=== PATIENT | male | born 1955 | race Caucasian/White ===

== ENCOUNTER → 2017-07-03 | Outpatient (CLI) | payer OTHER ==
[~2017-07-03] MED LIST: DRV100 PO
[2017-07-03 12:40] LABS: BASO % 0.8 %; BASO ABS # 0.06 K/uL (0-0.2); COMPLETE YES; HEMATOCRIT 44.6 % (42-52); IG% 0.4 %; LYMPH % 27.2 %; LYMPH ABS # 2.12 K/uL (1.2-3.4); MEAN CORPUSCULAR HEMOGLOBIN 30.7 pg (25-34); MEAN CORPUSCULAR HGB CONC 33.4 g/dl (32-36); MEAN PLATELET VOLUME 9.6 fL (7.4-10.4); MONO % 9.3 %; NEUT % 58.3 %; PLATELET COUNT 337 K/uL (130-400); RED BLOOD COUNT 4.85 M/uL (4.7-6.1); WHITE BLOOD COUNT 7.78 K/uL (4.8-10.8)
[2017-07-03 12:52] LABS: CHOLESTEROL/HDL RATIO 8.1
== END | disposition home or self-care (01) ==
LOC: C.LABBFT 07:57
PROVIDERS: ATTEND Physician Assistant Medical
DX: E78.5 Hyperlipidemia, unspecified (principal); D72.829 Elevated white blood cell count, unspecified

== ENCOUNTER → 2017-07-17 | Outpatient (CLI) | payer OTHER ==
[2017-07-17 17:22] LABS: BLOOD UREA NITROGEN 19 mg/dl (7-18); CALCIUM 9.2 mg/dl (8.5-10.1); CARBON DIOXIDE 30 mmol/L (21-32); GLUCOSE 87 mg/dl (70-99); POTASSIUM 4.4 mmol/L (3.5-5.1); SODIUM 140 mmol/L (136-145)
== END | disposition home or self-care (01) ==
LOC: C.LABBFT 14:08
PROVIDERS: ATTEND Physician Assistant Medical
DX: I10 Essential (primary) hypertension (principal)

== ENCOUNTER → 2017-09-01 | Outpatient (CLI) | payer OTHER | END | disposition home or self-care (01) | LOC: C.LAB1850 17:04 | PROVIDERS: ATTEND Physician Assistant Medical | DX: E55.9 Vitamin D deficiency, unspecified (principal) ==

== ENCOUNTER → 2017-09-18 | Outpatient (CLI) | payer OTHER ==
--- NOTE | 2017-09-18 08:38 | DIAGNOSTIC IMAGING REPORT ---
ULTRASOUND OF THE ABDOMINAL AORTA CLINICAL HISTORY: Aneurysm screening. Family history of aortic aneurysm. COMPARISON STUDY: No priors. TECHNIQUE: Multiple arreaga scale, color Doppler, and spectral Doppler sonograms of the abdominal aorta and iliac arteries are performed. Images are reviewed in the transverse and longitudinal planes. FINDINGS: There is minimal atherosclerotic calcification and irregularity noted throughout the abdominal aorta. The proximal abdominal aorta measures 2.4 cm in AP diameter, the mid abdominal aorta measures 2.1 x 1.5 cm, and the distal abdominal aorta measures 1.8 x 1.9 cm. The right common iliac artery measures up to 1.2 cm and the left common iliac artery measures up to 1.2 cm. Normal flow and spectral Doppler waveforms are seen within the aorta, with velocities measuring up to 104 cm/s. IMPRESSION: There is no sonographic evidence of abdominal aortic aneurysm. Electronically signed by: Cedrick Triplett M.D. 09/18/2017 8:37 AM Dictated Date/Time: 09/18/2017 8:30 AM
== END | disposition home or self-care (01) ==
LOC: C.ULTR 08:03
PROVIDERS: ATTEND Physician Assistant Medical
DX: Z82.49 Family history of ischemic heart disease and other diseases of the circulatory system (principal); I10 Essential (primary) hypertension; E78.5 Hyperlipidemia, unspecified

== ENCOUNTER → 2018-03-17 | Outpatient (CLI) | payer OTHER ==
[2018-03-17 12:37] LABS: BASO % 0.8 %; BASO ABS # 0.06 K/uL (0-0.2); EOS % 3.6 %; EOS ABS # 0.28 K/uL (0-0.5); HEMOGLOBIN 14.5 g/dL (14.0-18.0); IG# 0.02 K/uL (0.00-0.02); LYMPH % 28.6 %; LYMPH ABS # 2.25 K/uL (1.2-3.4); MEAN CELL VOLUME 91.5 fL (80-100); MEAN CORPUSCULAR HEMOGLOBIN 30.1 pg (25-34); MEAN PLATELET VOLUME 9.8 fL (7.4-10.4); MONO % 8.1 %; MONO ABS # 0.64 K/uL (0.11-0.59); NEUT % 58.6 %; NEUT ABS # 4.63 K/uL (1.4-6.5); PLATELET COUNT 303 K/uL (130-400); RED CELL DISTRIBUTION WIDTH SD 46.1 fL (36.4-46.3); WHITE BLOOD COUNT 7.88 K/uL (4.8-10.8)
[2018-03-17 13:08] LABS: ALBUMIN 3.5 gm/dl (3.4-5.0); ALKALINE PHOSPHATASE 81 U/L (45-117); ALT/SGPT 27 U/L (12-78); AST/SGOT 17 U/L (15-37); BLOOD UREA NITROGEN 17 mg/dl (7-18); CALCIUM 8.8 mg/dl (8.5-10.1); CARBON DIOXIDE 25 mmol/L (21-32); CHOLESTEROL 167 mg/dl (0-200); CREATININE 1.16 mg/dl (0.60-1.40); GLUCOSE 96 mg/dl (70-99); LDL CHOLESTEROL (DIRECT) 89 mg/dl; POTASSIUM 3.8 mmol/L (3.5-5.1); SODIUM 141 mmol/L (136-145); TOTAL PROTEIN 7.5 gm/dl (6.4-8.2)
== END | disposition home or self-care (01) ==
LOC: C.LABBFT 08:11
PROVIDERS: ATTEND Internal Medicine
DX: E78.5 Hyperlipidemia, unspecified (principal); E55.9 Vitamin D deficiency, unspecified; I10 Essential (primary) hypertension

== ENCOUNTER 2021-03-21 06:49 | Observation (INO) ==
--- NOTE | 2021-02-27 12:46 | PAT Medication Instructions ---
Medication Instructions Date of Service February 27, 2021 Home Medications Medication Instructions Recorded rosuvastatin 5 mg tablet 5 mg PO HS #30 tab 05/25/20 sildenafil (pulm.hypertension) 20 60 mg PO .COMPLEX PRN #32 tab 09/13/20 mg tablet cholecalciferol (vitamin D3) 25 mcg (1,000 unit) capsule 2,000 unit PO QAM coQ10 (ubiquinol) 100 mg capsule 100 mg PO QAM omega-3 fatty acids 1,000 mg capsule 1,000 mg PO QAM rosuvastatin 5 mg tablet 5 mg PO HS levothyroxine 75 mcg tablet 75 mcg PO QAM naproxen sodium 220 mg tablet (Aleve) 220 mg PO Q8H PRN sildenafil 60 mg PO DIRECTED PRN telmisartan 20 mg tablet 20 mg PO QAM ASK your surgeon for instructions naproxen sodium 220 mg tablet (Aleve) 220 mg PO Q8H PRN STOP taking 2 weeks before surgery (or as soon as possible if surgery is within 2 weeks) coQ10 (ubiquinol) 100 mg capsule 100 mg PO QAM omega-3 fatty acids 1,000 mg capsule 1,000 mg PO QAM DO NOT take the morning of surgery cholecalciferol (vitamin D3) 25 mcg (1,000 unit) capsule 2,000 unit PO QAM sildenafil 60 mg PO DIRECTED PRN telmisartan 20 mg tablet 20 mg PO QAM Take morning of surgery With a small sip of water, OTHERWISE NOTHING TO EAT OR DRINK AFTER MIDNIGHT: levothyroxine 75 mcg tablet 75 mcg PO QAM Take evening before surgery rosuvastatin 5 mg tablet 5 mg PO HS sildenafil 60 mg PO DIRECTED PRN (if needed) Other Notes If you have any questions please call us at [phone] or [phone] or [phone] or [phone]
--- NOTE | 2021-03-04 09:32 | Anesthesiology Consultation ---
Date of Service March 04, 2021 Assessment & Plan (1) Encounter for pre-operative examination: COVID screening: Per assessment on 03/04: Travel screen negative, no known COVID- 19 positive contacts or current COVID-19 related symptoms. Patient vaccinated. Surgeon arranging preop COVID testing. Awaiting results. Chart Review Chart Review: Acceptable Risk for Surgery and Patient seen in Pre Admission Testing Teaching & Discussion Pre-Anesthesia Teaching/Discussion Notes: Instructed NPO after midnight before surgery,except medications with 15 cc of water. Medication instructions provided according to the PAT guidelines. History Surgery Operation Date: 03/21/21 07:30 Proposed Procedures p Robotic Laparoscopic Radical Retropubic Prostatectomy, Possible Open, Possible Pelvic Lymph Node Disection Possible Suprapubic Tube Placement - Hever Alston, Height/Weight Height: 5 ft 10 in Weight: 97.9 kg Allergies Allergy/AdvReac Type Severity Reaction Status Date / Time atorvastatin AdvReac muscle Verified 02/27/21 10:53 weakness Medications Home Medications Medication Instructions Recorded Confirmed Last Taken cholecalciferol (vitamin D3) 25 2,000 unit PO QAM 01/17/20 02/27/21 Unknown mcg (1,000 unit) capsule coQ10 (ubiquinol) 100 mg capsule 100 mg PO QAM 01/17/20 02/27/21 Unknown omega-3 fatty acids 1,000 mg 1,000 mg PO QAM 01/17/20 02/27/21 Unknown capsule rosuvastatin 5 mg tablet 5 mg PO HS #30 tab 05/25/20 02/27/21 Unknown levothyroxine 75 mcg tablet 75 mcg PO QAM 02/27/21 02/27/21 Unknown naproxen sodium 220 mg tablet 220 mg PO Q8H PRN 02/27/21 02/27/21 Unknown (Aleve) sildenafil 60 mg PO DIRECTED PRN 02/27/21 02/27/21 Unknown telmisartan 20 mg tablet 20 mg PO QAM 02/27/21 02/27/21 Unknown Past Medical History Medical History Acid reflux Diet controlled Diverticular disease History of duodenal ulcer Remote hx in early HLD (hyperlipidemia) HTN (hypertension) Hypothyroidism Osteoarthritis Prostate cancer Dx 10/2020 Tinnitus Exercise / Class Metabolic Activity II 4-5 Yardwork/Stairs/Walk up hill Past Family History Family History Brother Hypercholesterolemia Other No family history of adverse response to anesthesia Past Surgical History Surgical History History of prostate biopsy History of wisdom tooth extraction Past Anesthesia History No Hx of Anesthesia Complications and No Family Hx of Anesthesia Complications History of PONV No Hx of PONV and No Hx of Motion Sickness Social History Smoking Status: Never smoker Do You Dip or Chew Tobacco: No Hx Alcohol Use: Yes alcohol intake frequency: holidays/special occasions only Hx Substance Use: No substance use type: does not use Review of Systems Patient denies chest pain, shortness of breath, dyspnea on exertion, fever, chills, cough, wheezing, palpitations. Physical Exam Vital Signs VITALS BP 121/83 P 85 TEMP WNL SP02 96%RA RESP 18 PHYSICAL Full cervical extension range of motion. Full TMJ range of motion. TMD 3 finger breaths Mallampati Score 1 Dentition: missing molars/sides, + crown (side) Lungs: clear throughout to auscultation Cardiac: regular rate and rhythm, no murmurs noted Spine: normal Carotid arteries: negative bruit Extremities: no edema Lab Results Anesthesia Preop Results Results Anesthesia Widget: WBC 9.90 K/uL (4.8-10.8) 03/04/21 Hgb 15.9 g/dL (14.0-18.0) 03/04/21 Hct 46.8 % (42-52) 03/04/21 Plt 509 K/uL (130-400) H 03/04/21 Na 139 mmol/L (136-145) 03/04/21 K 4.5 mmol/L (3.5-5.1) 03/04/21 Cl 106 mmol/L (98-107) 03/04/21 CO2 27 mmol/L (21-32) 03/04/21 BUN 19 mg/dl (7-18) H 03/04/21 Creat 1.06 mg/dl (0.6-1.4) 03/04/21 Glucose Level 102 mg/dl (70-99) H 03/04/21 TSH 1.790 uIu/ml (0.300-4.500) 03/04/21 HA1c 5.7 % (4.5-5.6) H 03/04/21 Urine Color Dark Yellow 03/04/21 Urine Appearance Turbid (Clear) A 03/04/21 Urine pH 5.0 (4.5-7.5) 03/04/21 Urine Specific [place] 1.025 (1.000-1.030) 03/04/21 Urine Protein Negative (Negative) 03/04/21 Urine Glucose (UA) Negative (Negative) 03/04/21 Urine Ketones Negative (Negative) 03/04/21 Urine Blood Negative (Negative) 03/04/21 Urine Nitrite Negative (Negative) 03/04/21 Urine Bilirubin Negative (Negative) 03/04/21 Urine Urobilinogen Negative (Negative) 03/04/21 Urine Leukocyte Esterase Negative (Negative) 03/04/21 Urine WBC (Auto) 1-5 /hpf (0-5) 03/04/21 Urine RBC (Auto) 0-4 /hpf (0-4) 03/04/21 Urine Hyaline Casts (Auto) 1-5 /lpf (0-5) 03/04/21 Urine Epithelial Cells (Auto) 0-5 /lpf (0-5) 03/04/21 Urine Bacteria (Auto) Negative (Negative) 03/04/21 Blood Type O Positive 03/04/21 Antibody Screen NEGATIVE 03/04/21 Testing Electrocardiogram Date: 03/04/21 NSR at 82bpm. Inferior infarct. NS TWA. Inferior infarct cited on 06/25/17 [facility] EKG (scanned into [employer]). Unremarkable stress echo done 07/2017. Chest X-Ray Date: 03/04/21 Findings: + NAD Stress Test Date: 07/28/17 Type: exercise Negative exercise stress echo/ECG for ischemia 99% MPHR. No exercise-induced chest pain. 10.1 METS. Rest EF 55 to 60%. Mild concentric LVH. No si gnificant valvular disease.
[~2021-03-21 06:49] MED LIST changes: -DRV100 PO; +HEPARIN SOD 5,000 UNIT/0.5 ML VIAL SQ SCH; +LACTATED RINGER'S 1,000 ML IV SCH; +LR 15ML/HR IV SCH; +ceFAZolin 2000MG 2,000 MG/15 ML SYR IV SCH
[2021-03-21] MEDS ORDERED: PROMETHAZINE HCL 12.5 MG in SODIUM CHLORIDE 0.9% 50 ML IV PRN (07:10)
[2021-03-21] MEDS ORDERED: HYDROmorphone INJ 1 MG/ML SYRINGE IV PRN (07:10)
[2021-03-21] MEDS ORDERED: ePHEDrine sulfate 50 MG/ML AMP IV PRN (07:10)
[2021-03-21] MEDS ORDERED: ONDANSETRON INJ 2 MG/ML 2 ML VIAL IV PRN ×2 (07:10→13:50)
[2021-03-21] MEDS ORDERED: ATROPINE SULFATE 0.1 MG/ML 10ML SYR IV PRN (07:10)
--- NOTE | 2021-03-21 07:23 | History & Physical Report ---
Date of Service March 21, 2021 Assessment & Plan (1) Prostate cancer: Plan: Risks and benefits discussed at length for procedure. These include bleeding, infection, injury to surrounding tissues or organs, and risks associated with anesthesia. Patient states understanding and agrees to proceed. Will sign consent and proceed. Plan for Robot Assisted Prostatectomy with possible pelvic lymph node dissection bilateral. History of Present Illness Primary Care Provider: Cornell Malhotra MD Patient here for procedure. No changes in medical issues. No major changes in urinary issues. Continued issues and concerns. No change in pain or discomfort. No severe fevers or chills. No chest pain or shortness of breath. Risks and benefits discussed at length for procedure. These include bleeding, infection, injury to surrounding tissues or organs, and risks associated with anesthesia. Patient and/or family states understanding and agrees to proceed. Consent and supporting information completed. Allergies Allergy/AdvReac Type Severity Reaction Status Date / Time atorvastatin AdvReac muscle Verified 02/27/21 10:53 weakness Home Medications Medication Instructions Recorded Confirmed Type cholecalciferol (vitamin D3) 25 2,000 unit PO QAM 01/17/20 02/27/21 History mcg (1,000 unit) capsule coQ10 (ubiquinol) 100 mg capsule 100 mg PO QAM 01/17/20 02/27/21 History omega-3 fatty acids 1,000 mg 1,000 mg PO QAM 01/17/20 02/27/21 History capsule rosuvastatin 5 mg tablet 5 mg PO HS #30 tab 05/25/20 02/27/21 Rx levothyroxine 75 mcg tablet 75 mcg PO QAM 02/27/21 02/27/21 History naproxen sodium 220 mg tablet 220 mg PO Q8H PRN 02/27/21 02/27/21 History (Aleve) sildenafil 60 mg PO DIRECTED PRN 02/27/21 02/27/21 History telmisartan 20 mg tablet 20 mg PO QAM 02/27/21 02/27/21 History Past Med/Surg History Medical History Acid reflux Diet controlled Diverticular disease History of duodenal ulcer Remote hx in early HLD (hyperlipidemia) HTN (hypertension) Hypothyroidism Osteoarthritis Prostate cancer Dx 10/2020 Tinnitus Surgical History History of prostate biopsy History of wisdom tooth extraction Family History Brother Hypercholesterolemia Other No family history of adverse response to anesthesia Social History Smoking Status: Never smoker Second Hand Exposure: Yes (hx); Do You Dip or Chew Tobacco: No; Hx Alcohol Use: Yes Hx Substance Use: No Preferred Language: [place] Communication Ability: Effective Mechanical Service Specialist Required: No Beliefs That Will Affect Care: None marital status: Current Living Situation: Spouse current occupational status: employed Feels Safe at Home: Yes Safety Concerns: Feels Safe At This Time Assistive Devices: Glasses Review of Systems All systems reviewed & are unremarkable except as noted in HPI & below Physical Exam Physical Exam: General: Alert/Arousable. No Acute illness. . HEENT: Inspection normal. Normal inspection of face. Normal inspection of neck. Psychologic: Normal affect/No change in mentation. Respiratory: No use of accessory muscles. No respiratory changes or exacerbation or changes with tachypnea or dyspnea. Cardiovascular: No tachycardia Skin: [place] and Dry. No new rashes or visible lesions. Abdomen: Normal inspection. No guarding. Results & Data ([facility]) Vital Signs (Past 12 Hours) Vital Signs Temp Pulse Resp BP Pulse Ox 03/21/21 07:12 37.1 C 85 20 122/81 94 PG Care Time/CCT Total # of Minutes Spent Total Time Spent with Patient: Total time spent is greater than 50% in coordination of care (as documented) at patient's floor/unit and/or counseling patient: Coding Level of Care Code None Diagnoses Prostate cancer C61
[2021-03-21] MEDS ORDERED: BUPIVACAINE 0.5 % 5 MG/1 ML MPF 30ML VIAL ONE (07:53)
[2021-03-21] MEDS ORDERED: fentaNYL citrate 100 MCG/2 ML VIAL ONE (08:01)
[2021-03-21] MEDS ORDERED: MIDAZOLAM HCL 1 MG/ML 2ML VIAL ONE (08:01)
[2021-03-21] MEDS ORDERED: ROCURONIUM BROMIDE 10 MG/ML 5 ML VIAL IV ONE ×3 (09:21→11:22)
[2021-03-21] MEDS ORDERED: LIDOCAINE 2% 2 ML VIAL/AMP(20MG/ML) INFIL ONE (09:21)
[2021-03-21] MEDS ORDERED: PROPOFOL IV EMULSION 10 MG/ML 20 ML VIAL IV ONE (09:21)
[2021-03-21] MEDS ORDERED: ONDANSETRON INJ 2 MG/ML 2 ML VIAL ONE (09:21)
[2021-03-21] MEDS ORDERED: LARYING-O-JET KIT (LTA) ONE (09:21)
[2021-03-21] MEDS ORDERED: DEXAMETHASONE SOD INJ 4 MG/ML VIAL ONE (09:21)
[2021-03-21] MEDS ORDERED: HYDROmorphone INJ 2 MG/ML SYR/VIAL ONE (09:39)
[2021-03-21] MEDS ORDERED: ePHEDrine sulfate 50 MG/ML SYR ONE (09:53)
[2021-03-21] MEDS ORDERED: GLYCOPYRROLATE 0.2 MG/ML VIAL ONE (09:53)
[2021-03-21] MEDS ORDERED: NEOSTIGMINE METHYLSULFATE 1 MG/ML 10ML VIAL ONE (09:53)
[2021-03-21] MEDS ORDERED: PHENYLEPHRINE 100MCG/ML 5ML SYR ONE ×2 (09:53→10:39)
[2021-03-21] MEDS ORDERED: FLOSEAL HEMOSTATIC MATRIX 10ML TOP ONE (11:11)
--- NOTE | 2021-03-21 12:14 | Operative Report ---
PG Post Operative Report Pre & Post Diagnosis Operation Date: 03/21/21 08:30 Pre-Op Diagnosis: Prostate Cancer Post-Op Diagnosis: Prostate Cancer I identified the patient and participated in the time-out.: Yes Procedure Operation Date: 03/21/21 08:30 Actual Procedures p Robotic Laparoscopic Radical Retropubic Prostatectomy and bilateral pelvic lymph node dissection (Not Applicable) - Hever Alston DO Surgeon Hever Alston, II, DO Administrative Services Specialist KIARA Casper Estimated Blood Loss 50 Findings Consistent with Post-Op Diagnosis Significant adhesion posterior prostate Specimens Prostate Left Nodes Right Nodes Drains 18 Fr Silicon Catheter 10 Fr Flat drain Anesthesia Type General Complications none Disposition Disposition: Recovery Room Indications Patient with Prostate Cancer. Risk and benefits were discussed at length. Patient elected to undergo robotic assisted laparoscopic Radical Prostatectomy. Description of Procedure The patient was brought to the operative suite and placed under general endotracheal intubation anesthesia in the supine position. The patient was transferred to the dorsal lithotomy position. At this point, the patient prepped and draped in the usual sterile fashion and a timeout was completed. Preoperative antibiotics of Ancef 2 grams had been given. SANG's and SCD's were placed on the patient's lower extremities. A catheter was placed using sterile technique. With the time out completed the patient was placed into Trendelenburg and the skin at the umbilicus was anesthetized. A small incision was made superior to the umbilicus. A Varess Needle was placed and confirmed to be in the abdominal cavity. Water drop test passed. The Abdominal cavity was insufflated to 15 mmHG. The camera port was then placed. A laparoscopic camera was placed into the port and the abdominal cavity inspected. No concerning features were noted. At this point, the skin was marked for port placement and 8mm working ports were placed. The skin was anesthetized down to fascia and an approx 1cm incision was made to place the 3 x 8mm ports. A 12 mm and 5 mm human resources assistant ports were also placed in similar fashion under direct visualization. The patient was transferred into steep Trendelenburg position and the legs lowered. The robot was positioned and docked. The camera was placed and all trocars were positioned under direct visualization. Pennie CRAIG was integral in port placement, camera utilization, and docking procedure. She remained in sterile attire and then proceeded to assist the remainder of the case. At this point, I transitioned to the robotic console. At this point, the sigmoid colon was mobilized superiorly and the pelvis assessed. Adhesions were freed to allow mobilization. The peritoneum in the midline was opened between rectum and bladder and the vas deferens and seminal vesicles exposed. These were dissected with blunt technique. The vas was clipped and cut and mobilized. Cautery was used to assist dissection avoiding the tissue posteriorly near the rectum. The tissues lateral to the seminal vesicles were clipped with a hemolock and all bleeding controlled. This was taken as inferior as possible from this position. The medial umbilical ligaments were then identified and the peritoneum directly lateral on the right followed by the left was opened. The tissues were bluntly dissected to free the bladder's lateral attachments. This was taken down to the pubic bone and exposed the endopelvic fascia bilaterally. The medial ligaments were cut and the bladder dropped. The tissues was dissected anterior to the prostate. The endopelvic fascia on each side was then opened and the lateral edges of the prostate dissected. The Dorsal venous complex of the prostate was dissected and assessed. A 2-0 suture was used to ligate the vessels. A suspension stitch was used and clipped. Electrocautery was used to cut the anterior attachments, the puboprostatic ligaments, and venous tissues. The alves was manipulated to better visual the bladder neck and dissection was taken using electrocautery. The bladder neck was opened and dissected from the prostate. The UO were identified and dissection taken in a direction to avoid each side. The vas stump and seminal vesicles were exposed and used to assist in traction to dissect. The prostatic pedicles were better exposed. The posterior prostate was dissected. An attempt was made to limit cautery and utilize cold dissection of the lateral posterior prostate to attempt preservation of the neurovascular bundle bilaterally. Hemolock clips were utilized to clip the prostatic pedicle bilaterally. The dissection was taken to the apex of the prostate. The anterior prostate was released and the urethra exposed. Both sides posteriorly were fairly adhered to the surrounding tissues. Cold cutting was used to open the anterior portion and expose the catheter. This was removed and the urethra incised. The prostate was further freed and grasped and removed from the field. The entire dissection bed was inspected. Hemostatic agent was placed in the region. No areas of injury or bleeding was noted. Care was taken to examine the perirectal tissues. A probe was placed and no injuries or other issues were observed. The bladder neck and urethra were then approximated with a running barbed suture starting at the 5 o'clock position and moving to the 12 o'clock on each side. A small area at the anterior bladder was closed with a 2-0 Vicryl suture in two layers. This was tied at the anterior portion. A leak test was completed without any evidence of issues. The right and left pelvic lymph tissue was identified in relation to the iliac vessels. Distal dissection was taken to the Node of [place]. Inferiorly the obtorator vessels and nerve were identified. Lymphatic tissue within the surround fat tissue was dissected. This packet of tissues were sent for pathologic analysis and lymph node assessment. This was done for each separate side. Hemostatic agent was placed on the exposed vessels. The entire dissection space was inspected one final time. No bleeding or injuries or areas of concern were noted. No tumor or other concerning features were noted. At this point, the robot was undocked and moved away from the patient. The patient was taken out of Trendelenberg. The port sites were all assessed laparoscopically. The endoscopic bag was moved into the midline port. The 12 mm port site was used to place a 10 Fr Flat drain. This was secured with a nylon suture. The other ports were assessed and no issues observed. The umbilical incision was opened further exposing fascia which was then opened in order to removed the prostate in the bag. The prostate was removed. A running PDS suture was used to close fascia. The skin at each site was closed with [place]. The area was cleaned and glue placed on each incision. The patient was cleaned and bandaged, aroused from anesthesia, and transferred to the pacu in stable condition having tolerated the procedure well with no complications. I was present and participated in all aspects of the procedure. Pennie CRAIG was critical in the portions as mentioned above. Will plan to observe postoperatively and monitor. Alves to be remain in place until followup. I attest to the content of the Intraoperative Record and any orders documented therein. Any exceptions are noted below.
[2021-03-21] MEDS: fentaNYL citrate 100 MCG/2 ML VIAL IV PRN ×2 (12:58→13:04)
[2021-03-21 13:08] LABS: Basophils # (auto) 0.03 K/uL (0-0.2); Basophils % (auto) 0.2 %; Eosinophils # (auto) 0.02 K/uL (0-0.5); Eosinophils % (auto) 0.1 %; Hemoglobin 14.7 g/dL (14.0-18.0); Immature Granulocytes # (auto) 0.19 K/uL (0.00-0.02); Lymphocytes # (auto) 0.95 K/uL (1.2-3.4); Mean Corpuscular Hemoglobin 31.8 pg (25-34); Mean Corpuscular Volume 95.2 fL (80-100); Monocytes # (auto) 0.14 K/uL (0.11-0.59); Monocytes % (auto) 0.7 %; Neutrophils # (auto) 17.61 K/uL (1.4-6.5); Platelet Count 434 K/uL (130-400); RDW Coefficient of Variation 15.8 % (11.5-14.5); RDW Standard Deviation 54.6 fL (36.4-46.3); Red Blood Count 4.62 M/uL (4.7-6.1); White Blood Count 18.94 K/uL (4.8-10.8)
[2021-03-21 13:19] LABS: Mean Corpuscular Hgb Conc 33.4 g/dL (32-36)
--- NOTE | 2021-03-21 13:24 | Anesthesiology Progress Note ---
Date of Service March 21, 2021 Anesthesia Post Procedure Vital Signs Vital Signs: Temp Pulse Pulse Resp BP Pulse Ox 03/21/21 13:20 36.2 C L 70 14 111/68 98 03/21/21 13:10 89 14 109/78 93 03/21/21 13:00 66 14 106/79 99 03/21/21 12:50 70 16 108/77 100 03/21/21 12:40 67 14 117/78 100 03/21/21 12:30 74 16 118/83 100 03/21/21 12:20 36.0 C L 88 15 118/89 97 03/21/21 07:12 37.1 C 85 20 122/81 94 Pain Intensity Abdomen: Pain Intensity: 3 Transfer of Care Handoff Completed per policy Notes Mental Status: alert / awake / arousable and participated in evaluation Patient Amnestic to Procedure: Yes Nausea / Vomiting: adequately controlled Pain: adequately controlled Airway Patency, RR, SpO2: stable & adequate BP & HR: stable & adequate Hydration State: stable & adequate Anesthetic Complications: no major complications apparent and Pt Satisfied with anesthetic care
[2021-03-21 13:27] LABS: BUN Creatinine Ratio 14.8 (10-20); Calcium 8.5 mg/dl (8.5-10.1); Creatinine Clr Calc Pharmacy 68.3 ml/min; Est GFR (African American) 67.3 ml/min; Est GFR (Non-African American) 58.1 ml/min; Potassium 4.2 mmol/L (3.5-5.1)
[2021-03-21] MEDS ORDERED: oxyCODONE HCL IR 5 MG TAB (IMMEDIATE RELEASE) PO PRN (13:50)
[2021-03-21] MEDS ORDERED: MoRPHine SULFATE 4 MG/ML 1 ML CARP\\VIAL IV PRN (13:50)
[2021-03-21] MEDS ORDERED: MoRPHine SULFATE 2 MG/ML CARP IV PRN (13:50)
[2021-03-21] MEDS: LACTATED RINGER'S 1,000 ML IV SCH (14:25)
[2021-03-21] MEDS: ACETAMINOPHEN 325 MG TAB PO PRN ×2 (14:27→20:22)
[2021-03-21] MEDS: ceFAZolin 2000MG 2,000 MG/15 ML SYR IV SCH (16:45)
[2021-03-21] MEDS: HEPARIN SOD 5,000 UNIT/0.5 ML VIAL SQ SCH (20:23)
[2021-03-21] MEDS ORDERED: ROSUVASTATIN CALCIUM 5 MG TAB PO SCH (21:00)
[2021-03-21] MEDS ORDERED: COUGH DROP (SUGAR FREE) LOZ 24 LOZ/1 BOX BUCCAL ONE (23:58)
[2021-03-22] MEDS: LACTATED RINGER'S 1,000 ML IV SCH ×2 (00:01→10:51)
[2021-03-22] MEDS: ceFAZolin 2000MG 2,000 MG/15 ML SYR IV SCH (00:01)
[2021-03-22] MEDS: oxyCODONE HCL IR 5 MG TAB (IMMEDIATE RELEASE) PO PRN ×3 (00:02→16:17)
[2021-03-22] MEDS ORDERED: LEVOTHYROXINE SODIUM 75 MCG TABLET PO SCH (06:30)
[2021-03-22 06:31] LABS: Basophils # (auto) 0.02 K/uL (0-0.2); Basophils % (auto) 0.1 %; Hematocrit (blood only) 40.7 % (42-52); Hemoglobin 13.5 g/dL (14.0-18.0); Immature Granulocytes # (auto) 0.19 K/uL (0.00-0.02); Immature Granulocytes % (auto) 1.2 %; Lymphocytes # (auto) 1.64 K/uL (1.2-3.4); Lymphocytes % (auto) 10.4 %; Mean Corpuscular Hemoglobin 31.3 pg (25-34); Mean Corpuscular Hgb Conc 33.2 g/dL (32-36); Mean Corpuscular Volume 94.2 fL (80-100); Mean Platelet Volume 8.9 fL (7.4-10.4); Monocytes # (auto) 1.35 K/uL (0.11-0.59); Monocytes % (auto) 8.6 %; Neutrophils # (auto) 12.56 K/uL (1.4-6.5); Neutrophils % (auto) 79.7 %; Platelet Count 451 K/uL (130-400); RDW Coefficient of Variation 15.7 % (11.5-14.5); RDW Standard Deviation 53.7 fL (36.4-46.3); Red Blood Count 4.32 M/uL (4.7-6.1); White Blood Count 15.76 K/uL (4.8-10.8)
[2021-03-22 07:00] LABS: BUN Creatinine Ratio 12.9 (10-20); Calcium 8.5 mg/dl (8.5-10.1); Est GFR (African American) 81.5 ml/min; Est GFR (Non-African American) 70.3 ml/min; Potassium 4.1 mmol/L (3.5-5.1)
[2021-03-22] MEDS ORDERED: TELMISARTAN 20 MG TAB PO SCH (09:00)
[2021-03-22] MEDS: HEPARIN SOD 5,000 UNIT/0.5 ML VIAL SQ SCH (09:44)
--- NOTE | 2021-03-22 10:10 | Urology Progress Note ---
Date of Service March 22, 2021 Assessment & Plan (1) Prostate cancer: Plan: 65 yo M POD #1 s/p Robotic Laparoscopic-Assisted Radical Retropubic Prostatectomy with Dr. Alston. - Doing well, progressing as expected - Afebrile, post op lab work reviewed and as expected - Minimal pain, managing well with PO medication - Tolerating clear liquid diet - advance to full liquids, d/c IV fluids - Encouraged OOB ambulation - Incisions appropriate - Rasmussen catheter intact, patent and draining clear yellow with minimal pink tinge - Maintain Rasmussen catheter upon discharge - D/c JUS drain prior to discharge - Expected clinical course reviewed, all questions answered - Anticipate discharge to home later today if he continues to progress as expected - Will arrange appropriate outpatient follow-ups Admission and Anticipated Discharge Date Admission Date: March 21, 2021 Subjective 65 yo M POD #1 s/p Robotic Laparoscopic Radical Retropubic Prostatectomy and bilateral pelvic lymph node dissection. Patient seen and examined at bedside this AM. No acute issues overnight, though notes that he did not sleep well. Reports some incisional pain, well managed with PO oxycodone medication. Rasmussen catheter intact, patent and draining clear yellow urine with minimal pink. Tolerating clear liquid diet. No nausea or vomiting. He has been out of bed to the chair. No fever or chills. JUS drain with 25 mL output overnight. Review of Systems Constitutional: as per Subjective / HPI Gastrointestinal: as per Subjective / HPI Genitourinary: + as per Subjective / HPI Physical Exam Constitutional: well developed and well nourished; no acute distress and not ill appearing Respiratory: normal respiratory effort and able to speak in complete sentences; no respiratory distress and no labored breathing Cardiovascular: Extremities: no pedal edema Gastrointestinal (Abdomen): Inspection/Auscultation: abdomen normal to inspection; abdomen not distended Percussion/Palpation: abdomen soft; abdomen nontender and no guarding Skin: Surgical incisions appear healthy and well approximated with atul intact, no erythema. JUS right abdomen with scant sanguinous output, dressing with moderate sanguinous drainage. Neurologic: moves all extremities and awake Psychiatric: Orientation: alert, oriented x 3 and cooperative Results & Data ([facility]) Vital Signs (Past 12 Hours) Vital Signs Temp Pulse Resp BP Pulse Ox 03/22/21 07:11 36.7 C 70 18 161/91 H 97 03/22/21 03:23 36.7 C 88 16 137/84 94 03/22/21 00:17 36.6 C 103 H 20 147/97 H 97 PG Care Time/CCT Total # of Minutes Spent Total Time Spent with Patient: Total time spent is greater than 50% in coordination of care (as documented) at patient's floor/unit and/or counseling patient: Coding Level of Care Code 01530 Subseq Hosp Care Lvl 2 Diagnoses Prostate cancer C61
[2021-03-22] MEDS: ACETAMINOPHEN 325 MG TAB PO PRN (16:17)
== END 2021-03-22 16:56 | disposition home or self-care (01) ==
LOC: ASU 06:49 → INTOOBSV 12:24 → 3E 12:24
DX: E78.5 Hyperlipidemia, unspecified; Z79.899 Other long term (current) drug therapy; I10 Essential (primary) hypertension; K21.9 Gastro-esophageal reflux disease without esophagitis; C61 Malignant neoplasm of prostate

== ENCOUNTER 2024-05-12 05:39 | Inpatient (IN) ==
--- NOTE | 2024-05-02 11:32 | Anesthesiology Consultation ---
Date of Service May 02, 2024 Assessment & Plan (1) Encounter for pre-operative examination: Infectious disease screening: Per assessment on 05/02/24: No known recent infectious disease contacts. Patient had onset of URI symptoms 2+ weeks ago- symptoms resolved except residual cough (improving). Multiple Covid home tests negative. DOS not until 05/12/24. Patient advised to contact surgeon/PAT if symptoms not resolved/at baseline prior to surgery. Chart Review Chart Review: Acceptable Risk for Surgery and Patient NOT seen in Pre Admission Testing History Surgery Operation Date: 05/12/24 07:15 Proposed Procedures p Laparoscopic Right Hemicolectomy - Camden Durbin, DO Height/Weight Height: 5 ft 10 in Weight: 97.522 kg Allergies Allergy/AdvReac Type Severity Reaction Status Date / Time atorvastatin AdvReac Unknown muscle Verified 05/02/24 10:24 weakness Medications Home Medications Medication Instructions Recorded Confirmed Last Taken cholecalciferol (vitamin D3) 125 125 mcg PO QAM 03/26/21 05/02/24 03/10/24 07:00 mcg (5,000 unit) tablet (Vitamin D3) melatonin 5 mg chewable tablet 5 mg PO HS PRN Sleep 03/26/21 05/02/24 7 Months Ago ~06/14/22 coQ10 (ubiquinol) 100 mg capsule 100 mg PO QAM 09/04/21 05/02/24 03/10/24 07:00 krill 350 mg-omega-3 90 mg-dha 24 1 cap PO QAM 09/04/21 05/02/24 03/10/24 07:00 mg-epa 50 hc-kozrdgw-azjul capsule (MegaRed [place]-3 Krill Oil) famotidine 20 mg tablet 20 mg PO UD PRN Acid Reflux 09/04/22 05/02/24 2 Months Ago ~11/12/22 ondansetron 4 mg disintegrating 4 mg PO Q6H PRN nausea and 01/12/23 05/02/24 Unknown tablet vomiting #20 tabs telmisartan 20 mg tablet 20 mg PO QAM 90 days #90 tabs 06/09/23 05/02/24 03/11/24 07:00 sildenafil (pulm.hypertension) 20 20 mg PO ONCE PRN sexual activity 08/18/23 05/02/24 03/11/24 03:15 mg tablet #30 tabs levothyroxine 75 mcg tablet 75 mcg PO QAM #90 tabs 09/04/23 05/02/24 03/11/24 07:00 aspirin 81 mg capsule 81 mg PO QAM 03/02/24 05/02/24 03/10/24 07:00 hydroxyurea 500 mg capsule 500 - 1,000 mg PO UD 03/02/24 05/02/24 03/10/24 07:00 meclizine 12.5 mg tablet 12.5 - 25 mg PO TID PRN dizziness 03/02/24 05/02/24 Unknown omeprazole 20 mg capsule,delayed 40 mg PO DAILY PRN gerd 03/02/24 05/02/24 Unknown release polyethylene glycol 3350 17 17 g PO DAILY PRN Constipation 03/02/24 05/02/24 Unknown gram/dose oral powder (Miralax) rosuvastatin 5 mg tablet 5 mg PO HS 03/02/24 05/02/24 03/10/24 22:30 Past Medical History Medical History Acid reflux Allergic rhinitis Anxiety Arthritis Back problem Chronic anemia Colon cancer (03/2024) Constipation Diverticular disease Erectile dysfunction History of duodenal ulcer Remote hx in early History of prostate cancer Dx 2020, s/p prostatectomy History of prostate cancer (2020) Hypercholesteremia Hypercholesteremia Hypertension Hypothyroidism Male stress incontinence Myalgia chronic Myelofibrosis Osteoarthritis Polycythemia vera Dx 06/2023, w/myelofibrosis Follows with Dr. Valera Syncope Remote hx s/p unremarkable holter, no recent issues Tinnitus Past Family History Family History Brother Carotid artery disease Heart disease H/O cardiac surgery Mother Diabetes Stroke Father , 81yo Heart disease Cardiac stent Arthritis Aunt Diabetes Grandfather Heart disease Family/Other Hypertension Other No family history of adverse response to anesthesia Denies family history of Ovarian cancer Prostate cancer Breast cancer Colorectal cancer Past Surgical History Surgical History History of colonoscopy [facility] (02/2024) History of esophagogastroduodenoscopy (EGD) History of prostate biopsy History of robot-assisted laparoscopic radical prostatectomy Robotic laparoscopic radial retropubic prostatectomy, pelvic lymph node dissection (03/21/21): Grade view 2, MAC#3, ETT 7.5 at [facility] History of wisdom tooth extraction Hx laparoscopic cholecystectomy 2022 Social History Smoking Status: Never smoker Do You Dip or Chew Tobacco: No Hx Alcohol Use: No alcohol intake frequency: other Hx Substance Use: No substance use type: does not use Lab Results Anesthesia Preop Results Results Anesthesia Widget: WBC 6.58 K/ul (4.8-10.8) 04/27/24 Hgb 11.9 g/dl (14.0-18.0) L 04/27/24 Hct 35.7 % (42.0-52.0) L 04/27/24 Plt 253 K/uL (130-400) 04/27/24 Na 141 mmol/L (136-145) 04/27/24 K 4.1 mmol/L (3.5-5.1) 04/27/24 Cl 106 mmol/L (98-107) 04/27/24 CO2 28 mmol/L (21-32) 04/27/24 BUN 25 mg/dl (6-23) H 04/27/24 Creat 1.08 mg/dl (0.6-1.4) 04/27/24 Glucose Level 86 mg/dl (70-99(Fasting)) 04/27/24 Testing Electrocardiogram Date: 05/02/24 Findings: + NSR @ (67) Other Testing Abdomen/Pelvis CT Date: 04/08/24 IMPRESSION: No acute intra-abdominal or intrapelvic abnormality. Decreased size of the previously described pathologic mesenteric lymph nodes. No new or progressive lymphadenopathy. Colonic diverticulosis. Cholecystectomy and prostatectomy. Chest CT Date: 04/08/24 IMPRESSION:No evidence of metastatic disease above the diaphragm.
[2024-05-12] MEDS: LR 15ML/HR IV SCH (06:34)
[2024-05-12] MEDS ORDERED: ONDANSETRON INJ 2 MG/ML 2 ML VIAL ONE (06:57)
[2024-05-12] MEDS ORDERED: LIDOCAINE 2% 20 MG/ML 5 ML SYR IV ONE (06:57)
[2024-05-12] MEDS ORDERED: ROCURONIUM BROMIDE 10 MG/ML 5 ML VIAL IV ONE ×2 (06:57→07:45)
[2024-05-12] MEDS ORDERED: PROPOFOL IV EMULSION 10 MG/ML 20 ML VIAL IV ONE (06:57)
[2024-05-12] MEDS ORDERED: DexMEDEtomidine HCL IV 100 MCG/ML VIAL IV ONE (06:58)
[2024-05-12] MEDS ORDERED: SUGAMMADEX SODIUM 200 MG/2 ML VIAL IV ONE ×2 (06:58→10:11)
[2024-05-12] MEDS ORDERED: MIDAZOLAM HCL 1 MG/ML 2ML VIAL ONE (06:58)
[2024-05-12] MEDS ORDERED: fentaNYL citrate PF 100 MCG/2 ML VIAL ONE (06:58)
--- NOTE | 2024-05-12 06:59 | History & Physical Bridge Note ---
Date of Service May 12, 2024 History & Physical Bridge Note I have examined the patient, reviewed the History & Physical and in the interval since the performance of the History & Physical I have noted the following changes of clinical significance: no changes noted
[2024-05-12] MEDS ORDERED: PROMETHAZINE HCL 6.25 MG in SODIUM CHLORIDE 0.9% 50 ML IV PRN (07:10)
[2024-05-12] MEDS ORDERED: FLUMAZENIL 0.1 MG/1 ML 10 ML VIAL IV PRN (07:10)
[2024-05-12] MEDS ORDERED: LABETALOL HCL IV 5 MG/ML 20ML IV PRN (07:10)
[2024-05-12] MEDS ORDERED: NALOXONE HCL 0.4 MG/1 ML VIAL/CARP IV PRN (07:10)
[2024-05-12] MEDS ORDERED: ATROPINE SULFATE 0.1 MG/ML 10ML SYR IV PRN (07:10)
[2024-05-12] MEDS ORDERED: ePHEDrine sulfate 50 MG/ML AMP IV PRN (07:10)
[2024-05-12] MEDS: ceFAZolin 2000MG 2,000 MG/15 ML SYR IV SCH ×2 (07:25→16:18)
[2024-05-12] MEDS ORDERED: HYDROmorphone INJ 2 MG/ML SYR/VIAL ONE (07:45)
[2024-05-12] MEDS: BUPIVACAINE/EPINEPHRINE 0.5% MPF 1:200,000 30 ML VIAL ONE (10:10)
--- NOTE | 2024-05-12 10:37 | Operative Report ---
PG Post Operative Report Pre & Post Diagnosis Operation Date: 05/12/24 07:15 Pre-Op Diagnosis: Primary Adenocarcinoma of Ascending Colon Post-Op Diagnosis: Primary Adenocarcinoma of Ascending Colon I identified the patient and participated in the time-out.: Yes Procedure Operation Date: 05/12/24 07:15 Actual Procedures p Laparoscopic Right Hemicolectomy(Right) - Camden Durbin DO Surgeon Camden Durbin DO Portfolio Architect Mike trotter, rose marie Comer Estimated Blood Loss 20 Findings Consistent with Post-Op Diagnosis Specimens terminal ileum, right colon, portion of transverse colon Description of Procedure After informed consent was obtained the patient was taken to the operating room and placed in supine position. After successful intubation a Rasmussen catheter was placed sterilely. The abdomen was shaved and sterilely prepped and draped in usual fashion. I began by making a supraumbilical incision through his old scar line. This was carried down through the soft tissue using cautery. Anterior fascia was opened using cautery and two #0 Vicryl stay sutures were placed. Peritoneum was elevated with hemostats and incised under direct vision using a Metzenbaum scissor. A finger sweep was performed. A 12 mm Johns trocar was placed and the abdomen was insufflated to 18 mmHg. Laparoscope was inserted and the abdomen examined in 360 degrees. Other than some adhesions in the upper abdomen no other gross abnormalities were identified. A suprapubic 5 mm port a left lower quadrant 12 mm port and eventually an upper midline 5 mm port would all be placed under direct vision. I was able to identify the cecum. We were able to retract the omentum superiorly and locate the tattoo chelo which was right at the hepatic flexure. I began by mobilizing the right colon along the white line of Toldt using blunt dissection as well as small amounts of the harmonic scalpel. We carried this up around the hepatic flexure. Once I had the right colon fully mobilized I then transected the terminal ileum several centimeters proximal to the ileocecal valve using a [employer] linear s tapler. I then identified the mid transverse colon. Next I identified the middle colic vessels and created a small window in the mesentery of the transverse colon just proximal to that. I then used a [employer] cartridge linear stapler to transect the transverse colon. I then began taking down connections which involved the omentum, some adhesions to the right lobe of the liver as well as the mesentery of the right and proximal transverse colon. I did try to stay as low on the mesentery as possible. I continued to work from the mid transverse colon towards the right upper quadrant around the hepatic flexure and towards the terminal ileum. Eventually I had the entire specimen detached. I then grasped the staple line of the small bowel with 1 grasper and the specimen with another grasper. We then extended the upper midline trocar site laterally and medially using cautery. This included the fascia and muscle. I was able to deliver the specimen out of this incision to send to pathology. I was then able to deliver the staple line of the small bowel as well as the staple line of the distal transverse colon out through this opening. We used a [employer] cartridge linear stapler to create a [id number] small bowel to transverse colon anastomosis. The common enterotomy was closed using 3-0 Monocryl in running serosal/mucosal layer followed by 3-0 silk in Lembert fashion for the serosal layer. 3-0 silk was also used to place a crotch stitch. Anastomosis was then placed back into the abdomen. Once we did this we changed our gloves. The fascia was then closed using 0- looped PDS in running fashion. We then re-insufflated the abdomen. I examined the anastomosis. It was patent with no evidence of any ischemia. The bowel was not twisted. There was adequate hemostasis. At this point we removed all the trocars and desufflated the abdomen. The fascia of the camera port was closed using 0 Vicryl in a [id number] fashion. All the wounds were thoroughly irrigated and closed using 4-0 Monocryl. Marcaine with epinephrine was injected around them for postoperative analgesia and skin glue used as a dressing. The patient was waken extubated and transferred recovery in stable condition. My physician assistants were both present for the entire case were instrumental in providing exposure, running the camera, assisting with the anastomosis, wound closure and dressing placement. I attest to the content of the Intraoperative Record and any orders documented therein. Any exceptions are noted below.
[2024-05-12] MEDS: fentaNYL citrate PF 100 MCG/2 ML VIAL IV PRN (10:45)
[2024-05-12] MEDS: ONDANSETRON INJ 2 MG/ML 2 ML VIAL IV PRN (10:55)
[2024-05-12] MEDS: HYDROmorphone INJ 1 MG/ML SYRINGE IV PRN (11:10)
--- NOTE | 2024-05-12 11:36 | Anesthesiology Progress Note ---
Date of Service May 12, 2024 Anesthesia Post Procedure Vital Signs Vital Signs: Temp Pulse Resp BP Pulse Ox O2 Del Method O2 Flow Rate 05/12/24 11:30 67 12 130/86 100 Nasal Cannula 2 05/12/24 11:20 76 14 135/78 99 Nasal Cannula 2 05/12/24 11:10 75 12 133/84 100 Nasal Cannula 2 05/12/24 11:00 72 16 142/86 H 99 Nasal Cannula 4 05/12/24 10:50 72 12 141/88 H 98 Nasal Cannula 4 05/12/24 10:40 78 16 132/85 97 Nasal Cannula 4 05/12/24 10:29 36.4 C L 74 16 126/81 99 Nasal Cannula 4 05/12/24 06:05 36.5 C 93 H 20 110/78 100 Room Air Pain Intensity Abdomen: Pain Intensity: 4 Transfer of Care Handoff Completed per policy Notes Mental Status: alert / awake / arousable Patient Amnestic to Procedure: Yes Nausea / Vomiting: adequately controlled Pain: adequately controlled Airway Patency, RR, SpO2: stable & adequate BP & HR: stable & adequate Hydration State: stable & adequate Anesthetic Complications: no major complications apparent
[2024-05-12] MEDS ORDERED: oxyCODONE HCL IR 5 MG TAB (IMMEDIATE RELEASE) PO PRN (11:59)
[2024-05-12] MEDS ORDERED: FAMOTIDINE 20 MG TAB PO PRN (11:59)
[2024-05-12] MEDS: ACETAMINOPHEN 1,000 MG/100 ML VIAL IV SCH (12:12)
[2024-05-12] MEDS: MoRPHine SULFATE 4 MG/ML 1 ML CARP\\VIAL IV PRN (14:05)
[2024-05-12] MEDS: oxyCODONE HCL IR 5 MG TAB (IMMEDIATE RELEASE) PO PRN (15:15)
[2024-05-12] MEDS: LACTATED RINGER'S 1,000 ML IV SCH (17:02)
[2024-05-12] MEDS: MELATONIN 3 MG TAB PO PRN (21:22)
[2024-05-12] MEDS: MoRPHine SULFATE 2 MG/ML CARP IV PRN (23:21)
[2024-05-13] MEDS: LEVOTHYROXINE SODIUM 75 MCG TABLET PO SCH (05:07)
[2024-05-13 07:44] LABS: Basophils # (auto) 0.02 K/uL (0.00-0.20); Basophils % (auto) 0.2 %; Eosinophils # (auto) 0.01 K/uL (0.00-0.50); Eosinophils % (auto) 0.1 %; Hematocrit (blood only) 31.9 % (42.0-52.0); Hemoglobin 10.8 g/dl (14.0-18.0); Immature Granulocytes # (auto) 0.15 K/uL (0.01-0.20); Immature Granulocytes % (auto) 1.7 %; Lymphocytes # (auto) 1.07 K/uL (1.20-3.40); Mean Corpuscular Hemoglobin 36.6 pg (25.0-34.0); Mean Corpuscular Hgb Conc 33.9 g/dL (32.0-36.0); Mean Corpuscular Volume 108.1 fL (80.0-100.0); Mean Platelet Volume 8.8 fL (9.4-12.4); Monocytes # (auto) 0.71 K/uL (0.11-0.59); Neutrophils # (auto) 6.93 K/uL (1.40-6.50); Platelet Count 180 K/uL (130-400); RDW Coefficient of Variation 13.2 % (11.5-14.5); RDW Standard Deviation 52.3 fL (36.4-46.3); Red Blood Count 2.95 M/uL (4.70-6.10); White Blood Count 8.89 K/ul (4.8-10.8)
[2024-05-13 07:51] LABS: BUN Creatinine Ratio 13.7 (10-20); Calcium 8.7 mg/dl (8.6-10.3); Creatinine Clr Calc Pharmacy 82.5 ml/min; Potassium 3.9 mmol/L (3.5-5.1)
[2024-05-13] MEDS: INFLUENZA VACC TS2024-25(65y+)/PF (IIV3) 0.5mL Syr IM ONE (07:51)
--- NOTE | 2024-05-13 09:25 | Surgery Progress Note ---
Date of Service May 13, 2024 Assessment & Plan (1) H/O right hemicolectomy: Plan: Postoperative day #1. He is doing as expected. He will try and ambulate today. We will allow him to have some clear liquid diet but I cautioned him to go very slowly. Dr. Reed covering for the weekend. Admission and Anticipated Discharge Date Admission Date: May 12, 2024 Subjective Patient seen. He had some considerable discomfort yesterday which of course is expected. It is calm down now and he states he is a 2 out of 10. Mild nausea but that has resolved. Physical Exam Physical Exam: Alert no acute distress Abdomen with expected tenderness. Incisions look good Results & Data Vital Signs (Past 12 Hours) Vital Signs Temp Pulse Pulse Resp BP Pulse Ox O2 Del Method 05/13/24 07:01 36.8 C 89 16 124/78 93 Room Air 05/13/24 03:10 36.8 C 90 16 129/81 93 Room Air 05/12/24 23:49 36.8 C 90 16 142/83 H 93 Room Air PG Care Time/CCT Total # of Minutes Spent Total Time Spent with Patient: Total time spent is greater than 50% in coordination of care (as documented) at patient's floor/unit and/or counseling patient: Coding Level of Care Code 52465 Post Operative Follow-Up Diagnoses H/O right hemicolectomy Z90.49
[2024-05-13] MEDS: COUGH DROP (SUGAR FREE) LOZ 24 LOZ/1 BOX BUCCAL STA (20:17)
[2024-05-13] MEDS: ROSUVASTATIN CALCIUM 5 MG TAB PO SCH (21:04)
--- NOTE | 2024-05-14 07:09 | Surgery Progress Note ---
Date of Service May 14, 2024 Assessment & Plan (1) H/O right hemicolectomy: Plan: Postoperative day #2 s/p laparoscopic right hemicolectomy. Patient doing well, tolerating clears however does admit to intermittent nausea at times. Denies passing gas or BM yet. For now will continue clear liquid diet for today. Discussed ambulation and OOB to the chair during the day Continue pain control. Patient also complaining of worsening pain with coughing, will order an abdominal binder for him to try as well. Admission and Anticipated Discharge Date Admission Date: May 12, 2024 Supervising Physician Co-Signing Physician Notes 68-year-old male postoperative day 2 laparoscopic right hemicolectomy He is tolerating clears but has no return of bowel function yet Can switch to p.o. Tylenol Await more meaningful return of bowel function before advancing diet Lovenox for DVT prophylaxis Encourage ambulation and incentive spirometry Subjective Patient continues to have some post-operative discomfort overnight. States pain is more so when he coughs. Continues with mild nausea on and off throughout the evening, however denies any emesis. Was started on clears yesterday which he has tolerated so far. Denies passing gas or having a BM yet. Denies CP, SOB, or new onset fevers or chills Physical Exam Constitutional: WD/WN, vitals as above Respiratory: normal respiratory effort, lungs clear to auscultation Cardiovascular: RRR, no murmur, no edema Gastrointestinal (Abdomen): Abdomen soft but distended, appropriate tenderness to palpation over surgical sites. Surgical sites are c/d/i and well approximated, no overlying signs of infection. Psychiatric: A+Ox3, euthymic affect Results & Data Vital Signs (Past 12 Hours) Vital Signs Temp Pulse Resp BP Pulse Ox O2 Del Method 05/13/24 20:45 Room Air 05/13/24 20:42 37.0 C 93 H 18 112/70 97 Room Air PG Care Time/CCT Total # of Minutes Spent Total Time Spent with Patient: Total time spent is greater than 50% in coordination of care (as documented) at patient's floor/unit and/or counseling patient: Coding Level of Care Code 06188 Post Operative Follow-Up Diagnoses H/O right hemicolectomy Z90.49
[2024-05-14 07:11] LABS: Basophils # (auto) 0.01 K/uL (0.00-0.20); Basophils % (auto) 0.1 %; Eosinophils # (auto) 0.05 K/uL (0.00-0.50); Eosinophils % (auto) 0.7 %; Hematocrit (blood only) 28.4 % (42.0-52.0); Hemoglobin 9.9 g/dl (14.0-18.0); Immature Granulocytes # (auto) 0.26 K/uL (0.01-0.20); Immature Granulocytes % (auto) 3.4 %; Lymphocytes # (auto) 0.73 K/uL (1.20-3.40); Lymphocytes % (auto) 9.5 %; Mean Corpuscular Hemoglobin 37.8 pg (25.0-34.0); Mean Corpuscular Hgb Conc 34.9 g/dL (32.0-36.0); Mean Corpuscular Volume 108.4 fL (80.0-100.0); Monocytes # (auto) 0.71 K/uL (0.11-0.59); Monocytes % (auto) 9.3 %; Neutrophils # (auto) 5.89 K/uL (1.40-6.50); Platelet Count 174 K/uL (130-400); RDW Coefficient of Variation 13.1 % (11.5-14.5); RDW Standard Deviation 52.2 fL (36.4-46.3); Red Blood Count 2.62 M/uL (4.70-6.10); White Blood Count 7.65 K/ul (4.8-10.8)
[2024-05-14 07:28] LABS: BUN Creatinine Ratio 12.1 (10-20); Calcium 8.4 mg/dl (8.6-10.3); Potassium 3.7 mmol/L (3.5-5.1)
[2024-05-14] MEDS: LOSARTAN POTASSIUM 25 MG TAB PO SCH (07:57)
[2024-05-14] MEDS: ENOXAPARIN INJ 40 MG/0.4 ML SYR SQ SCH (07:58)
[2024-05-14] MEDS ORDERED: Nursing to Pharmacy Communication SCH (09:15)
[2024-05-14] MEDS: ACETAMINOPHEN 500 MG TAB PO SCH (13:50)
[2024-05-15 06:11] LABS: Basophils # (auto) 0.02 K/uL (0.00-0.20); Basophils % (auto) 0.2 %; Eosinophils # (auto) 0.12 K/uL (0.00-0.50); Eosinophils % (auto) 1.4 %; Hematocrit (blood only) 30.7 % (42.0-52.0); Hemoglobin 10.6 g/dl (14.0-18.0); Immature Granulocytes # (auto) 0.26 K/uL (0.01-0.20); Immature Granulocytes % (auto) 2.9 %; Lymphocytes % (auto) 14.7 %; Mean Corpuscular Hemoglobin 37.5 pg (25.0-34.0); Mean Corpuscular Hgb Conc 34.5 g/dL (32.0-36.0); Mean Corpuscular Volume 108.5 fL (80.0-100.0); Mean Platelet Volume 8.8 fL (9.4-12.4); Monocytes # (auto) 0.78 K/uL (0.11-0.59); Monocytes % (auto) 8.8 %; Neutrophils # (auto) 6.37 K/uL (1.40-6.50); Platelet Count 194 K/uL (130-400); RDW Coefficient of Variation 13.1 % (11.5-14.5); RDW Standard Deviation 52.4 fL (36.4-46.3); Red Blood Count 2.83 M/uL (4.70-6.10); White Blood Count 8.85 K/ul (4.8-10.8)
[2024-05-15 06:36] LABS: BUN Creatinine Ratio 11.7 (10-20); Creatinine Clr Calc Pharmacy 89.5 ml/min; Potassium 3.6 mmol/L (3.5-5.1)
--- NOTE | 2024-05-15 06:58 | Surgery Progress Note ---
Date of Service May 15, 2024 Assessment & Plan (1) H/O right hemicolectomy: Plan: Postoperative day #3 s/p laparoscopic right hemicolectomy. -Patient doing well, tolerating clears and has had a BM and passing gas overnight -Will plan to advance to full liquids today -OOB to chair and ambulation -Continue pain control -Lovenox for DVT ppx Admission and Anticipated Discharge Date Admission Date: May 12, 2024 Supervising Physician Co-Signing Physician Notes 68-year-old male postoperative day 3 laparoscopic right hemicolectomy He did have a bowel movement and has been advanced to full liquids which we will keep him on for today Will decrease his IV fluids and I can saline lock them if he is tolerating adequate p.o. Lovenox for DVT prophylaxis Encourage ambulation and incentive spirometry If he continues to have good return of bowel function he can be advanced to a low fiber diet tomorrow Subjective Patient seen and evaluated this morning, he is sitting up in the chair this morning and states he is starting to feel much better Still having some anticipated postop pain however is well controlled Has tolerated clears without issues of N/V. Patient also started passing gas and did have a BM overnight Physical Exam Constitutional: WD/WN, vitals as above Respiratory: normal respiratory effort, lungs clear to auscultation Cardiovascular: RRR, no murmur, no edema Gastrointestinal (Abdomen): Abdomen soft and distended. +Appropriate tenderness to palpation over surgical sites. Surgical sites are c/d/i and well approximated, no overlying signs of infection. Psychiatric: A+Ox3, euthymic affect Results & Data Vital Signs (Past 12 Hours) Vital Signs Temp Pulse Resp BP Pulse Ox O2 Del Method 05/14/24 23:19 Room Air 05/14/24 21:17 37.1 C 97 H 18 126/82 90 Room Air PG Care Time/CCT Total # of Minutes Spent Total Time Spent with Patient: Total time spent is greater than 50% in coordination of care (as documented) at patient's floor/unit and/or counseling patient: Coding Level of Care Code 06775 Post Operative Follow-Up Diagnoses H/O right hemicolectomy Z90.49
[2024-05-16 07:56] LABS: Basophils # (auto) 0.02 K/uL (0.00-0.20); Basophils % (auto) 0.2 %; Eosinophils # (auto) 0.04 K/uL (0.00-0.50); Eosinophils % (auto) 0.4 %; Hematocrit (blood only) 32.6 % (42.0-52.0); Hemoglobin 11.1 g/dl (14.0-18.0); Immature Granulocytes # (auto) 0.16 K/uL (0.01-0.20); Immature Granulocytes % (auto) 1.4 %; Lymphocytes # (auto) 0.78 K/uL (1.20-3.40); Mean Corpuscular Hemoglobin 36.6 pg (25.0-34.0); Mean Corpuscular Volume 107.6 fL (80.0-100.0); Mean Platelet Volume 8.8 fL (9.4-12.4); Monocytes # (auto) 1.09 K/uL (0.11-0.59); Monocytes % (auto) 9.7 %; Neutrophils # (auto) 9.13 K/uL (1.40-6.50); Neutrophils % (auto) 81.3 %; Platelet Count 244 K/uL (130-400); RDW Coefficient of Variation 13.1 % (11.5-14.5); RDW Standard Deviation 51.2 fL (36.4-46.3); Red Blood Count 3.03 M/uL (4.70-6.10); White Blood Count 11.22 K/ul (4.8-10.8)
--- NOTE | 2024-05-16 08:11 | Surgery Progress Note ---
Date of Service May 16, 2024 Assessment & Plan (1) H/O right hemicolectomy: Plan: Postoperative day #4 s/p laparoscopic right hemicolectomy. Bloating and small flatus, last bm 05/14 abd appears distended , instructed to ambulate and take PO liquids slow Will increase IV fluids to 80ml hr , HR last night 112 and low grade temp 100.2/99.1 WBC 11 (8), H/H stable . BMP pending Upper incision with bloody drainage , covered with gauze and tape -Continue pain control / incentive spirometer /ambulate -Lovenox for DVT ppx as above. pt states he is feeling much better than yesterday at this time. dg liquids. no nausea. +distension. wound looks good stay on liquids only. will monitor wbc/temp. hopefully full return of bowel fx soon. Admission and Anticipated Discharge Date Admission Date: May 12, 2024 Subjective Bloating, small amt flatus , last BM 05/14 +abd discomfort Review of Systems Constitutional: no chills Cardiovascular: no chest pain Gastrointestinal: + abdominal pain and + bloating; no naus ea and no vomiting Genitourinary: no dysuria Physical Exam Constitutional: cooperative and comfortable; no acute distress Respiratory: normal respiratory effort and able to speak in complete sentences; no respiratory distress Gastrointestinal (Abdomen): Inspection/Auscultation: + abdomen distended and + abdominal surgical incision (upper with bloody drainage ) Percussion/Palpation: + abdomen tender and + abdomen firm Results & Data Vital Signs (Past 12 Hours) Vital Signs Temp Pulse Pulse Resp BP BP Pulse Ox 05/15/24 22:05 99.1 F 05/15/24 20:34 100.2 F H 112 H 18 127/81 92 05/15/24 20:12 99.1 F 117 H 18 115/77 90 O2 Del Method 05/15/24 22:05 05/15/24 20:34 Room Air 05/15/24 20:12 Room Air Results CBC w Diff Results: RBC 3.03 M/uL (4.70-6.10) L 05/16/24 WBC 11.22 K/ul (4.8-10.8) H 05/16/24 Hgb 11.1 g/dl (14.0-18.0) L 05/16/24 Hct 32.6 % (42.0-52.0) L 05/16/24 MCV 107.6 fL (80.0-100.0) H 05/16/24 MCH 36.6 pg (25.0-34.0) H 05/16/24 MCHC 34.0 g/dL (32.0-36.0) 05/16/24 RDW Standard Deviation 51.2 fL (36.4-46.3) H 05/16/24 RDW Coefficient of Variation 13.1 % (11.5-14.5) 05/16/24 Plt Count 244 K/uL (130-400) 05/16/24 MPV 8.8 fL (9.4-12.4) L 05/16/24 Nucleated Red Blood Cells % (auto) 0.3 % 12/01 Nucleated RBC Absolute Count (auto) 0.02 K/uL (0.00-0.12) 0 12/02/23 Neutrophils (%) (Auto) 81.3 % 05/16/24 Lymphocytes (%) (Auto) 7.0 % 05/16/24 Monocytes # (Auto) 1.09 K/uL (0.11-0.59) H 05/16/24 Eosinophils # (Auto) 0.04 K/uL (0.00-0.50) 05/16/24 Immature Granulocyte % (Auto) 1.4 % 05/16/24 Neutrophils # (Auto) 9.13 K/uL (1.40-6.50) H 05/16/24 Lymphocytes # (Auto) 0.78 K/uL (1.20-3.40) L 05/16/24 Monocytes # (Auto) 1.09 K/uL (0.11-0.59) H 05/16/24 Eosinophils # (Auto) 0.04 K/uL (0.00-0.50) 05/16/24 Basophils # (Auto) 0.02 K/uL (0.00-0.20) 05/16/24 Immature Granulocyte # (Auto) 0.16 K/uL (0.01-0.20) 4 Hypersegmented Neutrophils 1+ 02/15/24 Polychromasia 1+ 03/25/24 Echinocytes 1+ 05/29/22 Anisocytosis Present 02/15/24 Macrocytosis Present 04/27/24 Tear Drop Cells 1+ 04/27/24 Dohle Bodies 1+ 01/12/23 PG Care Time/CCT Total # of Minutes Spent Total Time Spent with Patient: Total time spent is greater than 50% in coordination of care (as documented) at patient's floor/unit and/or counseling patient: Coding Level of Care Code 26059 Post Operative Follow-Up Diagnoses H/O right hemicolectomy Z90.49
[2024-05-16 08:14] LABS: BUN Creatinine Ratio 16.3 (10-20); Calcium 9.1 mg/dl (8.6-10.3); Creatinine Clr Calc Pharmacy 97.9 ml/min; Potassium 3.6 mmol/L (3.5-5.1)
[2024-05-16] MEDS: SODIUM CHLORIDE 0.9% 1,000 ML IV SCH (12:21)
[2024-05-17 08:54] LABS: Basophils # (auto) 0.03 K/uL (0.00-0.20); Basophils % (auto) 0.3 %; Eosinophils # (auto) 0.13 K/uL (0.00-0.50); Eosinophils % (auto) 1.4 %; Hemoglobin 9.9 g/dl (14.0-18.0); Immature Granulocytes % (auto) 1.1 %; Lymphocytes % (auto) 8.9 %; Mean Corpuscular Hemoglobin 36.1 pg (25.0-34.0); Mean Corpuscular Volume 109.5 fL (80.0-100.0); Mean Platelet Volume 8.7 fL (9.4-12.4); Monocytes # (auto) 0.98 K/uL (0.11-0.59); Monocytes % (auto) 10.9 %; Neutrophils # (auto) 6.95 K/uL (1.40-6.50); Neutrophils % (auto) 77.4 %; Platelet Count 248 K/uL (130-400); RDW Coefficient of Variation 13.2 % (11.5-14.5); RDW Standard Deviation 52.3 fL (36.4-46.3); Red Blood Count 2.74 M/uL (4.70-6.10); White Blood Count 8.99 K/ul (4.8-10.8)
[2024-05-17 09:03] LABS: BUN Creatinine Ratio 18.8 (10-20); Calcium 8.4 mg/dl (8.6-10.3); Potassium 3.8 mmol/L (3.5-5.1)
--- NOTE | 2024-05-17 09:06 | Surgery Progress Note ---
Date of Service May 17, 2024 Assessment & Plan (1) H/O right hemicolectomy: Plan: Postoperative day #5 s/p laparoscopic right hemicolectomy. Bloating however passing more flatus this AM , possible liquid stool vs urine early this AM incontinant abd appears distended , instructed to continue to ambulate WBC 8, VSS , afebrile Upper incision with bloody drainage , covered with gauze and tape -Continue pain control / incentive spirometer /ambulate -Lovenox for DVT ppx Will monitor H/H 04.04 as above. multiple loose bm's today wounds look good discussed his path report which was quite favorable still distended. stay on liquids for now Admission and Anticipated Discharge Date Admission Date: May 12, 2024 Subjective more flatus this am , thinks he may have had liquid stool last night vs urine incontinent on blankets +abd discomfort /bloating, mild nausea off and on , no emesis Review of Systems Constitutional: no fever and no chills Respiratory: no dyspnea Cardiovascular: no chest pain Gastrointestinal: + abdominal pain, + bloating and + nause a; no vomiting Genitourinary: no dysuria Integumentary: no rash Psychiatric: no confusion Physical Exam Constitutional: cooperative and comfortable; no acute distress Respiratory: normal respiratory effort and able to speak in complete sentences; no respiratory distress Gastrointestinal (Abdomen): Inspection/Auscultation: + abdomen distended and + abdominal surgical incision (upper with bloody drainage ) Percussion/Palpatio n: + abdomen tender and + abdomen firm Results & Data Vital Signs (Past 12 Hours) Vital Signs Temp Pulse Resp BP Pulse Ox O2 Del Method 05/17/24 07:08 98.1 F 89 16 123/82 94 Room Air Results CBC w Diff Results: RBC 2.74 M/uL (4.70-6.10) L 05/17/24 WBC 8.99 K/ul (4.8-10.8) 05/17/24 Hgb 9.9 g/dl (14.0-18.0) L 05/17/24 Hct 30.0 % (42.0-52.0) L 05/17/24 MCV 109.5 fL (80.0-100.0) H 05/17/24 MCH 36.1 pg (25.0-34.0) H 05/17/24 MCHC 33.0 g/dL (32.0-36.0) 05/17/24 RDW Standard Deviation 52.3 fL (36.4-46.3) H 05/17/24 RDW Coefficient of Variation 13.2 % (11.5-14.5) 05/17/24 Plt Count 248 K/uL (130-400) 05/17/24 MPV 8.7 fL (9.4-12.4) L 05/17/24 Nucleated Red Blood Cells % (auto) 0.3 % 12/01 Nucleated RBC Absolute Count (auto) 0.02 K/uL (0.00-0.12) 0 12/02/23 Neutrophils (%) (Auto) 77.4 % 05/17/24 Lymphocytes (%) (Auto) 8.9 % 05/17/24 Monocytes # (Auto) 0.98 K/uL (0.11-0.59) H 05/17/24 Eosinophils # (Auto) 0.13 K/uL (0.00-0.50) 05/17/24 Immature Granulocyte % (Auto) 1.1 % 05/17/24 Neutrophils # (Auto) 6.95 K/uL (1.40-6.50) H 05/17/24 Lymphocytes # (Auto) 0.80 K/uL (1.20-3.40) L 05/17/24 Monocytes # (Auto) 0.98 K/uL (0.11-0.59) H 05/17/24 Eosinophils # (Auto) 0.13 K/uL (0.00-0.50) 05/17/24 Basophils # (Auto) 0.03 K/uL (0.00-0.20) 05/17/24 Immature Granulocyte # (Auto) 0.10 K/uL (0.01-0.20) 4 Hypersegmented Neutrophils 1+ 02/15/24 Polychromasia 1+ 03/25/24 Echinocytes 1+ 05/29/22 Anisocytosis Present 02/15/24 Macrocytosis Present 04/27/24 Tear Drop Cells 1+ 04/27/24 Dohle Bodies 1+ 01/12/23 PG Care Time/CCT Total # of Minutes Spent Total Time Spent with Patient: Total time spent is greater than 50% in coordination of care (as documented) at patient's floor/unit and/or counseling patient: Coding Level of Care Code 39726 Post Operative Follow-Up Diagnoses H/O right hemicolectomy Z90.49
[2024-05-17] MEDS: ONDANSETRON INJ 2 MG/ML 2 ML VIAL IV PRN (16:34)
[2024-05-18 08:57] LABS: Basophils # (auto) 0.03 K/uL (0.00-0.20); Basophils % (auto) 0.4 %; Eosinophils # (auto) 0.12 K/uL (0.00-0.50); Eosinophils % (auto) 1.7 %; Hematocrit (blood only) 30.1 % (42.0-52.0); Hemoglobin 9.8 g/dl (14.0-18.0); Immature Granulocytes # (auto) 0.12 K/uL (0.01-0.20); Immature Granulocytes % (auto) 1.7 %; Lymphocytes % (auto) 12.7 %; Mean Corpuscular Hemoglobin 35.6 pg (25.0-34.0); Mean Corpuscular Hgb Conc 32.6 g/dL (32.0-36.0); Mean Corpuscular Volume 109.5 fL (80.0-100.0); Mean Platelet Volume 8.7 fL (9.4-12.4); Monocytes # (auto) 0.89 K/uL (0.11-0.59); Monocytes % (auto) 12.6 %; Neutrophils % (auto) 70.9 %; Platelet Count 249 K/uL (130-400); RDW Coefficient of Variation 13.1 % (11.5-14.5); Red Blood Count 2.75 M/uL (4.70-6.10); White Blood Count 7.06 K/ul (4.8-10.8)
--- NOTE | 2024-05-18 09:02 | Surgery Progress Note ---
Date of Service May 18, 2024 Assessment & Plan (1) H/O right hemicolectomy: Plan: Postoperative day #6 s/p laparoscopic right hemicolectomy. multiple BMs and Flatus abd soft , less bloating and distention Advanced diet to low fiber , stop IV fluids WBC 7, VSS , afebrile Upper incision with bloody drainage , covered with gauze and tape, left side incision some induration -Continue pain control / incentive spirometer /ambulate -Lovenox for DVT ppx H/H stable as above. multiple large bm's overnight. dg low fiber diet ok for d/c. instructions given Admission and Anticipated Discharge Date Admission Date: May 12, 2024 Subjective Multiple BMs yesterday this AM less bloating abd cramping/discomfort Review of Systems Constitutional: no fever and no chills Respiratory: no dyspnea Cardiovascular: no chest pain Gastrointestinal: + abdominal pain; no bloating, no nausea and no vomiting Genitourinary: no dysuria Integumentary: no rash Psychiatric: no confusion Physical Exam Constitutional: cooperative and comfortable; no acute distress Respiratory: normal respiratory effort and able to speak in complete sentences; no respiratory distress Gastrointestinal (Abdomen): Inspection/Auscultation: + abdominal surgical incision (upper with bloody drainage ); abdomen not distended Percussion/Palpation: + abdomen tender and abdomen soft; abdomen not firm Results & Data Vital Signs (Past 12 Hours) Vital Signs Temp Pulse Resp BP Pulse Ox O2 Del Method 05/18/24 07:47 98.1 F 84 20 128/63 97 Room Air 05/18/24 05:32 98.2 F 80 16 107/59 L 95 Room Air 05/17/24 21:30 Room Air Results CBC w Diff Results: RBC 2.75 M/uL (4.70-6.10) L 05/18/24 WBC 7.06 K/ul (4.8-10.8) 05/18/24 Hgb 9.8 g/dl (14.0-18.0) L 05/18/24 Hct 30.1 % (42.0-52.0) L 05/18/24 MCV 109.5 fL (80.0-100.0) H 05/18/24 MCH 35.6 pg (25.0-34.0) H 05/18/24 MCHC 32.6 g/dL (32.0-36.0) 05/18/24 RDW Standard Deviation 52.0 fL (36.4-46.3) H 05/18/24 RDW Coefficient of Variation 13.1 % (11.5-14.5) 05/18/24 Plt Count 249 K/uL (130-400) 05/18/24 MPV 8.7 fL (9.4-12.4) L 05/18/24 Nucleated Red Blood Cells % (auto) 0.3 % 12/01 Nucleated RBC Absolute Count (auto) 0.02 K/uL (0.00-0.12) 0 12/02/23 Neutrophils (%) (Auto) 70.9 % 05/18/24 Lymphocytes (%) (Auto) 12.7 % 05/18/24 Monocytes # (Auto) 0.89 K/uL (0.11-0.59) H 05/18/24 Eosinophils # (Auto) 0.12 K/uL (0.00-0.50) 05/18/24 Immature Granulocyte % (Auto) 1.7 % 05/18/24 Neutrophils # (Auto) 5.00 K/uL (1.40-6.50) 05/18/24 Lymphocytes # (Auto) 0.90 K/uL (1.20-3.40) L 05/18/24 Monocytes # (Auto) 0.89 K/uL (0.11-0.59) H 05/18/24 Eosinophils # (Auto) 0.12 K/uL (0.00-0.50) 05/18/24 Basophils # (Auto) 0.03 K/uL (0.00-0.20) 05/18/24 Immature Granulocyte # (Auto) 0.12 K/uL (0.01-0.20) 4 Hypersegmented Neutrophils 1+ 02/15/24 Polychromasia 1+ 03/25/24 Echinocytes 1+ 05/29/22 Anisocytosis Present 02/15/24 Macrocytosis Present 04/27/24 Tear Drop Cells 1+ 04/27/24 Dohle Bodies 1+ 01/12/23 PG Care Time/CCT Total # of Minutes Spent Total Time Spent with Patient: Total time spent is greater than 50% in coordination of care (as documented) at patient's floor/unit and/or counseling patient: Coding Level of Care Code 31691 Post Operative Follow-Up Diagnoses H/O right hemicolectomy Z90.49
[2024-05-18 09:20] LABS: Calcium 8.3 mg/dl (8.6-10.3); Creatinine Clr Calc Pharmacy 94.6 ml/min; Potassium 3.9 mmol/L (3.5-5.1)
[2024-05-18 11:32] VITALS: BP 120/70; PULSE 86; RESP 18; TEMP 99.3; O2SAT 95
== END 2024-05-18 14:41 | disposition home or self-care (01) | DRG 331 ==
LOC: ASU 05:39 → 3W 10:29

== ENCOUNTER 2024-07-08 10:27 | Inpatient (IN) ==
[2024-07-08 11:15] LABS: Hematocrit (blood only) 35.8 % (42.0-52.0); Hemoglobin 11.7 g/dl (14.0-18.0); Mean Corpuscular Hemoglobin 30.4 pg (25.0-34.0); Mean Corpuscular Hgb Conc 32.7 g/dL (32.0-36.0); Mean Platelet Volume 8.7 fL (9.4-12.4); Platelet Count 546 K/uL (130-400); RDW Coefficient of Variation 14.9 % (11.5-14.5); Red Blood Count 3.85 M/uL (4.70-6.10); White Blood Count 10.38 K/ul (4.8-10.8)
--- NOTE | 2024-07-08 11:15 | Emergency Department Note ---
Impression & Plan Abdominal fluid collection ADMIT ED Provider Note HPI: History obtained from patient. The patient is a 68-year-old gentleman who presents the emergency department with chief complaint of right flank pain and right back pain. Patient states that he had a hemicolectomy performed in March and he has had some mild discomfort in the area of his right lower back off to the right side since. Patient states this is in the area of his lower thoracic spine and slightly off to the right in the area of his lower ribs. Patient states he is also had some pain radiating across the right side of his abdomen. Patient states he has had diminished appetite and weight loss during this time, he states he has utilized physical therapy as well as oxycodone and cannot get relief of his right back/flank pain. On arrival here to the ED the patient is hemodynamically stable, he does appear to be in mild distress secondary to pain. ROS: - Per HPI Differential Diagnosis: Pulmonary embolism, rib fracture, pneumothorax, hemothorax, intra-abdominal abscess, intra-abdominal mass, small bowel obstruction, amongst other potential pathologies. *Outpatient medications and allergy history reviewed. 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 Lab work shows no leukocytosis, hemoglobin is stable at 11.7, platelet count is slightly high at 546. CMP does not show any evidence of any critical findings, CT imaging of the chest as well as CT imaging of the abdomen pelvis were obtained, there is no evidence of any pulmonary emboli on CT angiography of the chest, CT imaging of the abdomen pelvis with IV contrast does show evidence of a nonspecific intra-abdominal fluid collection concerning for possible an anastomotic leak from the patient surgery several months ago. This appears to be contained per the interpreting radiologist. Blood cultures were ordered, patient was given a dose of IV Zosyn. I discussed these findings via [place] text with the patient surgeon, Dr. Durbin, and he is in agreement for consultation for admission and definitive care. Patient was in agreement to this plan and the patient was placed for admission in stable condition. Consultants/Discussions held with other healthcare providers: -General Surgery, Dr. Durbin Disposition discussion held by myself with: -Patient and patient's at the bedside Diagnosis: 1. Intra-abdominal fluid collection, postoperative, acute 2. Abdominal pain, acute Disposition: Admission Kyle Pineda DO Emergency Medicine Past Med/Surg History Problem List (Updated 07/08/24 @ 18:56 by Kyle Pineda DO) Abdominal fluid collection (Acute) Back pain Abdominal pain Abdominal fluid collection Allergic rhinitis Hypercholesteremia Encounter for pre-operative examination Right-sided thoracic back pain H/O right hemicolectomy (05/12/24) Laparoscopic Right Hemicolectomy(Right) - [place] Durbin DO Polycythemia Constipation History of laparoscopic cholecystectomy Arthritis Elevated bilirubin Abdominal lymphadenopathy Erectile dysfunction Hypothyroidism Hypercholesteremia Hypertension Medical History (Updated 07/08/24 @ 18:56 by Kyle Pineda DO) Chronic anemia Hypercholesteremia Anxiety Myelofibrosis Colon cancer (03/2024) Erectile dysfunction Hypertension Polycythemia vera Dx 06/2023, w/myelofibrosis Follows with Dr. Valera Constipation History of prostate cancer Dx 2020, s/p prostatectomy Back problem Syncope Remote hx s/p unremarkable holter, no recent issues Male stress incontinence Osteoarthritis Acid reflux History of duodenal ulcer Remote hx in early Diverticular disease Tinnitus Hypothyroidism Myalgia chronic Surgical History History of colonoscopy [facility] (02/2024) Hx laparoscopic cholecystectomy 2022 History of robot-assisted laparoscopic radical prostatectomy Robotic laparoscopic radial retropubic prostatectomy, pelvic lymph node dissection (03/21/21): Grade view 2, MAC#3, ETT 7.5 at [facility] History of esophagogastroduodenoscopy (EGD) History of wisdom tooth extraction History of prostate biopsy Family History Brother Carotid artery disease Heart disease H/O cardiac surgery Mother Diabetes Stroke Father , 81yo Heart disease Cardiac stent Arthritis Aunt Diabetes Grandfather Heart disease Family/Other Hypertension Other No family history of adverse response to anesthesia Denies family history of Ovarian cancer Prostate cancer Breast cancer Colorectal cancer Social History (Updated 06/21/24 @ 11:23 by Kelly Fernández LPN) Smoking Status: Never smoker Second Hand Exposure: No; Do You Dip or Chew Tobacco: No; Hx Alcohol Use: No Hx Substance Use: No Preferred Language: Korean Communication Ability: Effective Visual Impairment: No Limitations Hearing Ability: Normal B2B Managed Service Sales Exec Required: No Beliefs That Will Affect Care: None marital status: Current Living Situation: Spouse current occupational status: employed and unemployed 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, 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 [employer] How many Children do You have: 4 Feels Safe at Home: Yes Diet: regular caffeine: No during the past year weight has: decreased > 10 lbs Dental Care, Regularly: Yes Seatbelt Use: always Sunscreen Use: Yes Assistive Devices: None Allergies Allergies Allergy/AdvReac Type Severity Reaction Status Date / Time atorvastatin AdvReac Unknown muscle Verified 07/08/24 14:06 weakness Home Meds Home Medications Medication Instructions Recorded Confirmed cholecalciferol (vitamin D3) 125 125 mcg PO QAM 03/26/21 07/08/24 mcg (5,000 unit) tablet (Vitamin D3) melatonin 5 mg chewable tablet 5 mg PO HS PRN Sleep 03/26/21 07/08/24 coQ10 (ubiquinol) 100 mg capsule 100 mg PO QAM 09/04/21 07/08/24 krill 350 mg-omega-3 90 mg-dha 24 1 cap PO QAM 09/04/21 07/08/24 mg-epa 50 [id number] capsule (MegaRed [place]-3 Krill Oil) famotidine 20 mg tablet 20 mg PO UD PRN Acid Reflux 09/04/22 07/08/24 aspirin 81 mg capsule 81 mg PO QAM 03/02/24 07/08/24 hydroxyurea 500 mg capsule 0 mg PO UD 03/02/24 07/08/24 meclizine 12.5 mg tablet 12.5 - 25 mg PO TID PRN dizziness 03/02/24 07/08/24 omeprazole 20 mg capsule,delayed 40 mg PO DAILY PRN gerd 03/02/24 07/08/24 release folic acid 1 mg tablet 1 mg PO DAILY 05/20/24 07/08/24 celecoxib 200 mg capsule (Celebrex) 200 mg PO BID 06/15/24 07/08/24 magnesium 250 mg tablet 250 mg PO DAILY 07/08/24 07/08/24 Previous Rx's Medication Instructions Recorded ondansetron 4 mg disintegrating 4 mg PO Q6H PRN nausea and 01/12/23 tablet vomiting #20 tabs sildenafil (pulm.hypertension) 20 20 mg PO ONCE PRN sexual activity 08/18/23 mg tablet #30 tabs levothyroxine 75 mcg tablet 75 mcg PO QAM #90 tabs 09/04/23 rosuvastatin 5 mg tablet 5 mg PO HS #90 tabs 06/30/24 telmisartan 20 mg tablet 20 mg PO QAM 90 days #90 tabs 06/30/24 Results & Data (ED) Vital Signs Vital Signs - 24 hr 07/08/24 10:36 07/08/24 11:01 07/08/24 11:13 Temperature 36.5 C Temperature Source Temporal Artery Scan Pulse Rate 105 H Pulse Rate [Apical] Pulse Rate from SpO2 Sensor Pulse Rhythm [Apical] Pulse Strength [Apical] Respiratory Rate 20 Respiratory Effort / Characteristics Non-Labored Spontaneous Respiratory Depth Normal Respiratory Pattern Blood Pressure 131/82 Blood Pressure [Left Arm] Blood Pressure Mean 98 Blood Pressure Mean [Left Arm] Blood Pressure Position [Left Arm] Pulse Oximetry 100 Oxygen Delivery Method Room Air Room Air Sepsis Recent Fever Within 48 Hours No Sepsis New/Unexplained Change in Mental Status N/A Sepsis Action Taken by Nursing No Action Required 07/08/24 11:30 07/08/24 11:30 07/08/24 11:30 Temperature Temperature Source Pulse Rate Pulse Rate [Apical] Pulse Rate from SpO2 Sensor Pulse Rhythm [Apical] Pulse Strength [Apical] Respiratory Rate Respiratory Effort / Characteristics Respiratory Depth Respiratory Pattern Blood Pressure 115/74 115/74 115/74 Blood Pressure [Left Arm] Blood Pressure Mean 83 83 83 Blood Pressure Mean [Left Arm] Blood Pressure Position [Left Arm] Pulse Oximetry Oxygen Delivery Method Sepsis Recent Fever Within 48 Hours Sepsis New/Unexplained Change in Mental Status Sepsis Action Taken by Nursing 07/08/24 11:30 07/08/24 11:45 07/08/24 12:06 Temperature Temperature Source Pulse Rate 74 78 79 Pulse Rate [Apical] Pulse Rate from SpO2 Sensor 75 77 72 Pulse Rhythm [Apical] Pulse Strength [Apical] Respiratory Rate 22 20 24 Respiratory Effort / Characteristics Respiratory Depth Respiratory Pattern Blood Pressure Blood Pressure [Left Arm] Blood Pressure Mean Blood Pressure Mean [Left Arm] Blood Pressure Position [Left Arm] Pulse Oximetry 100 100 100 Oxygen Delivery Method Sepsis Recent Fever Within 48 Hours Sepsis New/Unexplained Change in Mental Status Sepsis Action Taken by Nursing 07/08/24 12:12 07/08/24 12:13 07/08/24 12:24 Temperature Temperature Source Pulse Rate 79 71 68 Pulse Rate [Apical] Pulse Rate from SpO2 Sensor 77 72 Pulse Rhythm [Apical] Pulse Strength [Apical] Respiratory Rate 17 17 Respiratory Effort / Characteristics Respiratory Depth Respiratory Pattern Blood Pressure Blood Pressure [Left Arm] Blood Pressure Mean Blood Pressure Mean [Left Arm] Blood Pressure Position [Left Arm] Pulse Oximetry 100 100 Oxygen Delivery Method Sepsis Recent Fever Within 48 Hours Sepsis New/Unexplained Change in Mental Status Sepsis Action Taken by Nursing 07/08/24 12:30 07/08/24 12:31 07/08/24 12:36 Temperature Temperature Source Pulse Rate 74 Pulse Rate [Apical] 70 Pulse Rate from SpO2 Sensor 72 Pulse Rhythm [Apical] Regular Pulse Strength [Apical] Normal Respiratory Rate 16 Respiratory Effort / Characteristics Respiratory Depth Respiratory Pattern Blood Pressure 93/61 L Blood Pressure [Left Arm] Blood Pressure Mean 73 Blood Pressure Mean [Left Arm] Blood Pressure Position [Left Arm] Pulse Oximetry 100 100 Oxygen Delivery Method Room Air Sepsis Recent Fever Within 48 Hours Sepsis New/Unexplained Change in Mental Status Sepsis Action Taken by Nursing 07/08/24 12:42 07/08/24 12:51 07/08/24 13:00 Temperature Temperature Source Pulse Rate 68 72 81 Pulse Rate [Apical] Pulse Rate from SpO2 Sensor 68 65 81 Pulse Rhythm [Apical] Pulse Strength [Apical] Respiratory Rate 14 Respiratory Effort / Characteristics Respiratory Depth Respiratory Pattern Blood Pressure Blood Pressure [Left Arm] Blood Pressure Mean Blood Pressure Mean [Left Arm] Blood Pressure Position [Left Arm] Pulse Oximetry 100 99 99 Oxygen Delivery Method Sepsis Recent Fever Within 48 Hours Sepsis New/Unexplained Change in Mental Status Sepsis Action Taken by Nursing 07/08/24 13:00 07/08/24 13:15 07/08/24 13:18 Temperature Temperature Source Pulse Rate 85 89 Pulse Rate [Apical] Pulse Rate from SpO2 Sensor 86 88 Pulse Rhythm [Apical] Pulse Strength [Apical] Respiratory Rate 19 Respiratory Effort / Characteristics Respiratory Depth Respiratory Pattern Blood Pressure 88/66 L Blood Pressure [Left Arm] Blood Pressure Mean 70 Blood Pressure Mean [Left Arm] Blood Pressure Position [Left Arm] Pulse Oximetry 100 94 Oxygen Delivery Method Sepsis Recent Fever Within 48 Hours Sepsis New/Unexplained Change in Mental Status Sepsis Action Taken by Nursing 07/08/24 13:19 07/08/24 13:25 07/08/24 13:30 Temperature Temperature Source Pulse Rate Pulse Rate [Apical] 84 Pulse Rate from SpO2 Sensor Pulse Rhythm [Apical] Regular Pulse Strength [Apical] Normal Respiratory Rate 20 Respiratory Effort / Characteristics Non-Labored Spontaneous Respiratory Depth Normal Respiratory Pattern Regular Blood Pressure 115/84 107/80 Blood Pressure [Left Arm] 115/84 Blood Pressure Mean 91 96 Blood Pressure Mean [Left Arm] 94 Blood Pressure Position [Left Arm] Semi-fowlers Pulse Oximetry 100 Oxygen Delivery Method Room Air Sepsis Recent Fever Within 48 Hours Sepsis New/Unexplained Change in Mental Status Sepsis Action Taken by Nursing 07/08/24 13:30 07/08/24 13:45 07/08/24 14:00 Temperature Temperature Source Pulse Rate 80 Pulse Rate [Apical] Pulse Rate from SpO2 Sensor 80 Pulse Rhythm [Apical] Pulse Strength [Apical] Respiratory Rate Respiratory Effort / Characteristics Respiratory Depth Respiratory Pattern Blood Pressure 107/80 113/72 Blood Pressure [Left Arm] Blood Pressure Mean 96 77 Blood Pressure Mean [Left Arm] Blood Pressure Position [Left Arm] Pulse Oximetry 100 Oxygen Delivery Method Sepsis Recent Fever Within 48 Hours Sepsis New/Unexplained Change in Mental Status Sepsis Action Taken by Nursing 07/08/24 14:15 07/08/24 14:24 07/08/24 14:30 Temperature Temperature Source Pulse Rate 86 77 Pulse Rate [Apical] Pulse Rate from SpO2 Sensor 86 77 Pulse Rhythm [Apical] Pulse Strength [Apical] Respiratory Rate 19 19 Respiratory Effort / Characteristics Respiratory Depth Respiratory Pattern Blood Pressure 113/75 Blood Pressure [Left Arm] Blood Pressure Mean 89 Blood Pressure Mean [Left Arm] Blood Pressure Position [Left Arm] Pulse Oximetry 100 100 Oxygen Delivery Method Sepsis Recent Fever Within 48 Hours Sepsis New/Unexplained Change in Mental Status Sepsis Action Taken by Nursing 07/08/24 14:36 07/08/24 14:42 07/08/24 14:54 Temperature Temperature Source Pulse Rate 83 78 79 Pulse Rate [Apical] Pulse Rate from SpO2 Sensor 82 76 77 Pulse Rhythm [Apical] Pulse Strength [Apical] Respiratory Rate 24 20 18 Respiratory Effort / Characteristics Respiratory Depth Respiratory Pattern Blood Pressure Blood Pressure [Left Arm] Blood Pressure Mean Blood Pressure Mean [Left Arm] Blood Pressure Position [Left Arm] Pulse Oximetry 100 100 100 Oxygen Delivery Method Sepsis Recent Fever Within 48 Hours Sepsis New/Unexplained Change in Mental Status Sepsis Action Taken by Nursing 07/08/24 15:27 Temperature 36.8 C Temperature Source Oral Pulse Rate Pulse Rate [Apical] 67 Pulse Rate from SpO2 Sensor Pulse Rhythm [Apical] Regular Pulse Strength [Apical] Normal Respiratory Rate 18 Respiratory Effort / Characteristics Non-Labored Spontaneous Respiratory Depth Normal Respiratory Pattern Regular Blood Pressure Blood Pressure [Left Arm] 117/96 Blood Pressure Mean Blood Pressure Mean [Left Arm] 103 Blood Pressure Position [Left Arm] Semi-fowlers Pulse Oximetry 96 Oxygen Delivery Method Room Air Sepsis Recent Fever Within 48 Hours Sepsis New/Unexplained Change in Mental Status Sepsis Action Taken by Nursing Laboratory Data 07/08/24 11:00 07/08/24 11:00 Lab Results 07/08/24 Range/Units 11:00 WBC 10.38 (4.8-10.8) K/ul RBC 3.85 L (4.70-6.10) M/uL Hgb 11.7 L (14.0-18.0) g/dl Hct 35.8 L (42.0-52.0) % MCV 93.0 (80.0-100.0) fL MCH 30.4 (25.0-34.0) pg MCHC 32.7 (32.0-36.0) g/dL RDW Std Deviation 51.0 H (36.4-46.3) fL RDW Coeff of Jason 14.9 H (11.5-14.5) % Plt Count 546 H (130-400) K/uL MPV 8.7 L (9.4-12.4) fL Immature Gran % (Auto) 5.5 % Neut % (Auto) 72.6 % Lymph % (Auto) 14.1 % [place] % (Auto) 6.2 % Eos % (Auto) 0.9 % Baso % (Auto) 0.7 % Neut # (Auto) 7.55 H (1.40-6.50) K/uL Lymph # (Auto) 1.46 (1.20-3.40) K/uL [place] # (Auto) 0.64 H (0.11-0.59) K/uL Eos # (Auto) 0.09 (0.00-0.50) K/uL Baso # (Auto) 0.07 (0.00-0.20) K/uL Immature Gran # (Auto) 0.57 H (0.01-0.20) K/uL Polychromasia 1+ Tear Drop Cells 1+ Sodium 135 L (136-145) mmol/L Potassium 3.9 (3.5-5.1) mmol/L Chloride 100 (98-107) mmol/L Carbon Dioxide 22 (21-32) mmol/L Anion Gap 13 H (3-11) BUN 22 (6-23) mg/dl Creatinine 1.21 (0.6-1.4) mg/dl Est Cr Clr Drug Dosing 62.0 ml/min eGFR 66.03 BUN/Creatinine Ratio 18.2 (10-20) Glucose 123 H (70-99(Fasting)) mg/dl Calcium 10.0 (8.6-10.3) mg/dl Total Bilirubin 1.1 H (0.2-1.0) mg/dl AST 18 (13-39) U/L ALT 23 (7-52) U/L Alkaline Phosphatase 120 H (34-104) U/L Troponin I High Sens 5.7 (0-20) pg/ml Total Protein 8.4 H (6.0-8.3) gm/dl Albumin 3.7 (3.4-5.0) gm/dl Globulin 4.7 H (2.5-4.0) gm/dl Albumin/Globulin Ratio 0.8 L (0.9-2) Lipase 33 (11-82) U/L Administered Medications Fentanyl Citrate (Fentanyl Citrate Pf 100 Mcg/2 Ml Vial) 25 mcg IV Q5M PRN PRN Reason: PACU Use Only-Pain Stop: 07/08/24 23:24 Last Admin: 07/08/24 18:44 Dose: 25 mcg Documented By: BMW Discontinued Medications Hydromorphone HCl (Hydromorphone Inj 2 Mg/Ml Syr/Vial) 0.5 mg IV Q5M PRN PRN Reason: PACU Use Only-Pain Stop: 07/08/24 23:24 Last Admin: 07/08/24 18:35 Dose: 0.5 mg Documented By: Admin: 07/08/24 18:30 Dose: 0.5 mg Documented By: Admin: 07/08/24 18:25 Dose: 0.5 mg Documented By: Admin: 07/08/24 18:20 Dose: 0.5 mg Documented By: SCOTT Sodium Chloride (Nss) 500 mls @ 999 mls/hr IV .Q31M ONE Stop: 07/08/24 11:43 Last Infusion: 07/08/24 11:57 Dose: Infused Documented By: Admin: 07/08/24 11:16 Dose: 999 mls/hr Documented By: HUDSON Sodium Chloride (Nss) 1,000 mls @ 999 mls/hr IV .Q1H1M ONE Stop: 07/08/24 14:51 Last Admin: 07/08/24 14:02 Dose: 999 mls/hr Documented By: HUDSON Piperacillin Sod/Tazobactam Sod (Zosyn) 4.5 gm in 100 mls @ 200 mls/hr IV NOW ONE; Protocol Stop: 07/08/24 14:21 Last Infusion: 07/08/24 14:32 Dose: Infused Documented By: Admin: 07/08/24 14:01 Dose: 200 mls/hr Documented By: HUDSON Ioversol (Optiray 320 125ml) 116 ml IV ONCE ONE Stop: 07/08/24 12:04 Last Admin: 07/08/24 11:57 Dose: 116 ml Documented By: ANGELITA Morphine Sulfate (Morphine Sulfate 4 Mg/Ml 1 Ml Carp\Vial) 4 mg IV NOW STA Stop: 07/08/24 11:14 Last Admin: 07/08/24 11:16 Dose: 4 mg Documented By: HUDSON Morphine Sulfate (Morphine Sulfate 4 Mg/Ml 1 Ml Carp\Vial) 4 mg IV NOW STA Stop: 07/08/24 13:52 Last Admin: 07/08/24 14:02 Dose: 4 mg Documented By: HUDSON Ondansetron HCl (Ondansetron Inj 2 Mg/Ml 2 Ml Vial) 4 mg IV NOW STA Stop: 07/08/24 11:14 Last Admin: 07/08/24 11:16 Dose: 4 mg Documented By: N Imaging Data Radiologist's Impression: Abdomen/Pelvis CT 07/08/24 11:12 CT abd pelvis IV con only CLINICAL HISTORY: R flank pain TECHNIQUE: Helical axial images of the abdomen and pelvis were obtained and displayed. Automated dose lowering techniques and/or adjustment according to patient size were utilized for this exam. This exam was performed with intravenous contrast. COMPARISON: Comparison is made to CT abdomen pelvis 04/08/2024 FINDINGS: Lower chest: For findings above the diaphragm, please see CT chest performed same day. Liver: Unremarkable. No focal lesions are seen. Gallbladder and biliary tree: Patient is status post cholecystectomy. No intra- or extrahepatic biliary ductal dilation. Pancreas: Unremarkable, no focal lesions. Spleen: Unremarkable. Adrenals: Unremarkable. Kidneys and ureters: Unremarkable. Bladder: Unremarkable. Reproductive organs: Unremarkable. Bowel: Diverticulosis is seen without evidence of diverticulitis. Post surgical changes of right hemicolectomy. Lymph nodes Retroperitoneal: Subcentimeter lymph nodes are noted. Pelvic: Unremarkable. Mesenteric: Subcentimeter lymph nodes are noted. Is her most prominent at the inferior aspect of the large collection. Peritoneum: There is an 18 cm lesion in the right upper quadrant which is adjacent to the liver and large bowel. It contains layering fat fluid. There is mild surrounding fat stranding. No felipa pneumoperitoneum is seen. Vessels: Atherosclerotic calcifications are seen. Abdominal wall: Unremarkable. Bones: Degenerative changes in the visualized spine. IMPRESSION: Interval development of a large fat and fluid collection in the right hemiabdomen. Given history of recent right hemicolectomy, this may represent an anastomotic leak which is contained. Superinfection cannot be excluded given surrounding fat stranding and mesenteric lymph nodes. ACT 112: Negative or not required by law. Electronically signed by: Joao Abdi M.D. 07/08/2024 1:05 PM Chest CTA 07/08/24 11:12 CT angio chest PE protocol CT DOSE: 2020.64 mGy.cm HISTORY: 68 years-old Male with PE, R lower rib pain. Acute shortness breath with right-sided rib pain TECHNIQUE: Multiple CTA images of the chest were obtained after the intravenous administration of 116 ml Optiray. Coronal and sagittal MIPS were obtained from the axial data set and were submitted for review. All measurements were obtained according to NASCET criteria. A dose lowering technique was utilized adhering to the principles of ALARA. COMPARISON: Chest CT 04/08/2024 FINDINGS: CTA: Heart is normal in size without pericardial effusion. Moderate coronary artery calcifications. Atherosclerosis of the aorta without aneurysm or dissection. No pulmonary emboli. CT CHEST: Unremarkable thyroid. No lymphadenopathy. No pneumothorax, pleural effusion, or overt pulmonary edema. Linear right basilar predominant opacities suggestive of atelectasis. Central airways appear patent. Abdomen and pelvis dictated separately. Cholecystectomy. There is a large thick- walled peripherally enhancing lesion/collection within the right abdomen containing fluid and intralesional fat. Mild splenomegaly. No acute fracture. IMPRESSION: 1. No pulmonary emboli identified. 2. Right hemidiaphragmatic elevation with right basilar atelectasis. 3. Please refer to the same day CT abdomen and pelvis for discussion of the large fat-containing lesion/collection. ACT 112: Negative or not required by law. The above report was generated using voice recognition software. It may contain grammatical, syntax or spelling errors. Electronically signed by: Robert Adams M.D. 07/08/2024 12:40 PM Discharge Plan Visit Data Chief Complaint: Abdominal Pain Stated Complaint: SEVERE BACK/RT ABD PAIN ED Provider: Kyle Pineda Discharge Problem: Abdominal fluid collection Patient Disposition: Admitted As Inpatient Discharge Instructions Interventions: ED Discharge Assessment Last Done: 07/08/24 14:55
[2024-07-08] MEDS: SODIUM CHLORIDE 0.9% 500 ML IV ONE (11:16)
[2024-07-08] MEDS: MoRPHine SULFATE 4 MG/ML 1 ML CARP\\VIAL IV STA ×2 (11:16→14:02)
[2024-07-08] MEDS: ONDANSETRON INJ 2 MG/ML 2 ML VIAL IV STA (11:16)
[2024-07-08 11:31] LABS: Basophils # (auto) 0.07 K/uL (0.00-0.20); Basophils % (auto) 0.7 %; Eosinophils # (auto) 0.09 K/uL (0.00-0.50); Eosinophils % (auto) 0.9 %; Immature Granulocytes # (auto) 0.57 K/uL (0.01-0.20); Immature Granulocytes % (auto) 5.5 %; Lymphocytes # (auto) 1.46 K/uL (1.20-3.40); Lymphocytes % (auto) 14.1 %; Monocytes # (auto) 0.64 K/uL (0.11-0.59); Monocytes % (auto) 6.2 %; Neutrophils # (auto) 7.55 K/uL (1.40-6.50); Neutrophils % (auto) 72.6 %; Polychromasia 1+; Tear Drop Cells 1+
[2024-07-08 11:37] LABS: Albumin Globulin Ratio 0.8 (0.9-2); Albumin Level 3.7 gm/dl (3.4-5.0); BUN Creatinine Ratio 18.2 (10-20); Bilirubin,Total 1.1 mg/dl (0.2-1.0); Globulin 4.7 gm/dl (2.5-4.0); Potassium 3.9 mmol/L (3.5-5.1); Total Protein 8.4 gm/dl (6.0-8.3)
[2024-07-08 11:43] LABS: Troponin I High Sensitivity 5.7 pg/ml (0-20)
[2024-07-08] MEDS: OPTIRAY 320 125ml IV ONE (11:57)
--- NOTE | 2024-07-08 12:43 | CT Scan Report ---
CT angio chest PE protocol CT DOSE: 2020.64 mGy.cm HISTORY: 68 years-old Male with PE, R lower rib pain. Acute shortness breath with right-sided rib p ain TECHNIQUE: Multiple CTA images of the chest were obtained after the intravenous administration of 116 ml Optiray. Coronal and sagittal MIPS were obtained from the axial data set and were submitted for review. All measurements were obtained according to NASCET criteria. A dose lowering technique was u tilized adhering to the principles of ALARA. COMPARISON: Chest CT 04/08/2024 FINDINGS: CTA: Heart is normal in size without pericardial effusion. Moderate coronary artery calcifications. Athero sclerosis of the aorta without aneurysm or dissection. No pulmonary emboli. CT CHEST: Unremarkable thyroid. No lymphadenopathy. No pneumothorax, pleural effusion, or overt pulmonary edema . Linear right basilar predominant opacities suggestive of atelectasis. Central airways appear patent . Abdomen and pelvis dictated separately. Cholecystectomy. There is a large thick-walled peripherally e nhancing lesion/collection within the right abdomen containing fluid and intralesional fat. Mild sple nomegaly. No acute fracture. IMPRESSION: 1. No pulmonary emboli identified. 2. Right hemidiaphragmatic elevation with right basilar atelectasis. 3. Please refer to the same day CT abdomen and pelvis for discussion of the large fat-containing lesi on/collection. ACT 112: Negative or not required by law. The above report was generated using voice recognition software. It may contain grammatical, syntax o r spelling errors. Electronically signed by: Robert Adams M.D. 07/08/2024 12:40 PM
--- NOTE | 2024-07-08 13:07 | CT Scan Report ---
CT abd pelvis IV con only CLINICAL HISTORY: R flank pain TECHNIQUE: Helical axial images of the abdomen and pelvis were obtained and displayed. Automated dose lowering techniques and/or adjustment according to patient size were utilized for this exam. This e xam was performed with intravenous contrast. COMPARISON: Comparison is made to CT abdomen pelvis 04/08/2024 FINDINGS: Lower chest: For findings above the diaphragm, please see CT chest performed same day. Liver: Unremarkable. No focal lesions are seen. Gallbladder and biliary tree: Patient is status post cholecystectomy. No intra- or extrahepatic bilia ry ductal dilation. Pancreas: Unremarkable, no focal lesions. Spleen: Unremarkable. Adrenals: Unremarkable. Kidneys and ureters: Unremarkable. Bladder: Unremarkable. Reproductive organs: Unremarkable. Bowel: Diverticulosis is seen without evidence of diverticulitis. Post surgical changes of right norma colectomy. Lymph nodes Retroperitoneal: Subcentimeter lymph nodes are noted. Pelvic: Unremarkable. Mesenteric: Subcentimeter lymph nodes are noted. Is her most prominent at the inferior aspect of the large collection. Peritoneum: There is an 18 cm lesion in the right upper quadrant which is adjacent to the liver and l arge bowel. It contains layering fat fluid. There is mild surrounding fat stranding. No felipa pneumop eritoneum is seen. Vessels: Atherosclerotic calcifications are seen. Abdominal wall: Unremarkable. Bones: Degenerative changes in the visualized spine. IMPRESSION: Interval development of a large fat and fluid collection in the right hemiabdomen. Given history of r ecent right hemicolectomy, this may represent an anastomotic leak which is contained. Superinfection cannot be excluded given surrounding fat stranding and mesenteric lymph nodes. ACT 112: Negative or not required by law. Electronically signed by: Joao Abdi M.D. 07/08/2024 1:05 PM
[2024-07-08] MEDS: PIPERACILLIN/TAZOBACTAM 4.5 GM/100 ML BAG IV ONE (14:01)
[2024-07-08] MEDS: SODIUM CHLORIDE 0.9% 1,000 ML IV ONE (14:02)
--- NOTE | 2024-07-08 14:47 | Anesthesiology Consultation ---
Date of Service July 08, 2024 Assessment & Plan (1) Encounter for pre-operative examination: Chart Review Chart Review: Acceptable Risk for Surgery (urgent) History Surgery Operation Date: 07/08/24 16:25 Proposed Procedures p Exploratory Laparotomy - Camden Durbin DO Height/Weight Height: 5 ft 10 in Weight: 84.1 kg Allergies Allergy/AdvReac Type Severity Reaction Status Date / Time atorvastatin AdvReac Unknown muscle Verified 07/08/24 14:06 weakness Medications Home Medications Medication Instructions Recorded Confirmed Last Taken cholecalciferol (vitamin D3) 125 125 mcg PO QAM 03/26/21 07/08/24 07/07/24 mcg (5,000 unit) tablet (Vitamin D3) melatonin 5 mg chewable tablet 5 mg PO HS PRN Sleep 03/26/21 07/08/24 05/10/24 21:00 coQ10 (ubiquinol) 100 mg capsule 100 mg PO QAM 09/04/21 07/08/24 07/07/24 krill 350 mg-omega-3 90 mg-dha 24 1 cap PO QAM 09/04/21 07/08/24 07/07/24 mg-epa 50 bi-[id number]-[id number] capsule (MegaRed [place]-3 Krill Oil) famotidine 20 mg tablet 20 mg PO UD PRN Acid Reflux 09/04/22 07/08/24 2 Months Ago ~11/12/22 ondansetron 4 mg disintegrating 4 mg PO Q6H PRN nausea and 01/12/23 07/08/24 Unknown tablet vomiting #20 tabs sildenafil (pulm.hypertension) 20 20 mg PO ONCE PRN sexual activity 08/18/23 07/08/24 03/11/24 03:15 mg tablet #30 tabs levothyroxine 75 mcg tablet 75 mcg PO QAM #90 tabs 09/04/23 07/08/24 07/07/24 aspirin 81 mg capsule 81 mg PO QAM 03/02/24 07/08/24 07/07/24 hydroxyurea 500 mg capsule 0 mg PO UD 03/02/24 07/08/24 05/11/24 06:30 meclizine 12.5 mg tablet 12.5 - 25 mg PO TID PRN dizziness 03/02/24 07/08/24 Unknown omeprazole 20 mg capsule,delayed 40 mg PO DAILY PRN gerd 03/02/24 07/08/24 Unknown release folic acid 1 mg tablet 1 mg PO DAILY 05/20/24 07/08/24 07/07/24 celecoxib 200 mg capsule (Celebrex) 200 mg PO BID 06/15/24 07/08/24 07/07/24 rosuvastatin 5 mg tablet 5 mg PO HS #90 tabs 06/30/24 07/08/24 07/07/24 telmisartan 20 mg tablet 20 mg PO QAM 90 days #90 tabs 06/30/24 07/08/24 07/07/24 magnesium 250 mg tablet 250 mg PO DAILY 07/08/24 07/08/24 07/07/24 Active Medications Generic Name Dose Route Start Last Admin Trade Name Freq PRN Reason Stop Dose Admin Sodium Chloride 1,000 mls @ 999 mls/hr 07/08/24 13:51 07/08/24 14:02 Nss IV 07/08/24 14:51 999 mls/hr .Q1H1M ONE Administration Past Medical History Medical History (Updated 07/08/24 @ 14:47 by Camden Durbin DO) Chronic anemia Hypercholesteremia Anxiety Myelofibrosis Colon cancer (03/2024) Erectile dysfunction Hypertension Polycythemia vera Dx 06/2023, w/myelofibrosis Follows with Dr. Valera Constipation History of prostate cancer Dx 2020, s/p prostatectomy Back problem Syncope Remote hx s/p unremarkable holter, no recent issues Male stress incontinence Osteoarthritis Acid reflux History of duodenal ulcer Remote hx in early Diverticular disease Tinnitus Hypothyroidism Myalgia chronic Past Family History Family History Brother Carotid artery disease Heart disease H/O cardiac surgery Mother Diabetes Stroke Father , 81yo Heart disease Cardiac stent Arthritis Aunt Diabetes Grandfather Heart disease Family/Other Hypertension Other No family history of adverse response to anesthesia Denies family history of Ovarian cancer Prostate cancer Breast cancer Colorectal cancer Past Surgical History Surgical History History of colonoscopy [facility] (02/2024) Hx laparoscopic cholecystectomy 2022 History of robot-assisted laparoscopic radical prostatectomy Robotic laparoscopic radial retropubic prostatectomy, pelvic lymph node dissection (03/21/21): Grade view 2, MAC#3, ETT 7.5 at [facility] History of esophagogastroduodenoscopy (EGD) History of wisdom tooth extraction History of prostate biopsy Social History Smoking Status: Never smoker Do You Dip or Chew Tobacco: No Hx Alcohol Use: No alcohol intake frequency: other Hx Substance Use: No substance use type: does not use Physical Exam Vital Signs Last Vital Signs Temp 36.5 C 07/08/24 10:36 Pulse 77 07/08/24 14:24 Resp 19 07/08/24 14:24 BP 113/72 07/08/24 14:00 Pulse Ox 100 07/08/24 14:24 O2 Del Method Room Air 07/08/24 13:25 Testing Laboratory Results 07/08/24 11:00 07/08/24 11:00 Electrocardiogram Date: 07/08/24 Findings: + NSR @ (83) Echocardiogram stress echo from 2018 normal function, no ischemia
--- NOTE | 2024-07-08 14:49 | History & Physical Report ---
Date of Service July 08, 2024 Assessment & Plan (1) H/O right hemicolectomy: Plan: Clearly large fluid collection seen on CT scan is the patient's issue. I discussed this case with Dr. Adbi as well as Dr. Adams.... Etiology unclear. The obvious concern is a subclinical leak resulting in a contained perforation. While the patient is not septic he is in reasonable discomfort. We have no availability of interventional radiology currently and I doubt we w ould be able to aspirate the debris anyway. I talked with the patient and his . My recommendation is we proceed with an exploratory laparotomy abdominal washout and surgery as needed. He is fully aware that if there is an issue with the anastomosis he would likely require a temporary stoma. We discussed risks which include bleeding, infection, injury to another organ, DVT, PE, AL, CVA etc. I have answered all their questions. They agree with the plan. Will proceed ALEXA with exploratory laparotomy abdominal washout and surgery as needed. (2) Right-sided thoracic back pain: (3) Abdominal fluid collection: History of Present Illness Primary Care Provider: Stephane Fiore, DO 68-year-old male here referred by myself from the office earlier today for right upper quadrant pain as well as back pain. He is 8 weeks status post laparoscopic right hemicolectomy for colon cancer. He had an essentially uncomplicated course. He denies nausea or vomiting. His bowels have been moving. He is afebrile. His white count is currently normal. His only symptoms really have been pain. CT scan reveals a large right sided fluid collection with internal debris. Allergies Allergy/AdvReac Type Severity Reaction Status Date / Time atorvastatin AdvReac Unknown muscle Verified 07/08/24 14:06 weakness Home Medications Medication Instructions Recorded Confirmed Type cholecalciferol (vitamin D3) 125 125 mcg PO QAM 03/26/21 07/08/24 History mcg (5,000 unit) tablet (Vitamin D3) melatonin 5 mg chewable tablet 5 mg PO HS PRN Sleep 03/26/21 07/08/24 History coQ10 (ubiquinol) 100 mg capsule 100 mg PO QAM 09/04/21 07/08/24 History krill 350 mg-omega-3 90 mg-dha 24 1 cap PO QAM 09/04/21 07/08/24 History mg-epa 50 mi-bylihjx-vxpws capsule (MegaRed [place]-3 Krill Oil) famotidine 20 mg tablet 20 mg PO UD PRN Acid Reflux 09/04/22 07/08/24 History ondansetron 4 mg disintegrating 4 mg PO Q6H PRN nausea and 01/12/23 07/08/24 Rx tablet vomiting #20 tabs sildenafil (pulm.hypertension) 20 20 mg PO ONCE PRN sexual activity 08/18/23 07/08/24 Rx mg tablet #30 tabs levothyroxine 75 mcg tablet 75 mcg PO QAM #90 tabs 09/04/23 07/08/24 Rx aspirin 81 mg capsule 81 mg PO QAM 03/02/24 07/08/24 History hydroxyurea 500 mg capsule 0 mg PO UD 03/02/24 07/08/24 History meclizine 12.5 mg tablet 12.5 - 25 mg PO TID PRN dizziness 03/02/24 07/08/24 History omeprazole 20 mg capsule,delayed 40 mg PO DAILY PRN gerd 03/02/24 07/08/24 History release folic acid 1 mg tablet 1 mg PO DAILY 05/20/24 07/08/24 History celecoxib 200 mg capsule (Celebrex) 200 mg PO BID 06/15/24 07/08/24 History rosuvastatin 5 mg tablet 5 mg PO HS #90 tabs 06/30/24 07/08/24 Rx telmisartan 20 mg tablet 20 mg PO QAM 90 days #90 tabs 06/30/24 07/08/24 Rx magnesium 250 mg tablet 250 mg PO DAILY 07/08/24 07/08/24 History Past Med/Surg History Problem List (Updated 07/08/24 @ 14:47 by Camden Durbin DO) Abdominal fluid collection Allergic rhinitis Hypercholesteremia Encounter for pre-operative examination Right-sided thoracic back pain H/O right hemicolectomy (05/12/24) Laparoscopic Right Hemicolectomy(Right) - Camden Durbin DO Polycythemia Constipation History of laparoscopic cholecystectomy Arthritis Elevated bilirubin Abdominal lymphadenopathy Erectile dysfunction Hypothyroidism Hypercholesteremia Hypertension Medical History (Updated 07/08/24 @ 14:47 by Camden Durbin DO) Chronic anemia Hypercholesteremia Anxiety Myelofibrosis Colon cancer (03/2024) Erectile dysfunction Hypertension Polycythemia vera Dx 06/2023, w/myelofibrosis Follows with Dr. Valera Constipation History of prostate cancer Dx 2020, s/p prostatectomy Back problem Syncope Remote hx s/p unremarkable holter, no recent issues Male stress incontinence Osteoarthritis Acid reflux History of duodenal ulcer Remote hx in early Diverticular disease Tinnitus Hypothyroidism Myalgia chronic Surgical History (Updated 05/28/24 @ 00:08 by Maryellen Moore) History of colonoscopy [facility] (02/2024) Hx laparoscopic cholecystectomy 2022 History of robot-assisted laparoscopic radical prostatectomy Robotic laparoscopic radial retropubic prostatectomy, pelvic lymph node dissection (03/21/21): Grade view 2, MAC#3, ETT 7.5 at [facility] History of esophagogastroduodenoscopy (EGD) History of wisdom tooth extraction History of prostate biopsy Family History Brother Carotid artery disease Heart disease Mother Diabetes Stroke Father Heart disease Arthritis Aunt Diabetes Grandfather Heart disease Family/Other Hypertension Other No family history of adverse response to anesthesia Denies family history of Ovarian cancer Prostate cancer Breast cancer Colorectal cancer Social History (Updated 06/21/24 @ 11:23 by Kelly Fernández LPN) Smoking Status: Never smoker Second Hand Exposure: No; Do You Dip or Chew Tobacco: No; Hx Alcohol Use: No Hx Substance Use: No Preferred Language: Turkmen Communication Ability: Effective Visual Impairment: No Limitations Hearing Ability: Normal Sample Coordinator Required: No Beliefs That Will Affect Care: None marital status: Current Living Situation: Spouse current occupational status: employed and unemployed 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, 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 [employer] How many Children do You have: 4 Feels Safe at Home: Yes Diet: regular caffeine: No during the past year weight has: decreased > 10 lbs Dental Care, Regularly: Yes Seatbelt Use: always Sunscreen Use: Yes Assistive Devices: None Review of Systems All systems reviewed & are unremarkable except as noted in HPI & below Physical Exam Constitutional: WD/WN, vitals as above no acute distress and not ill appearing Eyes: PERRL, conjunctivae normal, anicteric sclerae EOM intact bilaterally ENMT: external ear and nose normal, oropharynx normal Ears: no hearing impairment Neck: trachea midline, no thyromegaly Respiratory: normal respiratory effort; no respiratory distress and does not use accessory muscles Cardiovascular: Rate/Rhythm: regular rate and regular rhythm Gastrointestinal (Abdomen): Soft. Positive right upper quadrant tenderness. Positive right sided abdominal fullness Skin: no rashes, warm and dry Psychiatric: Orientation: alert, oriented x 3 and cooperative Results & Data Vital Signs (Past 12 Hours) Vital Signs Temp Pulse Pulse Resp BP BP Pulse Ox 07/08/24 14:24 77 19 100 07/08/24 14:15 86 19 100 07/08/24 14:00 113/72 07/08/24 13:45 80 100 07/08/24 13:30 107/80 07/08/24 13:30 107/80 07/08/24 13:25 84 20 115/84 100 07/08/24 13:19 115/84 07/08/24 13:18 89 19 94 07/08/24 13:15 85 100 07/08/24 13:00 88/66 L 07/08/24 13:00 81 99 07/08/24 12:51 72 14 99 07/08/24 12:42 68 100 07/08/24 12:36 74 16 100 07/08/24 12:31 93/61 L 07/08/24 12:30 70 100 07/08/24 12:24 68 17 100 07/08/24 12:13 71 07/08/24 12:12 79 17 100 07/08/24 12:06 79 24 100 07/08/24 11:45 78 20 100 07/08/24 11:30 74 22 100 07/08/24 11:30 115/74 07/08/24 11:30 115/74 07/08/24 11:30 115/74 07/08/24 11:13 07/08/24 10:36 36.5 C 105 H 20 131/82 100 O2 Del Method 07/08/24 14:24 07/08/24 14:15 07/08/24 14:00 07/08/24 13:45 07/08/24 13:30 07/08/24 13:30 07/08/24 13:25 Room Air 07/08/24 13:19 07/08/24 13:18 07/08/24 13:15 07/08/24 13:00 07/08/24 13:00 07/08/24 12:51 07/08/24 12:42 07/08/24 12:36 07/08/24 12:31 07/08/24 12:30 Room Air 07/08/24 12:24 07/08/24 12:13 07/08/24 12:12 07/08/24 12:06 07/08/24 11:45 07/08/24 11:30 07/08/24 11:30 07/08/24 11:30 07/08/24 11:30 07/08/24 11:13 Room Air 07/08/24 10:36 Room Air
[2024-07-08] MEDS ORDERED: ROCURONIUM BROMIDE 10 MG/ML 5 ML VIAL IV ONE ×2 (14:51→16:49)
[2024-07-08] MEDS ORDERED: ONDANSETRON INJ 2 MG/ML 2 ML VIAL ONE (14:51)
[2024-07-08] MEDS ORDERED: LIDOCAINE 2% 2 ML VIAL/AMP(20MG/ML) INFIL ONE (14:51)
[2024-07-08] MEDS ORDERED: DEXAMETHASONE SOD INJ 4 MG/ML VIAL ONE (14:51)
[2024-07-08] MEDS ORDERED: PROPOFOL IV EMULSION 10 MG/ML 20 ML VIAL IV ONE (14:51)
[2024-07-08] MEDS ORDERED: KETAMINE HCL 10MG/ML SYR ONE (14:52)
[2024-07-08] MEDS ORDERED: GLYCOPYRROLATE 0.2 MG/ML VIAL ONE (14:52)
[2024-07-08] MEDS ORDERED: MIDAZOLAM HCL 1 MG/ML 2ML VIAL ONE (14:52)
[2024-07-08] MEDS ORDERED: fentaNYL citrate PF 100 MCG/2 ML VIAL ONE ×2 (14:52→17:29)
[2024-07-08] MEDS ORDERED: ePHEDrine sulfate 50 MG/ML AMP IV PRN (15:23)
[2024-07-08] MEDS ORDERED: ONDANSETRON INJ 2 MG/ML 2 ML VIAL IV PRN (15:23)
[2024-07-08] MEDS ORDERED: ATROPINE SULFATE 0.1 MG/ML 10ML SYR IV PRN (15:23)
[2024-07-08] MEDS ORDERED: PHENYLEPHRINE 100MCG/ML 5ML SYR ONE (15:55)
[2024-07-08] MEDS ORDERED: PHENYLEPHRINE HCL 10 MG/ML VIAL ONE (16:09)
[2024-07-08] MEDS ORDERED: SUGAMMADEX SODIUM 200 MG/2 ML VIAL IV ONE ×2 (17:40→17:43)
--- NOTE | 2024-07-08 18:09 | Operative Report ---
PG Post Operative Report Pre & Post Diagnosis Operation Date: 07/08/24 16:25 Pre-Op Diagnosis: Abdominal Fluid Collection, History of Right Hemicolectomy Post-Op Diagnosis: Abdominal mass/fluid I identified the patient and participated in the time-out.: Yes Procedure Operation Date: 07/08/24 16:25 Actual Procedures p Exploratory Laparotomy(Not Applicable) - Camden Durbin DO Surgeon Camden Durbin DO Molasses Feed Mixer rose marie Comer Estimated Blood Loss 10 Findings Consistent with Post-Op Diagnosis Specimens none Description of Procedure After informed consent was obtained the patient was taken to the operating room and placed in supine position. After successful intubation a Rasmussen catheter was placed sterilely. An orogastric tube was also placed. The abdomen was shaved and sterilely prepped and draped in usual fashion. I began with an upper midline incision down and around the umbilicus using a 10 blade scalpel. This was carried down through the soft tissue using cautery. The anterior fascia was opened using cautery. Peritoneum was elevated with hemostats and incised under direct vision using a Metzenbaum scissor. A finger sweep was performed and the incision was opened to both poles using cautery. Once in the abdomen surprisingly the abdomen looked completely pristine. The serosal surfaces were smooth. There was no fluid foul odor or sign of infection. There was a very large firm mass on the right side of the abdomen extending from the lower abdomen up to the right upper quadrant. This was palpable but not truly visible. There were loops of small bowel matted directly to it as well as the mesentery. There was no fluid intra-abdominally and there was no foul odor. I was able to find the ileocolonic anastomosis which was intact. Initially I tried to gently finger fractionate bowel off of this mass but this was obviously going to be unsuccessful. I was quite concerned as clearly this did not appear to be an anastomotic leak. There really were no windows whatsoever to access the mass. It was smooth but quite firm. There were no other abnormalities. There was no peritoneal nodularity. The small bowel proximal to the mass appeared essentially normal. The transverse colon also appeared normal as did the stomach. At this point I scrubbed out of the case. I use our transfer center to contact Dr. Cancino of [facility] who is one of their surgical oncologist. After discussing the case with him the possibility arose for potential postoperative desmoid tumor. Nonetheless he stated that if there did not appear to be a safe window to biopsy it to simply close the abdomen and have interventional radiology attempt a percutaneous biopsies. At this point I did rescrub back into the case. I tediously looked for a safe window and there simply was not a window that I did not have to go through bowel or mesentery. At this point I irrigated the abdomen. I closed the fascia using 1 PDS in running fashion. Soft tissue was irrigated and skin was closed over skin atul. A silver dressing was applied. The patient was awakened extubated and transferred to recovery. The plan will be to admit him for symptom control and consult interventional radiology for drainage aspiration of fluid and biopsies. I attest to the content of the Intraoperative Record and any orders documented therein. Any exceptions are noted below.
[2024-07-08] MEDS: HYDROmorphone INJ 2 MG/ML SYR/VIAL IV PRN (18:20)
[2024-07-08] MEDS: fentaNYL citrate PF 100 MCG/2 ML VIAL IV PRN (18:44)
--- NOTE | 2024-07-08 19:18 | Anesthesiology Progress Note ---
Date of Service July 08, 2024 Anesthesia Post Procedure Vital Signs Vital Signs: Temp Pulse Pulse Resp BP BP Pulse Ox 07/08/24 19:00 94 H 13 110/90 99 07/08/24 18:50 95 H 14 122/89 96 07/08/24 18:40 93 H 13 117/86 94 07/08/24 18:30 90 13 117/92 100 07/08/24 18:20 89 12 123/90 100 07/08/24 18:10 88 16 104/73 100 07/08/24 18:01 98.6 F 87 15 103/66 100 07/08/24 15:27 98.2 F 67 18 117/96 96 07/08/24 14:54 79 18 100 07/08/24 14:42 78 20 100 07/08/24 14:36 83 24 100 07/08/24 14:30 113/75 07/08/24 14:24 77 19 100 07/08/24 14:15 86 19 100 07/08/24 14:00 113/72 07/08/24 13:45 80 100 07/08/24 13:30 107/80 07/08/24 13:30 107/80 07/08/24 13:25 84 20 115/84 100 07/08/24 13:19 115/84 07/08/24 13:18 89 19 94 07/08/24 13:15 85 100 07/08/24 13:00 88/66 L 07/08/24 13:00 81 99 07/08/24 12:51 72 14 99 07/08/24 12:42 68 100 07/08/24 12:36 74 16 100 07/08/24 12:31 93/61 L 07/08/24 12:30 70 100 07/08/24 12:24 68 17 100 07/08/24 12:13 71 07/08/24 12:12 79 17 100 07/08/24 12:06 79 24 100 07/08/24 11:45 78 20 100 07/08/24 11:30 74 22 100 07/08/24 11:30 115/74 07/08/24 11:30 115/74 07/08/24 11:30 115/74 07/08/24 11:13 07/08/24 10:36 97.7 F 105 H 20 131/82 100 O2 Del Method O2 Flow Rate 12/13/24 19:00 Nasal Cannula 2 07/08/24 18:50 Nasal Cannula 2 07/08/24 18:40 Room Air 07/08/24 18:30 Oxymask 8 07/08/24 18:20 Oxymask 8 07/08/24 18:10 Oxymask 15 07/08/24 18:01 Oxymask 15 07/08/24 15:27 Room Air 07/08/24 14:54 07/08/24 14:42 07/08/24 14:36 07/08/24 14:30 07/08/24 14:24 07/08/24 14:15 07/08/24 14:00 07/08/24 13:45 07/08/24 13:30 07/08/24 13:30 07/08/24 13:25 Room Air 07/08/24 13:19 07/08/24 13:18 07/08/24 13:15 07/08/24 13:00 07/08/24 13:00 07/08/24 12:51 07/08/24 12:42 07/08/24 12:36 07/08/24 12:31 07/08/24 12:30 Room Air 07/08/24 12:24 07/08/24 12:13 07/08/24 12:12 07/08/24 12:06 07/08/24 11:45 07/08/24 11:30 07/08/24 11:30 07/08/24 11:30 07/08/24 11:30 07/08/24 11:13 Room Air 07/08/24 10:36 Room Air Pain Intensity Back: Pain Intensity: 6 Transfer of Care Handoff Completed per policy Notes Mental Status: alert / awake / arousable and participated in evaluation Patient Amnestic to Procedure: Yes Nausea / Vomiting: adequately controlled Pain: adequately controlled Airway Patency, RR, SpO2: stable & adequate BP & HR: stable & adequate Hydration State: stable & adequate Anesthetic Complications: no major complications apparent and Pt Satisfied with anesthetic care
[2024-07-08] MEDS ORDERED: oxyCODONE HCL IR 5 MG TAB (IMMEDIATE RELEASE) PO PRN ×2 (19:52)
[2024-07-08 20:22] LABS: Hematocrit (blood only) 30.3 % (42.0-52.0); Mean Corpuscular Hemoglobin 31.2 pg (25.0-34.0); Mean Corpuscular Volume 94.4 fL (80.0-100.0); Mean Platelet Volume 8.5 fL (9.4-12.4); Platelet Count 458 K/uL (130-400); RDW Coefficient of Variation 14.9 % (11.5-14.5); RDW Standard Deviation 52.3 fL (36.4-46.3); Red Blood Count 3.21 M/uL (4.70-6.10); White Blood Count 16.44 K/ul (4.8-10.8)
[2024-07-08] MEDS: SODIUM CHLORIDE 0.9% 500 ML IV SCH (20:33)
[2024-07-08] MEDS: ACETAMINOPHEN 1,000 MG/100 ML VIAL IV SCH (20:34)
[2024-07-08 20:41] LABS: Albumin Globulin Ratio 0.9 (0.9-2); Albumin Level 3.3 gm/dl (3.4-5.0); BUN Creatinine Ratio 16.4 (10-20); Calcium 8.7 mg/dl (8.6-10.3); Creatinine Clr Calc Pharmacy 64.7 ml/min; Globulin 3.7 gm/dl (2.5-4.0); Potassium 4.6 mmol/L (3.5-5.1)
[2024-07-08 21:47] LABS: Basophils # (auto) 0.04 K/uL (0.00-0.20); Basophils % (auto) 0.2 %; Eosinophils # (auto) 0.02 K/uL (0.00-0.50); Eosinophils % (auto) 0.1 %; Immature Granulocytes # (auto) 0.53 K/uL (0.01-0.20); Immature Granulocytes % (auto) 3.2 %; Lymphocytes # (auto) 0.67 K/uL (1.20-3.40); Lymphocytes % (auto) 4.1 %; Monocytes % (auto) 1.8 %; Neutrophils # (auto) 14.88 K/uL (1.40-6.50); Neutrophils % (auto) 90.6 %; Ovalocytes 1+
[2024-07-09] MEDS: HYDROmorphone INJ 0.5 MG/0.5 ML SYR IV PRN ×2 (02:39→09:26)
[2024-07-09 06:22] LABS: Hematocrit (blood only) 31.4 % (42.0-52.0); Hemoglobin 9.7 g/dl (14.0-18.0); Mean Corpuscular Hemoglobin 29.8 pg (25.0-34.0); Mean Corpuscular Hgb Conc 30.9 g/dL (32.0-36.0); Mean Corpuscular Volume 96.3 fL (80.0-100.0); Mean Platelet Volume 8.6 fL (9.4-12.4); Platelet Count 474 K/uL (130-400); RDW Standard Deviation 52.8 fL (36.4-46.3); Red Blood Count 3.26 M/uL (4.70-6.10); White Blood Count 16.47 K/ul (4.8-10.8)
[2024-07-09 06:42] LABS: Albumin Globulin Ratio 0.8 (0.9-2); Albumin Level 3.1 gm/dl (3.4-5.0); BUN Creatinine Ratio 17.6 (10-20); Bilirubin,Total 0.8 mg/dl (0.2-1.0); Globulin 3.8 gm/dl (2.5-4.0); Potassium 4.8 mmol/L (3.5-5.1); Total Protein 6.9 gm/dl (6.0-8.3)
[2024-07-09 07:16] LABS: ALC (manual) 1.98 K/uL (1.2-3.4); Lymphocytes # (manual) 1.98 K/uL (1.2-3.4); Lymphocytes % (manual) 12 %; Monocytes # (manual) 0.49 K/uL (0.11-0.59); Monocytes % (manual) 3 %; Neutrophils % (manual) 85 %; Ovalocytes 1+; Polychromasia 1+; Tear Drop Cells 1+
[2024-07-09] MEDS: LEVOTHYROXINE SODIUM 75 MCG TABLET PO SCH (09:21)
--- NOTE | 2024-07-09 10:02 | Surgery Progress Note ---
Date of Service July 09, 2024 Assessment & Plan (1) Abdominal fluid collection: Plan: complex fluid collection/mass discussed with patient possibilities desmoid/sarcoma/possible contained leak will need IR bx begin IVF till taking po better remove alves Admission and Anticipated Discharge Date Admission Date: July 08, 2024 Subjective pain controlled OK c/o back pain and not incisional pain taking a little of clears will begin some IVF till eating better Review of Systems Constitutional: no fever and no chills Respiratory: no cough and no dyspnea Cardiovascular: no chest pain Gastrointestinal: + abdominal pain; no nausea and no vomit ing Genitourinary: no dysuria Musculoskeletal: + back pain Neurologic: no localized weakness and no generalized weakness Psychiatric: no behavioral changes Physical Exam Constitutional: WD/WN, vitals as above Respiratory: normal respiratory effort, lungs clear to auscultation Cardiovascular: RRR, no murmur, no edema Gastrointestinal (Abdomen): Inspection/Auscultation: abdomen normal to inspection, normal bowel sounds and + abdominal surgical incision (clean and dry); abdomen not distended Percussion/Palpation: + abdomen tender and abdomen soft Musculoskeletal: Head/Neck/Chest: normocephalic and head atraumatic Results & Data Vital Signs (Past 12 Hours) Vital Signs Temp Pulse Resp BP Pulse Ox O2 Del Method O2 Flow Rate 07/09/24 07:30 36.3 C L 85 18 125/79 95 Room Air 07/09/24 03:17 36.2 C L 104 H 18 128/85 99 Nasal Cannula 3 07/08/24 22:51 106 H 18 117/81 100 Nasal Cannula 2
[2024-07-09] MEDS: SODIUM CHLORIDE 0.9% 500 ML IV SCH (11:48)
[2024-07-09 22:55] LABS: Appearance Urine Cloudy (Clear); Bacteria Urine Automated None Seen (None Seen); Bilirubin Urine Negative (Negative); Blood Urine 3+ (Negative); Color Urine Orange; Epithelial Cell Urine Auto 0-2 /hpf (0-2); Glucose Urine UA Negative (Negative); Ketones Urine Negative (Negative); Leukocyte Esterase Urine Trace (Negative); Nitrite Urine Negative (Negative); Protein Urine 2+ (Negative); RBC Urine Automated >20 /hpf (0-2); Specific Gravity Urine 1.034 (1.000-1.030); Urobilinogen Urine Negative (Negative)
[2024-07-10] MEDS: CALCIUM CARBONATE 500 MG CHEWABLE TAB PO ONE (02:16)
[2024-07-10] MEDS: ONDANSETRON INJ 2 MG/ML 2 ML VIAL IV PRN (05:44)
[2024-07-10] MEDS: ONDANSETRON INJ 2 MG/ML 2 ML VIAL ONE (05:44)
--- NOTE | 2024-07-10 06:49 | Electrocardiogram Report ---
Test Reason : Blood Pressure : */* mmHG Vent. Rate : 83 BPM Atrial Rate : 83 BPM P-R Int : 158 ms QRS Dur : 74 ms QT Int : 386 ms P-R-T Axes : 35 12 23 degrees QTcB Int : 453 ms Normal sinus rhythm Low voltage QRS Borderline ECG When compared with ECG of 27-Apr-2024 14:29, No significant change was found Confirmed by Reji Wing ([id number]) on 07/10/2024 6:49:16 AM Referred By: Confirmed By: Reji Wing
--- NOTE | 2024-07-10 09:42 | Surgery Progress Note ---
Date of Service July 10, 2024 Assessment & Plan (1) Abdominal fluid collection: Plan: slow progress ambulate with assistance zofran/protonix ordered possible IR biopsy this week Admission and Anticipated Discharge Date Admission Date: July 08, 2024 Subjective some nausea and reflux overnight pain reasonably well-controlled OOB this AM alves out; no issues Review of Systems Constitutional: no fever, no chills and no anorexia Respiratory: no cough and no dyspnea Cardiovascular: no chest pain Gastrointestinal: + abdominal pain and + nausea; no vomiti ng and no change in bowel habits (some flatus) Genitourinary: no dysuria Musculoskeletal: + back pain Neurologic: + generalized weakness; no localized wea kness Psychiatric: no behavioral changes Physical Exam Constitutional: WD/WN, vitals as above Neck: trachea midline Respiratory: normal respiratory effort, lungs clear to auscultation Cardiovascular: RRR, no murmur, no edema Gastrointestinal (Abdomen): Inspection/Auscultation: abdomen normal to inspection, normal bowel sounds and + abdominal surgical incision (clean and dry); abdomen not distended Percussion/Palpation: + abdomen tender and abdomen soft; no guarding and abdomen not rigid Musculoskeletal: Head/Neck/Chest: normocephalic and head atraumatic Skin: no rashes, warm and dry Results & Data Vital Signs (Past 12 Hours) Vital Signs Temp Pulse Resp BP Pulse Ox O2 Del Method 07/10/24 09:33 36.8 C 113 H 16 129/87 92 Room Air
[2024-07-10] MEDS: PANTOprazole 40 MG TAB PO SCH (11:55)
--- NOTE | 2024-07-10 14:54 | Hospitalist Consultation ---
Date of Consultation July 10, 2024 Assessment & Plan (1) Abdominal fluid collection: (2) Acute urinary retention: (3) Hypercholesteremia: (4) Hypertension: (5) Hypothyroidism: (6) H/O right hemicolectomy: (7) Acid reflux: Plan 68 year old male s/p ex lap 07/08: Daily Aspirin held in perioperative setting. HTN: - Resume Telmisartan 20mg QAM HLD: - Resume Crestor 5mg QHS + CoQ10 for statin-induced myalgias Hypothyroidism: - Resume Synthroid 75mcg daily Acute urinary retention: Urology consulted, Rasmussen in place. Acid Reflux: - give one dose of Pepcid now - Protonix 40mg QAM - PRN Pepcid 20mg Post-op Pain Control: - Scheduled Tylenol 1g Q8H - PRN Oxycodone, Dilaudid - PRN Colace/Miralax for opioid-induced constipation VTE ppx: SCDs, chemical ppx held in immediate perioperative setting, consider adding if/when no further procedures anticipated Supervising Physician Co-Signing Physician Notes Attending Physician Supervision Note: I independently interviewed and examined the patient and verified the saunders history and physical, reviewed labs and image studies and agree with findings and care plan noted above. Also, Right hemiabdomen fluid and fat collection - care per primary service. for IR intervention in am. Colon cancer - Curative s/p hemicolectomy in Apr 2024. Prostate cancer - s/p radical prostatectomy. Curative. Polycythemia vera with Myelofibrosis JAK2 mutation - Hydroxyurea on hold in perioperative period. History of Present Illness Reason for Consultation: Medication management Attending Physician: Camden Durbin, History of Present Illness 68 year old male s/p ex lap 07/08, hospitalist service consulted for medication management. Patient reports pain adequately controlled at present. States significant ongoing acid reflux. Patient was initially able to urinate when Rasmussen was initially removed, states that urinary retention started this AM, could tell his bladder was full but was unable to void spontaneously. Urology was consulted, Rasmussen successfully placed. Medical comorbidities as noted in assessment/plan. Patient to be seen by IR tomorrow for percutaneous biopsy. Allergies Allergy/AdvReac Type Severity Reaction Status Date / Time atorvastatin AdvReac Unknown muscle Verified 07/08/24 14:06 weakness Home Medications Medication Instructions Recorded Confirmed Type cholecalciferol (vitamin D3) 125 125 mcg PO QAM 03/26/21 07/08/24 History mcg (5,000 unit) tablet (Vitamin D3) melatonin 5 mg chewable tablet 5 mg PO HS PRN Sleep 03/26/21 07/08/24 History coQ10 (ubiquinol) 100 mg capsule 100 mg PO QAM 09/04/21 07/08/24 History krill 350 mg-omega-3 90 mg-dha 24 1 cap PO QAM 09/04/21 07/08/24 History mg-epa 50 [id number] capsule (MegaRed [place]-3 Krill Oil) famotidine 20 mg tablet 20 mg PO UD PRN Acid Reflux 09/04/22 07/08/24 History ondansetron 4 mg disintegrating 4 mg PO Q6H PRN nausea and 01/12/23 07/08/24 Rx tablet vomiting #20 tabs sildenafil (pulm.hypertension) 20 20 mg PO ONCE PRN sexual activity 08/18/23 07/08/24 Rx mg tablet #30 tabs levothyroxine 75 mcg tablet 75 mcg PO QAM #90 tabs 09/04/23 07/08/24 Rx aspirin 81 mg capsule 81 mg PO QAM 03/02/24 07/08/24 History hydroxyurea 500 mg capsule 0 mg PO UD 03/02/24 07/08/24 History meclizine 12.5 mg tablet 12.5 - 25 mg PO TID PRN dizziness 03/02/24 07/08/24 History omeprazole 20 mg capsule,delayed 40 mg PO DAILY PRN gerd 03/02/24 07/08/24 History release folic acid 1 mg tablet 1 mg PO DAILY 05/20/24 07/08/24 History celecoxib 200 mg capsule (Celebrex) 200 mg PO BID 06/15/24 07/08/24 History rosuvastatin 5 mg tablet 5 mg PO HS #90 tabs 06/30/24 07/08/24 Rx telmisartan 20 mg tablet 20 mg PO QAM 90 days #90 tabs 06/30/24 07/08/24 Rx magnesium 250 mg tablet 250 mg PO DAILY 07/08/24 07/08/24 History Patient History Medical History (Updated 07/10/24 @ 15:18 by Hever H. Alston, DO) Chronic anemia Hypercholesteremia Anxiety Myelofibrosis Colon cancer (03/2024) Erectile dysfunction Hypertension Polycythemia vera Dx 06/2023, w/myelofibrosis Follows with Dr. Valera Constipation History of prostate cancer Dx 2020, s/p prostatectomy Back problem Syncope Remote hx s/p unremarkable holter, no recent issues Male stress incontinence Osteoarthritis Acid reflux History of duodenal ulcer Remote hx in early Diverticular disease Tinnitus Hypothyroidism Myalgia chronic Surgical History History of colonoscopy [facility] (02/2024) Hx laparoscopic cholecystectomy 2022 History of robot-assisted laparoscopic radical prostatectomy Robotic laparoscopic radial retropubic prostatectomy, pelvic lymph node dissection (03/21/21): Grade view 2, MAC#3, ETT 7.5 at [facility] History of esophagogastroduodenoscopy (EGD) History of wisdom tooth extraction History of prostate biopsy Family History Brother Carotid artery disease Heart disease H/O cardiac surgery Mother Diabetes Stroke Father , 81yo Heart disease Cardiac stent Arthritis Aunt Diabetes Grandfather Heart disease Family/Other Hypertension Other No family history of adverse response to anesthesia Denies family history of Ovarian cancer Prostate cancer Breast cancer Colorectal cancer Social History (Updated 06/21/24 @ 11:23 by Kelly Fernández LPN) Smoking Status: Former smoker Tobacco Type: Declines Second Hand Exposure: No; Do You Dip or Chew Tobacco: No; Tobacco Cessation Education Requested by Patient: No Hx Alcohol Use: No Hx Substance Use: No Preferred Language: Bulgarian Communication Ability: Effective Visual Impairment: No Limitations Hearing Ability: Normal Recordings Librarian Required: No Beliefs That Will Affect Care: None marital status: Current Living Situation: Spouse current occupational status: employed and unemployed 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, 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 [employer] How many Children do You have: 4 Other Information That Helps Us Care for You: No Feels Safe at Home: Yes Safety Concerns: Feels Safe At This Time Diet: regular caffeine: No during the past year weight has: decreased > 10 lbs Dental Care, Regularly: Yes Seatbelt Use: always Sunscreen Use: Yes Assistive Devices: Walker Review of Systems Review of Systems: as per HPI Physical Exam Constitutional: WD/WN, vitals as above ENMT: external ear and nose normal, oropharynx normal Respiratory: normal respiratory effort; no respiratory distress and no labored breathing Gastrointestinal (Abdomen): Inspection/Auscultation: abdomen normal to inspection (non-distended ) Skin: no rashes, warm and dry Psychiatric: A+Ox3, euthymic affect Results & Data Results & Data Vital Signs (Past 12 Hours) Vital Signs Temp Pulse Resp BP Pulse Ox O2 Del Method 07/10/24 09:33 36.8 C 113 H 16 129/87 92 Room Air Resident Activity Tracking Resident Involvement: Resident Care Provided Care Provided: Adult Hospital Medicine
--- NOTE | 2024-07-10 15:19 | Urology Consultation ---
Date of Consultation July 10, 2024 Assessment & Plan (1) Acute urinary retention: (2) H/O right hemicolectomy: (3) Abdominal fluid collection: (4) Back pain: (5) Polycythemia: (6) Abdominal lymphadenopathy: (7) History of robot-assisted laparoscopic radical prostatectomy: Plan Patient with acute urinary retention. Well-known to urology. Has history of prostate cancer with r history of robot-assisted laparoscopic prostatectomy. Patient had been diagnosed with colon cancer and had undergone partial colectomy and has subsequently been dealing with issues. Had presented with increasing pain discomfort abdominal distention back and flank pain and findings of large fluid collection versus mass in the right upper quadrant. Had undergone exploratory laparotomy. Has plans for likely drainage and biopsy with interventional radiology in the coming days. Patient had catheter removed and has subsequently having increasing issues with voiding. Did void immediately after catheter was removed however has been having increasing issues over the last few hours and has not voided since early this morning. Did have some small amounts of bloody urine at 1 point. Patient independently assessed, examined, interviewed, and evaluated. Agree with note as above. Patient's vitals and labs were all reviewed. Pertinent values in the HPI and plan section. Most recent hemoglobin 9.7. White count 16.47. Creatinine 1.25. PSA from the summer was 0.078. Imaging was reviewed interpreted by myself. Large fluid collection versus mass in the right upper quadrant possibly intra-abdominal abscess. No significant hydronephrosis or signs of obstruction within the ureters or urinary system. Agree with read. Vitals were reviewed. Blood pressure 129/87 pulse 113 respiration 16 temperature 36.8 oxygen saturation 92% on room air Discussed findings extensively with patient and family. Reviewed with nurse practitioner as well as consulting physicians/team. Patient's complicated medical and surgical history was reviewed and summarized above. Patient's surgical, medical, social, and family history were all reviewed with pertinent values as above. Discussed patient's current diagnosis as well as concerns and issues. Reviewed different options moving forward. Discussed potential risks and benefits as well as possible options and concerns. Reviewed potential surgical options and interventions. Discussed potential issues and concerns related to intervention. Risk and benefits were discussed extensively with patient and any available family. Discussed potential risks related to anesthesia. Discussed risks of bleeding infection and injury. Reviewed extensively possible options for surgical intervention such as cystoscopy to evaluate area of issue. Nursing had attempted multiple catheters earlier in the day with no ability to drain the bladder. Patient has had some small areas of leakage and did have some mild bloody urine at 1 point. Has not voided significantly since early this morning. Bladder scan was found to be significant with volume over 500 cc. Patient was agreeable to bedside catheter placement. Approximately 1 L of urine was drained after catheter placement did appear to be initially clear with mild pink tinge however had a dark red/brown coloration after approximately 500 cc likely due to debris possibly old blood in the base of the bladder. Had likely area of narrowing at the bladder neck which required significant manipulation and utilization of the larger catheter in order to allow placement of the catheter. Please see below for full bedside procedure note. Patient was prepped and draped in the usual sterile fashion. Patient agreed to move forward with bedside catheter attempt and placement. Risk and benefits have been thoroughly reviewed. Patient had previously tolerated catheters and was well-known having previously had prostate cancer with radical prostatectomy. A local lidocaine jelly was injected into the urethra. A 18 [place] coud catheter was attempted first however the catheter would not advance past the bladder neck. A 22 [place] coud catheter was then attempted utilizing sterile technique. The catheter was able to advance once again to the bladder neck with some manipulation a very small amount of urine was seen draining from the catheter however the catheter would no longer advance likely due to possible contracture or area of restriction along the proximal urethra. 18 [place] coud catheter was then attempted and at this point the catheter was able to advance to the bladder neck with some manipulation the catheter was able to further advance into the bladder. Urine was able to be received and the catheter was able to easily advanced into the bladder the remainder the way. Urine was drained to the Rasmussen bag at the catheter balloon was elevated. A large amount of urine was received immediately that appear to be clear with a mild light pink coloration. After approximately 500 cc the urine became more dark and appeared to be containing debris likely old blood in the base of the bladder. Approximately 1000 cc were drained with the catheter placement. The patient was cleaned the catheter was secured and set to bedside drainage. Will plan to maintain catheter during hospitalization. Will await final plans from general surgery and interventional radiology moving forward. Will likely need a catheter for approximately 5 to 7 days. Can trial catheter removal again. If patient is still within the hospital may be able to trial while patient is inpatient however if necessary can be set up as an outpatient. Patient's complicated medical and surgical history is reviewed and surmise above all imaging was reviewed interpreted by myself. All labs and vitals were reviewed please see HPI or plan section for full report. Will plan to have patient set up for outpatient follow-up History of Present Illness Attending Physician: Camden Durbin, DO History of Present Illness Consult for urinary issues with incomplete emptying and possible retention. Well-known patient to urology. Has history of prostate cancer and had undergone a radical prostatectomy. Over the summer had been discovered to have likely biochemical recurrence. Patient also subsequently was discovered to have a malignant polyp of the colon and had undergone a bowel resection. Is being readmitted due to pelvic abdominal flank back pain and found to have a large fluid collection versus mass within the right upper quadrant on CT imaging. Nhi lowe had undergone exploratory laparotomy. Has been recovering from procedure. Is likely going to be undergoing drainage or biopsy or drain placement over the next few days with interventional radio logy. Had catheter removed from exploratory laparotomy and has been having increasing issues with voiding. Patient has mild to moderate discomfort in pelvis and groin going to back and side in waves. Majority of discomfort and pain in the abdomen due to bloating discomfort and likely the large fluid collection versus mass. Patient is actively recovering from recent major surgery as well as from the ongoing issues and discomfort from the large mass/tumor/fluid collection. Has been deconditioned from this. Has decreased mobility significantly with acute issues. Patient has not had complete return to normal bowel function. Has had some minor urinary issues in the past. Denies bleeding. No severe nausea or vomiting. Currently no fevers. Discussed with patient multifactorial nature of urinary issues, retention, and incomplete bladder emptying. Reviewed extensively patient's history of prostate cancer with radical prostatectomy. Discussed concerns and issues. Discussed decreased mobility and trouble voiding. Discussed issues related to deconditioning and weakened state. Discussed possibility that patient had more moderate to severe issues and with the acute illness and deconditioning these issues became more prevalent and obvious. Discussed bowel function and possible issues related to decrease in function and its relation to other pelvic organs and systems. Discussed different medications, will use during hospitalization and their effect on ability to empty. Patient was agreeable to attempt catheter placement bedside. Allergies Allergy/AdvReac Type Severity Reaction Status Date / Time atorvastatin AdvReac Unknown muscle Verified 07/08/24 14:06 weakness Home Medications Medication Instructions Recorded Confirmed Type cholecalciferol (vitamin D3) 125 125 mcg PO QAM 03/26/21 07/08/24 History mcg (5,000 unit) tablet (Vitamin D3) melatonin 5 mg chewable tablet 5 mg PO HS PRN Sleep 03/26/21 07/08/24 History coQ10 (ubiquinol) 100 mg capsule 100 mg PO QAM 09/04/21 07/08/24 History krill 350 mg-omega-3 90 mg-dha 24 1 cap PO QAM 09/04/21 07/08/24 History mg-epa 50 [id number]-gwlew capsule (MegaRed [place]-3 Krill Oil) famotidine 20 mg tablet 20 mg PO UD PRN Acid Reflux 09/04/22 07/08/24 History ondansetron 4 mg disintegrating 4 mg PO Q6H PRN nausea and 01/12/23 07/08/24 Rx tablet vomiting #20 tabs sildenafil (pulm.hypertension) 20 20 mg PO ONCE PRN sexual activity 08/18/23 07/08/24 Rx mg tablet #30 tabs levothyroxine 75 mcg tablet 75 mcg PO QAM #90 tabs 09/04/23 07/08/24 Rx aspirin 81 mg capsule 81 mg PO QAM 03/02/24 07/08/24 History hydroxyurea 500 mg capsule 0 mg PO UD 03/02/24 07/08/24 History meclizine 12.5 mg tablet 12.5 - 25 mg PO TID PRN dizziness 03/02/24 07/08/24 History omeprazole 20 mg capsule,delayed 40 mg PO DAILY PRN gerd 03/02/24 07/08/24 Hist ory release folic acid 1 mg tablet 1 mg PO DAILY 05/20/24 07/08/24 History celecoxib 200 mg capsule (Celebrex) 200 mg PO BID 06/15/24 07/08/24 History rosuvastatin 5 mg tablet 5 mg PO HS #90 tabs 06/30/24 07/08/24 Rx telmisartan 20 mg tablet 20 mg PO QAM 90 days #90 tabs 06/30/24 07/08/24 Rx magnesium 250 mg tablet 250 mg PO DAILY 07/08/24 07/08/24 History Patient History Medical History (Updated 07/10/24 @ 15:18 by Hever Alston DO) Chronic anemia Hypercholesteremia Anxiety Myelofibrosis Colon cancer (03/2024) Erectile dysfunction Hypertension Polycythemia vera Dx 06/2023, w/myelofibrosis Follows with Dr. Valera Constipation History of prostate cancer Dx 2020, s/p prostatectomy Back problem Syncope Remote hx s/p unremarkable holter, no recent issues Male stress incontinence Osteoarthritis Acid reflux History of duodenal ulcer Remote hx in early Diverticular disease Tinnitus Hypothyroidism Myalgia chronic Surgical History History of colonoscopy [facility] (02/2024) Hx laparoscopic cholecystectomy 2022 History of robot-assisted laparoscopic radical prostatectomy Robotic laparoscopic radial retropubic prostatectomy, pelvic lymph node dissection (03/21/21): Grade view 2, MAC#3, ETT 7.5 at [facility] History of esophagogastroduodenoscopy (EGD) History of wisdom tooth extraction History of prostate biopsy Family History Brother Carotid artery disease Heart disease H/O cardiac surgery Mother Diabetes Stroke Father , 81yo Heart disease Cardiac stent Arthritis Aunt Diabetes Grandfather Heart disease Family/Other Hypertension Other No family history of adverse response to anesthesia Denies family history of Ovarian cancer Prostate cancer Breast cancer Colorectal cancer Social History (Updated 06/21/24 @ 11:23 by Kelly Fernández LPN) Smoking Status: Former smoker Tobacco Type: Declines Second Hand Exposure: No; Do You Dip or Chew Tobacco: No; Tobacco Cessation Education Requested by Patient: No Hx Alcohol Use: No Hx Substance Use: No Preferred Language: Lithuanian Communication Ability: Effective Visual Impairment: No Limitations Hearing Ability: Normal Design Engineer Agricultural Equipment Required: No Beliefs That Will Affect Care: None marital status: Current Living Situation: Spouse current occupational status: employed and unemployed 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 HEENT: Normocephalic Atraumatic. Inspection normal. Cranial Nerves 2-12 Grossly intact. Nares are clear. Neck is supple. Normal inspection of face. Normal inspection of neck. Neurologic: No deficits on inspection. Baseline for motor function and sensory. Psychologic: Normal affect. Respiratory: Nonlabored. No use of accessory muscles. No tachypnea or dyspnea. Cardiovascular: No tachycardia Skin: [place] and Dry. No rashes or visible lesions. Extremities: Moving without issues. No motor deficits on inspection Lymphatics: No edema Abdomen: Distended abdomen. Recent exploratory laparotomy with wounds CDI. No rebound or guarding. Moderate suprapubic tenderness. Results & Data Vital Signs (Past 12 Hours) Vital Signs Temp Pulse Resp BP Pulse Ox O2 Del Method 07/10/24 09:33 36.8 C 113 H 16 129/87 92 Room Air PG Care Time/CCT Total # of Minutes Spent Total Time Spent with Patient: Total time spent is greater than 50% in coordination of care (as documented) at patient's floor/unit and/or counseling patient: Coding Level of Care Code 83329 INT INP/OBS CARE 3/75MIN Diagnoses Acute urinary retention R33.8 H/O right hemicolectomy Z90.49 Abdominal fluid collection R18.8 Back pain M54.9 Polycythemia D75.1 Abdominal lymphadenopathy R59.0 History of robot-assisted laparoscopic radical prostatectomy Z90.79
[2024-07-10] MEDS ORDERED: FAMOTIDINE 20MG IV PUSH 20 MG/5 ML SYR IV PRN (15:45)
[2024-07-10] MEDS ORDERED: POLYETHYLENE (MIRALAX) 17 GM PACK PO PRN (16:00)
[2024-07-10] MEDS ORDERED: DOCUSATE SODIUM SYRUP 100 MG/10 ML UDC PO PRN (16:00)
[2024-07-10] MEDS: FAMOTIDINE 20MG IV PUSH 20 MG/5 ML SYR IV STA (16:06)
[2024-07-10] MEDS: LIDOCAINE 2% JELLY 5 ML TUBE EXT ONE (16:07)
[2024-07-10] MEDS: MELATONIN 3 MG TAB PO PRN (20:20)
[2024-07-10] MEDS ORDERED: ROSUVASTATIN CALCIUM 5 MG TAB PO SCH (21:00)
[2024-07-10] MEDS: SODIUM CHLORIDE 0.9% 1,000 ML IV SCH (22:11)
[2024-07-11] MEDS: CALCIUM CARBONATE 500 MG CHEWABLE TAB PO PRN (00:36)
[2024-07-11 08:18] LABS: Hematocrit (blood only) 31.3 % (42.0-52.0); Hemoglobin 10.1 g/dl (14.0-18.0); Mean Corpuscular Hemoglobin 30.4 pg (25.0-34.0); Mean Corpuscular Hgb Conc 32.3 g/dL (32.0-36.0); Mean Corpuscular Volume 94.3 fL (80.0-100.0); Mean Platelet Volume 8.5 fL (9.4-12.4); Platelet Count 470 K/uL (130-400); RDW Coefficient of Variation 15.4 % (11.5-14.5); RDW Standard Deviation 53.3 fL (36.4-46.3); Red Blood Count 3.32 M/uL (4.70-6.10); White Blood Count 17.01 K/ul (4.8-10.8)
--- NOTE | 2024-07-11 08:28 | Surgery Progress Note ---
Date of Service July 11, 2024 Assessment & Plan (1) Abdominal fluid collection: Plan: ? etiology. not amenable safely via laparotomy. need IR to drain as much fluid as possible and obtain biopsies and leave drain pt currently stable. (2) Abdominal pain: Admission and Anticipated Discharge Date Admission Date: July 08, 2024 Subjective pt seen with at bedside..."rough weekend". feels very full. continues to have bowel movements...did have 1 episode of emesis this AM.... feels "full". Physical Exam Physical Exam: alert. nad abd: distended. firm. unchanged from thursday. Results & Data Vital Signs (Past 12 Hours) Vital Signs Temp Pulse Resp BP Pulse Ox O2 Del Method O2 Flow Rate 07/11/24 06:08 36.6 C 110 H 20 125/84 96 Room Air 07/10/24 23:31 36.5 C 107 H 18 143/88 H 96 Nasal Cannula 2 07/10/24 20:54 37.0 C 109 H 18 93/60 L 91 Room Air PG Care Time/CCT Total # of Minutes Spent Total Time Spent with Patient: Total time spent is greater than 50% in coordination of care (as documented) at patient's floor/unit and/or counseling patient: Coding Level of Care Code 96822 Post Operative Follow-Up Diagnoses Abdominal fluid collection R18.8 Abdominal pain R10.9
[2024-07-11 08:41] LABS: BUN Creatinine Ratio 18.3 (10-20); Calcium 8.8 mg/dl (8.6-10.3); Creatinine Clr Calc Pharmacy 87.4 ml/min; Potassium 3.9 mmol/L (3.5-5.1)
[2024-07-11 08:42] LABS: INR 1.1 (0.9-1.1); Partial Thromboplastin Ratio 1.1; Partial Thromboplastin Time 30 Seconds (21-31); Prothrombin Time 11.9 Seconds (9.0-12.0)
[2024-07-11 08:51] LABS: Basophils # (auto) 0.05 K/uL (0.00-0.20); Basophils % (auto) 0.3 %; Eosinophils # (auto) 0.06 K/uL (0.00-0.50); Eosinophils % (auto) 0.4 %; Immature Granulocytes # (auto) 0.95 K/uL (0.01-0.20); Immature Granulocytes % (auto) 5.6 %; Lymphocytes # (auto) 1.02 K/uL (1.20-3.40); Monocytes # (auto) 0.77 K/uL (0.11-0.59); Monocytes % (auto) 4.5 %; Neutrophils # (auto) 14.16 K/uL (1.40-6.50); Neutrophils % (auto) 83.2 %
[2024-07-11] MEDS ORDERED: PANTOprazole 40 MG TAB PO SCH (09:00)
[2024-07-11] MEDS: LOSARTAN POTASSIUM 25 MG TAB PO SCH (09:31)
[2024-07-11] MEDS: FOLIC ACID 1 MG TAB PO SCH (09:31)
--- NOTE | 2024-07-11 09:32 | Ultrasound Report ---
LEFT LOWER EXTREMITY VENOUS DOPPLER CLINICAL HISTORY: r/o LLE DVT; + pain COMPARISON STUDY: Bilateral lower extremity venous Doppler ultrasound March 26, 2021. TECHNIQUE: Sonography of the deep venous system of the left lower extremity was performed. Compressi on and augmentation were evaluated. FINDINGS: The left common femoral, superficial femoral and popliteal veins were compressible. Augmen tation was normal. Flow was shown within the deep calf vessels. IMPRESSION: No evidence of deep venous thrombus within the left lower extremity. ACT 112: Negative or not required by law. Electronically signed by: Yves Mendoza M.D. 07/11/2024 9:30 AM
--- NOTE | 2024-07-11 12:11 | Hospitalist Consultation ---
Date of Consultation July 11, 2024 Assessment & Plan (1) Abdominal fluid collection: (2) Acute urinary retention: (3) Hypercholesteremia: (4) Hypertension: (5) Hypothyroidism: (6) H/O right hemicolectomy: (7) Acid reflux: Plan 68 year old male s/p ex lap 12/13 (POD #3) - Still having abdominal pain - Has had N/V until this am, likely related to lack of bm; had bm today in am and nausea has improved, no episode of emesis since then - Continue post-op management per primary team HTN - Resume Telmisartan 20mg QAM HLD - Resume Crestor 5mg QHS + CoQ10 for statin-induced myalgias Hypothyroidism - Resume Synthroid 75mcg daily Acute urinary retention - Urology consulted; known patient of theirs - Rasmussen in place; plan to keep catheter in place during hospitalization - Urology recc outpatient follow up Acid Reflux - Protonix 40mg QAM - PRN Pepcid 20mg Post-op Pain Control - Scheduled Tylenol 1g Q8H - PRN Oxycodone, Dilaudid; patient in pain at time of evaluation, but has not used stronger pain medications - Can decrease frequency of Colace/Miralax given liquid bm this morning VTE ppx: SCDs; chemical ppx held in immediate perioperative setting, consider adding if/when no further procedures anticipated Hospitalist team to sign off. Please feel free to contact us with any questions. Supervising Physician Co-Signing Physician Notes I personally examined the patient and verified all saunders points of history and exam, discussed case, and agree with decision making with Dr Hernandez pain worsening when i saw him vitals noted nad other than appearing uncomfortable. breathing unlabored no accessory muscles good effort skin no rashes no pallor or icterus pain - ordered additional 1x dose dilauded GERD - protonix/prn pepcid HTN - BP reasonable hospitalist team will be available if need arises, do not hesitate to contact me if we can be of further assistance History of Present Illness Reason for Consultation: Medical Management Requesting Physician: Pako Biggs MD Attending Physician: Paulo Patterson DO History of Present Illness Patient is a 68-year-old male POD #3 after ex lap. Patient found to be awake alert and oriented hemispheres, afebrile, no acute distress. Patient states that he has been feeling nauseous with an episode of nonbloody, bilious emesis earlier this morning when he was attempting to have bowel movement. Prior to this episode of emesis, patient has been feeling bloated all throughout the night due to lack of or small bowel movements the day prior. This morning, patient states he had a large bowel movement that was more liquid than usual and nonbloody. Since then he has been feeling intermittent episodes of nausea but no repeat episodes of vomiting. Limited p.o. intake due to bloating and nausea that he had yesterday, but has been trying clear liquid diet, he has had a bowel movement and nausea has improved. No fevers, chills, weakness, chest pain, shortness of breath, or any other systemic symptoms. Allergies Allergy/AdvReac Type Severity Reaction Status Date / Time atorvastatin AdvReac Unknown muscle Verified 07/08/24 14:06 weakness Home Medications Medication Instructions Recorded Confirmed Type cholecalciferol (vitamin D3) 125 125 mcg PO QAM 03/26/21 07/08/24 History mcg (5,000 unit) tablet (Vitamin D3) melatonin 5 mg chewable tablet 5 mg PO HS PRN Sleep 03/26/21 07/08/24 History coQ10 (ubiquinol) 100 mg capsule 100 mg PO QAM 09/04/21 07/08/24 History krill 350 mg-omega-3 90 mg-dha 24 1 cap PO QAM 09/04/21 07/08/24 History mg-epa 50 vp-zedcwzi-svvaq capsule (MegaRed [place]-3 Krill Oil) famotidine 20 mg tablet 20 mg PO UD PRN Acid Reflux 09/04/22 07/08/24 History ondansetron 4 mg disintegrating 4 mg PO Q6H PRN nausea and 01/12/23 07/08/24 Rx tablet vomiting #20 tabs sildenafil (pulm.hypertension) 20 20 mg PO ONCE PRN sexual activity 08/18/23 07/08/24 Rx mg tablet #30 tabs levothyroxine 75 mcg tablet 75 mcg PO QAM #90 tabs 09/04/23 07/08/24 Rx aspirin 81 mg capsule 81 mg PO QAM 03/02/24 07/08/24 History hydroxyurea 500 mg capsule 0 mg PO UD 03/02/24 07/08/24 History meclizine 12.5 mg tablet 12.5 - 25 mg PO TID PRN dizziness 03/02/24 07/08/24 History omeprazole 20 mg capsule,delayed 40 mg PO DAILY PRN gerd 03/02/24 07/08/24 His tory release folic acid 1 mg tablet 1 mg PO DAILY 05/20/24 07/08/24 History celecoxib 200 mg capsule (Celebrex) 200 mg PO BID 06/15/24 07/08/24 History rosuvastatin 5 mg tablet 5 mg PO HS #90 tabs 06/30/24 07/08/24 Rx telmisartan 20 mg tablet 20 mg PO QAM 90 days #90 tabs 06/30/24 07/08/24 Rx magnesium 250 mg tablet 250 mg PO DAILY 07/08/24 07/08/24 History Patient History Medical History (Updated 07/10/24 @ 15:18 by Hever Alston, ) Chronic anemia Hypercholesteremia Anxiety Myelofibrosis Colon cancer (03/2024) Erectile dysfunction Hypertension Polycythemia vera Dx 06/2023, w/myelofibrosis Follows with Dr. Valera Constipation History of prostate cancer Dx 2020, s/p prostatectomy Back problem Syncope Remote hx s/p unremarkable holter, no recent issues Male stress incontinence Osteoarthritis Acid reflux History of duodenal ulcer Remote hx in early Diverticular disease Tinnitus Hypothyroidism Myalgia chronic Surgical History History of colonoscopy [facility] (02/2024) Hx laparoscopic cholecystectomy 2022 History of robot-assisted laparoscopic radical prostatectomy Robotic laparoscopic radial retropubic prostatectomy, pelvic lymph node dissection (03/21/21): Grade view 2, MAC#3, ETT 7.5 at [facility] History of esophagogastroduodenoscopy (EGD) History of wisdom tooth extraction History of prostate biopsy Family History Brother Carotid artery disease Heart disease H/O cardiac surgery Mother Diabetes Stroke Father , 81yo Heart disease Cardiac stent Arthritis Aunt Diabetes Grandfather Heart disease Family/Other Hypertension Other No family history of adverse response to anesthesia Denies family history of Ovarian cancer Prostate cancer Breast cancer Colorectal cancer Social History (Updated 06/21/24 @ 11:23 by VIRGINIE Mccabe Smoking Status: Former smoker Tobacco Type: Declines Second Hand Exposure: No; Do You Dip or Chew Tobacco: No; Tobacco Cessation Education Requested by Patient: No Hx Alcohol Use: No Hx Substance Use: No Preferred Language: Danish Communication Ability: Effective Visual Impairment: No Limitations Hearing Ability: Normal Gradall Operator Required: No Beliefs That Will Affect Care: None marital status: Current Living Situation: Spouse current occupational status: employed and unemployed 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, 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 [employer] How many Children do You have: 4 Other Information That Helps Us Care for You: No Feels Safe at Home: Yes Safety Concerns: Feels Safe At This Time Diet: regular caffeine: No during the past year weight has: decreased > 10 lbs Dental Care, Regularly: Yes Seatbelt Use: always Sunscreen Use: Yes Assistive Devices: Walker Review of Systems Review of Systems: as per HPI Physical Exam Constitutional: WD/WN, vitals as above ENMT: external ear and nose normal, oropharynx normal Respiratory: normal respiratory effort; no respiratory distress and no labored breathing Gastrointestinal (Abdomen): Inspection/Auscultation: + abdomen distended (mild distension) Skin: no rashes, warm and dry Psychiatric: A+Ox3, euthymic affect Results & Data Results & Data Vital Signs (Past 12 Hours) Vital Signs Temp Pulse Resp BP Pulse Ox O2 Del Method 07/11/24 07:45 Room Air 07/11/24 06:08 36.6 C 110 H 20 125/84 96 Room Air Resident Activity Tracking Resident Involvement: Resident Care Provided Care Provided: Adult Hospital Medicine
[2024-07-11] MEDS: SODIUM CHLORIDE 0.9% 1,000 ML IV SCH (12:22)
[2024-07-11] MEDS: 4.5GM X1 IV ONE (12:22)
[2024-07-11] MEDS: HYDROmorphone INJ 0.5 MG/0.5 ML SYR IV STA (16:07)
[2024-07-11] MEDS: PIPERACILLIN/TAZOBACTAM 4.5 GM/100 ML BAG IV SCH (17:23)
--- NOTE | 2024-07-11 18:54 | Billing Data ---
Date of Service July 11, 2024 Coding Level of Care Code 17189 SUB INP/OBS CARE
[2024-07-11] MEDS: ROSUVASTATIN CALCIUM 5 MG TAB PO SCH (19:38)
[2024-07-11] MEDS: COUGH DROP (SUGAR FREE) LOZ 24 LOZ/1 BOX BUCCAL STA (20:01)
--- NOTE | 2024-07-12 07:49 | Surgery Progress Note ---
Date of Service July 12, 2024 Assessment & Plan (1) Abdominal fluid collection: Plan: pt here w/ history of R hemicolectomy for colon ca here w/ expanding RUQ mass that appears fluid and fat filled s/p exlap on 07/08 and unable to safely obtain a biopsy at that time labs pending this am, he is afebrile, HRs 90-100s IR on board and planing on performing biopsies and drainage of fluid today under CT guidance, will ask them to leave large drain in place on iv zosyn for now while awaiting cx data may resume liquid diet s/p IR procedure today appreciate hospitalists assistance with patient Admission and Anticipated Discharge Date Admission Date: July 08, 2024 Supervising Physician Co-Signing Physician Notes I have seen and examined this patient this am with the surgical team. I agree with this plan. Subjective Patient feeling about the same, reports ongoing abdominal discomfort. Awaiting his procedure today and requesting something to help him relax when down in IR suite Physical Exam Physical Exam: awake/alert, no distress but requesting pain meds 2/2 abd pain Gastrointestinal (Abdomen): Inspection/Auscultation: + abdomen distended Percussion/Palpation: + abdomen tender (generalized discomfort) Results & Data Vital Signs (Past 12 Hours) Vital Signs Temp Pulse Resp BP Pulse Ox O2 Del Method 07/12/24 07:11 98.1 F 99 H 16 120/83 94 Room Air 07/11/24 20:05 97.5 F L 100 H 18 100/70 92 Room Air PG Care Time/CCT Total # of Minutes Spent Total Time Spent with Patient: Total time spent is greater than 50% in coordination of care (as documented) at patient's floor/unit and/or counseling patient: Coding Level of Care Code 64017 Post Operative Follow-Up Diagnoses Abdominal fluid collection R18.8
[2024-07-12 07:53] LABS: Basophils # (auto) 0.04 K/uL (0.00-0.20); Basophils % (auto) 0.4 %; Eosinophils # (auto) 0.13 K/uL (0.00-0.50); Eosinophils % (auto) 1.3 %; Hematocrit (blood only) 29.3 % (42.0-52.0); Hemoglobin 9.4 g/dl (14.0-18.0); Immature Granulocytes # (auto) 0.29 K/uL (0.01-0.20); Immature Granulocytes % (auto) 2.9 %; Lymphocytes # (auto) 1.09 K/uL (1.20-3.40); Lymphocytes % (auto) 10.7 %; Mean Corpuscular Hemoglobin 30.4 pg (25.0-34.0); Mean Corpuscular Hgb Conc 32.1 g/dL (32.0-36.0); Mean Corpuscular Volume 94.8 fL (80.0-100.0); Mean Platelet Volume 8.8 fL (9.4-12.4); Monocytes # (auto) 0.89 K/uL (0.11-0.59); Monocytes % (auto) 8.8 %; Neutrophils # (auto) 7.72 K/uL (1.40-6.50); Neutrophils % (auto) 75.9 %; Platelet Count 379 K/uL (130-400); RDW Coefficient of Variation 15.4 % (11.5-14.5); RDW Standard Deviation 53.9 fL (36.4-46.3); Red Blood Count 3.09 M/uL (4.70-6.10); White Blood Count 10.16 K/ul (4.8-10.8)
[2024-07-12 08:08] LABS: BUN Creatinine Ratio 16.1 (10-20); Calcium 8.3 mg/dl (8.6-10.3); Creatinine Clr Calc Pharmacy 87.4 ml/min; Potassium 3.8 mmol/L (3.5-5.1)
--- NOTE | 2024-07-12 15:26 | CT Scan Report ---
CT-guided right upper quadrant fluid collection drainage INDICATION: Large right upper quadrant fluid collection PROCEDURE: Procedure and risks were explained. Informed consent was obtained. A final timeout was com pleted. The patient was placed supine on the CT exam table. The right abdomen was prepped and draped in sterile fashion. 1% lidocaine was utilized for skin anesthesia. Utilizing CT guidance, a 10 Yi pigtail catheter was advanced into the right abdominal fluid colle ction. Approximately 900 mL of foul smelling cream-colored fluid was drained at the time of the proce dure with a small portion sent to lab for analysis. The catheter was placed to suction bag drainage a nd sutured to the skin with 2-[address] imaging demonstrated adequate catheter position with no immediate complication. The patient tolerated the procedure well. Vital signs will be monitored p ostprocedure. IMPRESSION: Successful intra-abdominal fluid drain placement as above. Performed, dictated, and signed by Camden Alston PA-C; to be co-signed by Dr. Robert Adams. Electronically signed by: Robert Adams M.D. 07/12/2024 3:29 PM
[2024-07-12] MEDS: fentaNYL citrate PF 100 MCG/2 ML VIAL ONE (16:17)
[2024-07-12] MEDS: ACETAMINOPHEN 325 MG TAB PO PRN (17:04)
[2024-07-13 05:08] LABS: Basophils # (auto) 0.02 K/uL (0.00-0.20); Basophils % (auto) 0.2 %; Eosinophils # (auto) 0.24 K/uL (0.00-0.50); Eosinophils % (auto) 2.5 %; Hematocrit (blood only) 27.8 % (42.0-52.0); Hemoglobin 8.9 g/dl (14.0-18.0); Immature Granulocytes # (auto) 0.23 K/uL (0.01-0.20); Immature Granulocytes % (auto) 2.4 %; Lymphocytes # (auto) 1.08 K/uL (1.20-3.40); Lymphocytes % (auto) 11.1 %; Mean Corpuscular Hemoglobin 30.1 pg (25.0-34.0); Mean Corpuscular Volume 93.9 fL (80.0-100.0); Monocytes # (auto) 0.99 K/uL (0.11-0.59); Monocytes % (auto) 10.2 %; Neutrophils # (auto) 7.18 K/uL (1.40-6.50); Neutrophils % (auto) 73.6 %; Platelet Count 358 K/uL (130-400); RDW Coefficient of Variation 15.7 % (11.5-14.5); RDW Standard Deviation 53.4 fL (36.4-46.3); Red Blood Count 2.96 M/uL (4.70-6.10); White Blood Count 9.74 K/ul (4.8-10.8)
[2024-07-13 05:20] LABS: Calcium 8.3 mg/dl (8.6-10.3); Creatinine Clr Calc Pharmacy 87.4 ml/min; Potassium 3.3 mmol/L (3.5-5.1)
--- NOTE | 2024-07-13 08:20 | Surgery Progress Note ---
Date of Service July 13, 2024 Assessment & Plan (1) Abdominal fluid collection: Plan: pt here w/ history of R hemicolectomy for colon ca here w/ expanding RUQ mass that appears fluid and fat filled s/p exlap on 07/08 and unable to safely obtain a biopsy at that time Yesterday he underwent successful IR drain tube placement with >1L tannish output noted Fluid is sent for cx/gram stain and cytology which are pending WBC 9. He is afebrile with otherwise stable vitals, K 3.3 will order repletion Abdominal pain much improved, we will advance his diet. he continues w/ + bowel function Will order drain to be flushed with normal saline (250cc) twice daily Continue IV zosyn for now Encourage OOB ambulating and pulmonary toilet May repeat CT scan in next 24-48 hrs to ensure collection is getting smaller pt seen/examined with dr. Durbin As above. Feeling much better. Awaiting workup of the fluid cytology and culture. Continue antibiotics. Will advance his diet. Will need to go home with the drain. Potentially planning discharge Thursday Admission and Anticipated Discharge Date Admission Date: July 08, 2024 Subjective Patient is feeling better after IR drainage of collection. No nausea/vomiting. Some intermittent pain remains, but overall improved. He is having + bowel function. Physical Exam Physical Exam: awake/alert, no distress Respiratory: normal respiratory effort Gastrointestinal (Abdomen): Inspection/Auscultation: + abdominal surgical incision (c/d/i with midline atul) IR drain with a tannish output >1L since placement Results & Data Vital Signs (Past 12 Hours) Vital Signs Temp Pulse Resp BP Pulse Ox O2 Del Method 07/13/24 07:24 98.2 F 88 18 107/76 96 Room Air 07/13/24 03:00 98.6 F 94 H 18 121/77 95 Room Air 07/12/24 23:00 97.7 F 87 18 110/74 94 Room Air 07/12/24 20:29 Room Air PG Care Time/CCT Total # of Minutes Spent Total Time Spent with Patient: Total time spent is greater than 50% in coordination of care (as documented) at patient's floor/unit and/or counseling patient: Coding Level of Care Code 45255 Post Operative Follow-Up Diagnoses Abdominal fluid collection R18.8
[2024-07-13] MEDS: POTASSIUM CHLORIDE CRTAB 20 MEQ TABCR PO STA (08:38)
[2024-07-13] MEDS ORDERED: FAMOTIDINE 20 MG TAB PO PRN (15:26)
--- NOTE | 2024-07-14 07:28 | Surgery Progress Note ---
Date of Service July 14, 2024 Assessment & Plan (1) Abdominal fluid collection: Plan: clinically improving. discussed removing alves...urology will see today. repeat ct scan tomorrow...anticipate home tomorrow with drain. cx's negative/cytology pending Admission and Anticipated Discharge Date Admission Date: July 08, 2024 Subjective pt seen. feeling fine. pain dramatically improved. dg diet. Physical Exam Physical Exam: alert. nad Gastrointestinal (Abdomen): soft. much improved. non-tender. Results & Data Vital Signs (Past 12 Hours) Vital Signs Temp Pulse Resp BP Pulse Ox O2 Del Method 07/13/24 20:01 37.0 C 93 H 18 116/74 96 Room Air 07/13/24 19:59 Room Air PG Care Time/CCT Total # of Minutes Spent Total Time Spent with Patient: Total time spent is greater than 50% in coordination of care (as documented) at patient's floor/unit and/or counseling patient: Coding Level of Care Code 42810 Post Operative Follow-Up Diagnoses Abdominal fluid collection R18.8
[2024-07-14 08:21] LABS: Basophils # (auto) 0.04 K/uL (0.00-0.20); Basophils % (auto) 0.4 %; Eosinophils # (auto) 0.28 K/uL (0.00-0.50); Eosinophils % (auto) 2.9 %; Hematocrit (blood only) 27.9 % (42.0-52.0); Hemoglobin 8.9 g/dl (14.0-18.0); Immature Granulocytes % (auto) 3.1 %; Lymphocytes # (auto) 1.06 K/uL (1.20-3.40); Lymphocytes % (auto) 10.9 %; Mean Corpuscular Hemoglobin 29.6 pg (25.0-34.0); Mean Corpuscular Hgb Conc 31.9 g/dL (32.0-36.0); Mean Corpuscular Volume 92.7 fL (80.0-100.0); Mean Platelet Volume 8.8 fL (9.4-12.4); Monocytes # (auto) 0.73 K/uL (0.11-0.59); Monocytes % (auto) 7.5 %; Neutrophils # (auto) 7.33 K/uL (1.40-6.50); Neutrophils % (auto) 75.2 %; Platelet Count 353 K/uL (130-400); RDW Coefficient of Variation 15.9 % (11.5-14.5); RDW Standard Deviation 53.3 fL (36.4-46.3); Red Blood Count 3.01 M/uL (4.70-6.10); White Blood Count 9.74 K/ul (4.8-10.8)
[2024-07-14 08:28] LABS: BUN Creatinine Ratio 7.4 (10-20); Calcium 8.3 mg/dl (8.6-10.3); Creatinine Clr Calc Pharmacy 86.4 ml/min; Potassium 3.2 mmol/L (3.5-5.1)
[2024-07-14] MEDS: POTASSIUM CHLORIDE CRTAB 20 MEQ TABCR PO STA (08:54)
--- NOTE | 2024-07-14 10:02 | Urology Progress Note ---
Date of Service July 14, 2024 Assessment & Plan (1) Acute urinary retention: Plan: Follow-up of urinary retention Rasmussen catheter was placed by Dr. Alston on 07/10/2024 Patient reports issues with Rasmussen yesterday Nursing flushed/irrigated catheter and it has been draining appropriately since then Rasmussen patent and draining appropriately at this time General surgery is planning for discharge tomorrow Rasmussen catheter can be removed today for voiding trial per Dr. Alston Monitor for void and check bladder scan prn If he is unable to void or has elevated PVRs, then recommend replace catheter Continue management of abdominal fluid collection per general surgery team will sign off, recall as needed Admission and Anticipated Discharge Date Admission Date: July 08, 2024 Subjective Patient seen and examined at bedside this morning. He is awake and resting in bed. He reports issues with his Rasmussen catheter yesterday. He was having significant bladder pressure and discomfort. He reports that his nurse flushed his catheter. Rasmussen catheter draining appropriately after being irrigated. Denies bladder pain or discomfort at this time. Review of Systems Constitutional: as per Subjective / HPI Genitourinary: + as per Subjective / HPI Physical Exam Constitutional: no acute distress Respiratory: normal respiratory effort; no respiratory distress and no labored breathing Gastrointestinal (Abdomen): Inspection/Auscultation: abdomen not distended IR drain intact Musculoskeletal: Head/Neck/Chest: normocephalic Neurologic: moves all extremities and awake Psychiatric: Orientation: alert and oriented x 3 Genitourinary: Rasmussen patent and draining yellow urine Results & Data Vital Signs (Past 12 Hours) Vital Signs Temp Pulse Resp BP Pulse Ox O2 Del Method 07/14/24 08:24 36.6 C 85 18 110/70 96 Room Air PG Care Time/CCT Total # of Minutes Spent Total Time Spent with Patient: Total time spent is greater than 50% in coordination of care (as documented) at patient's floor/unit and/or counseling patient: Coding Level of Care Code 23348 SUB INP/OBS CARE 25MIN Diagnoses Acute urinary retention R33.8
[2024-07-15] MEDS: OPTIRAY 320 100ml IV ONE (07:56)
--- NOTE | 2024-07-15 08:36 | CT Scan Report ---
CT OF THE ABDOMEN AND PELVIS WITH CONTRAST CLINICAL HISTORY: Intra-abdominal fluid collection. COMPARISON STUDY: CT of the abdomen and pelvis July 08, 2024. TECHNIQUE: Following IV administration of 94 mL of Optiray, axial images of the abdomen and pelvis we re obtained from the lung bases to the proximal femurs. Images were reviewed in the axial, sagittal, and coronal planes. IV contrast was administered without complication. Automated exposure control wa s utilized for the study. A dose lowering technique was utilized adhering to the principles of ALARA . Oral contrast was administered. CT DOSE: 1220.28 mGy.cm FINDINGS: Trace right pleural effusion. There is mild right lower lobe groundglass opacity. Several s egmental and subsegmental pulmonary emboli within the lower lungs are new since chest CT of April 08, 2024. There are emboli within the left lower lobe, lingular and right middle lobe. No pneumatosi s, free air or portal venous gas is present. The previously described thick-walled right abdominal fl uid collection has decreased in size since CT of July 08, 2024. This now measures 14 x 13.5 x 11. 4 cm, previously 21 x 18 x 16.4 cm. Note is again made of a fat fluid level within this collection. S tranding adjacent to the collection is again noted. Wall thickening of several adjacent small bowel l oops is noted. There is no evidence for a bowel obstruction. There is colonic diverticulosis without evidence for acute diverticulitis. Postoperative findings consistent with right hemicolectomy. Gwen us mildly enlarged ileocolic lymph nodes measure up to 1.6 x 1 cm. No additional fluid collections ar e present. A small amount of fluid within the pelvis is noted. The spleen, adrenal glands, liver, kid neys and pancreas are unremarkable. IMPRESSION: 1. Interval development of several segmental and subsegmental pulmonary emboli within the lower lungs . Trace right pleural effusion. Subpleural right lower lobe opacity favors atelectasis although a dev eloping pulmonary infarct could appear similar. This finding will be called/faxed to the ordering pro vider at time of dictation. 2. Moderate decrease in size of the right abdominal fluid collection following drain placement. Given fat fluid level, a chyloma is within the differential. Superimposed infection cannot be excluded giv en adjacent stranding. 3. Multiple mildly enlarged ileocolic lymph nodes. These may be reactive however a follow-up CT in 3 months to ensure resolution is recommended. 4. Status post right hemicolectomy. No evidence for a bowel obstruction. Wall thickening of several s mall bowel loops adjacent to the collection is likely reactive. ACT 112: Negative or not required by law. Electronically signed by: Yves Mendoza M.D. 07/15/2024 8:34 AM
[2024-07-15 08:55] LABS: Basophils # (auto) 0.03 K/uL (0.00-0.20); Basophils % (auto) 0.3 %; Eosinophils # (auto) 0.23 K/uL (0.00-0.50); Hematocrit (blood only) 30.1 % (42.0-52.0); Hemoglobin 9.3 g/dl (14.0-18.0); Immature Granulocytes # (auto) 0.47 K/uL (0.01-0.20); Immature Granulocytes % (auto) 4.1 %; Lymphocytes # (auto) 1.46 K/uL (1.20-3.40); Lymphocytes % (auto) 12.8 %; Mean Corpuscular Hgb Conc 30.9 g/dL (32.0-36.0); Mean Corpuscular Volume 93.8 fL (80.0-100.0); Mean Platelet Volume 8.6 fL (9.4-12.4); Monocytes # (auto) 0.73 K/uL (0.11-0.59); Monocytes % (auto) 6.4 %; Neutrophils # (auto) 8.45 K/uL (1.40-6.50); Neutrophils % (auto) 74.4 %; Nucleated RBC # (auto) 0.02 K/uL (0.00-0.12); Nucleated RBC % (auto) 0.2 %; Platelet Count 373 K/uL (130-400); RDW Coefficient of Variation 15.7 % (11.5-14.5); RDW Standard Deviation 53.8 fL (36.4-46.3); Red Blood Count 3.21 M/uL (4.70-6.10); White Blood Count 11.37 K/ul (4.8-10.8)
[2024-07-15 09:04] LABS: BUN Creatinine Ratio 6.4 (10-20); Calcium 8.6 mg/dl (8.6-10.3); Creatinine Clr Calc Pharmacy 86.4 ml/min; Potassium 3.3 mmol/L (3.5-5.1)
--- NOTE | 2024-07-15 09:06 | Surgery Progress Note ---
Date of Service July 15, 2024 Assessment & Plan (1) Abdominal fluid collection: Plan: pt with IR drain in post surgical fluid collection Repeat CT this AM , showing decrease in size WBC slightly increased to 11 , continue IV antibiotics in house , will switch to PO on D/c Concerns for PE on CT scan, reconsulted hospitalist regarding this pt saturating 97 % on RA pt desires d/c today , pending hospitalist recommendations Will need f/u o/p next week with Dr Durbin nursing to teach pt how to care for IR drain on D/C Pt seen and exmained with Dr Durbin as above. looks/feels much better. fluid collection smaller will await input from medicine regarding the PE's...ok for d/c from surgery standpoint. Admission and Anticipated Discharge Date Admission Date: July 08, 2024 Subjective abdominal discomfort less no complaints tolerating diet Review of Systems Constitutional: no fever and no chills Respiratory: no dyspnea Cardiovascular: no chest pain Gastrointestinal: no abdominal pain, no nausea and no vomiting Genitourinary: + urinary hesitancy Psychiatric: no confusion Physical Exam Constitutional: cooperative and comfortable; no acute distress Respiratory: normal respiratory effort and able to speak in complete sentences; no respiratory distress Cardiovascular: Rate/Rhythm: regular rate Gastrointestinal (Abdomen): Inspection/Auscultation: + abdominal surgical drain present Percussion/Palpation: abdomen soft Psychiatric: A+Ox3, euthymic affect Results & Data Vital Signs (Past 12 Hours) Vital Signs Temp Pulse Resp BP Pulse Ox O2 Del Method 07/15/24 08:24 98.1 F 80 14 114/76 97 Room Air 07/15/24 07:20 Room Air Results CBC w Diff Results: RBC 3.21 M/uL (4.70-6.10) L 07/15/24 WBC 11.37 K/ul (4.8-10.8) H 07/15/24 Hgb 9.3 g/dl (14.0-18.0) L 07/15/24 Hct 30.1 % (42.0-52.0) L 07/15/24 MCV 93.8 fL (80.0-100.0) 07/15/24 MCH 29.0 pg (25.0-34.0) 07/15/24 MCHC 30.9 g/dL (32.0-36.0) L 07/15/24 RDW Standard Deviation 53.8 fL (36.4-46.3) H 07/15/24 RDW Coefficient of Variation 15.7 % (11.5-14.5) H 07/15/24 Plt Count 373 K/uL (130-400) 07/15/24 MPV 8.6 fL (9.4-12.4) L 07/15/24 Nucleated Red Blood Cells % (auto) 0.2 % 07/15 Nucleated RBC Absolute Count (auto) 0.02 K/uL (0.00-0.12) 1 09/15/23 Neutrophils (%) (Auto) 74.4 % 07/15/24 Lymphocytes (%) (Auto) 12.8 % 07/15/24 Monocytes # (Auto) 0.73 K/uL (0.11-0.59) H 07/15/24 Eosinophils # (Auto) 0.23 K/uL (0.00-0.50) 07/15/24 Immature Granulocyte % (Auto) 4.1 % 07/15/24 Neutrophils # (Auto) 8.45 K/uL (1.40-6.50) H 07/15/24 Lymphocytes # (Auto) 1.46 K/uL (1.20-3.40) 07/15/24 Monocytes # (Auto) 0.73 K/uL (0.11-0.59) H 07/15/24 Eosinophils # (Auto) 0.23 K/uL (0.00-0.50) 07/15/24 Basophils # (Auto) 0.03 K/uL (0.00-0.20) 07/15/24 Immature Granulocyte # (Auto) 0.47 K/uL (0.01-0.20) H 07/15 ANC 14.00 K/uL (1.4-6.5) H 07/09/24 ALC 1.98 K/uL (1.2-3.4) 07/09/24 Neutrophils % (Manual) 85 % 07/09/24 Lymphocytes % (Manual) 12 % 07/09/24 Monocytes % (Manual) 3 % 07/09/24 Neutrophils # (Manual) 14.00 K/uL (1.40-6.50) H 07/09/24 Lymphocytes # (Manual) 1.98 K/uL (1.2-3.4) 07/09/24 Monocytes # (Manual) 0.49 K/uL (0.11-0.59) 07/09/24 Hypersegmented Neutrophils 1+ 02/15/24 Polychromasia 1+ 07/09/24 Echinocytes 1+ 05/29/22 Anisocytosis Present 02/15/24 Macrocytosis Present 04/27/24 Tear Drop Cells 1+ 07/09/24 Ovalocytes 1+ 07/09/24 Dohle Bodies 1+ 01/12/23 PG Care Time/CCT Total # of Minutes Spent Total Time Spent with Patient: Total time spent is greater than 50% in coordination of care (as documented) at patient's floor/unit and/or counseling patient: Coding Level of Care Code 50413 Post Operative Follow-Up Diagnoses Abdominal fluid collection R18.8
[2024-07-15 12:18] VITALS: BP 112/66; PULSE 74; RESP 16; TEMP 97.9; O2SAT 98
[2024-07-15] MEDS: POTASSIUM CHLORIDE CRTAB 20 MEQ TABCR PO STA (12:19)
[2024-07-15] MEDS: APIXABAN 5 MG TABLET PO ONE (12:20)
--- NOTE | 2024-07-15 15:59 | Discharge Summary ---
Date of Service July 15, 2024 Admission HPI Per Admitting Provider 68-year-old male here referred by myself from the office earlier today for right upper quadrant pain as well as back pain. He is 8 weeks status post laparoscopic right hemicolectomy for colon cancer. He had an essentially uncomplicated course. He denies nausea or vomiting. His bowels have been moving. He is afebrile. His white count is currently normal. His only symptoms really have been pain. CT scan reveals a large right sided fluid collection with internal debris. Principal Diagnosis intra abdominal fluid collection Discharge Exam Constitutional cooperative and comfortable; no acute distress Respiratory normal respiratory effort and able to speak in complete sentences; no respiratory distress Cardiovascular Rate/Rhythm: regular rate Gastrointestinal (Abdomen) Inspection/Auscultation: + abdominal surgical drain present Percussion/Palpation: abdomen soft Psychiatric A+Ox3, euthymic affect Discharge Data Allergies Allergy/AdvReac Type Severity Reaction Status Date / Time atorvastatin AdvReac Unknown muscle Verified 07/08/24 14:06 weakness Consultations 07/08/24 13:50 ED Decision to Admit Stat 07/10/24 13:14 Consult Hospitalist Routine 07/10/24 13:17 Consult Urology Routine Procedures Performed Operation Date: 07/08/24 16:25 Actual Procedures p Exploratory Laparotomy(Not Applicable) - Camden Durbin, DO Ordered Studies 07/08/24 11:12 CT Abd and Pelvis [CT abd pelvis IV con only] Stat CT angio chest PE protocol Stat 07/11/24 08:08 US venous duplex leg [US venous doppler LE LT] Urgent 07/12/24 07:[address] periton/retro w/gdnce Routine 07/15/24 07:00 CT Abd and Pelvis [CT abd pelvis oral and IV con] Routine Hospital Course (1) Abdominal fluid collection: Patient seen in office 07/08/[address] Durbin, he was sent to the ER 2/2 his symptoms. He underwent an abd/pelvis CT which was showing concerns for an abdominal abscess. Dr Durbin discussed the results of the CT scan with radiology and the Etiology of fluid collect was unclear. There was concern for a subclinical leak resulting in a contained perforation. The patient was not septic, however he was in reasonable discomfort and pain. On 07/08/24 there were no availability of interventional radiology. The patient underwent an exploratory laparotomy (see operative report for details). He was then admitted post operatively to the hospital and given IV fluids, antibiotics, and pain control. The hospitalist team and urology were consulted to assist with patient care. The patient was given a Rasmussen catheter per urology recommendations on 07/10/24. On 07/12/24 the patient went to radiology for an IR catheter placement to drain the intra abdominal fluids. The IR catheter drained 900ml immediately (see IR procedure note for full details). The IR drainage catheter was left in place and the fluid was sent for culture and cytology. The Rasmussen catheter was remove 07/14/24 and the patient was voiding on his own. The patient reported abdominal discomfort improvement, he was tolerating a regular diet. He went for a repeat CT scan of abd/pelvis on 07/15/24 which showed a decrease in the size of abdominal fluid collection. Although on the CT scan there was concern for pulmonary emboli. The hospitalist team was ask to re-evaluate the patient and the patient was deemed stable for discharge from their perspective and the patient was given a prescription for oral anticoagulation and advised to follow up outpatient with PCP. The patient showed no signs of respiratory distress, had no complaints of chest pain or shortness of breath, and his VS remained stable and WNL. The pharmacy was consulted for recommendation on oral antibiotics. On 07/15/24 the patient was deemed stable for discharge from a surgical perspective and was taught how to care for his IR drain and given a prescription for oral antibiotics for 2 weeks and narcotic pain medication. The patient was given discharge instructions, return precautions and follow up recommendations. All questions answered. Total Time Total Time Spent Total Time Spent (In Minutes): 35 Discharge Plan Discharge Items Patient Disposition: Home - Self-Care Reason For Visit: S/P EXP LAP Discharge Diagnosis: exploratory laparotomy drainage of abdominal fluid collection Activity: Per Instructions section Lifting: No more than 10 pounds Bathing Comment: may shower; no soaking in tubs/pools x 2 weeks Exercise/Sports: Wait until after follow-up appointment Driving/Machine Use: no driving while taking narcotics for pain Non-emergency contact: Surgeon Call non-emergency contact if: you have any medication questions, your symptoms worsen, your pain is not controlled, you have a fever, your temperature is above 101.5, your wound has increased redness, your wound has increased drainage and your wound pain has increased Follow-up/Referrals: Camden Durbin DO [Surgeon] - 07/25/24 2:00 pm (please call to schedule follow up in clinic within 1-2 weeks ) Stephane Fiore DO [Primary Care Provider] - 07/22/24 4:00 pm Diet: Low Fiber Addtl Attending Provider Instructions: SPECIAL CARE INSTRUCTIONS: * You have surgical atul in place. They will be removed at one of your follow up appointments. May cover daily and change dressing if you wish for comfort with dry gauze and medical tape * You may shower . NO soaking in pools or baths for 2 weeks * No lifting greater than 10lbs. No strenuous exercise until cleared by surgeon. Light walking is accepted. * No driving while taking narcotic pain medication; wait at least 3 days * No drinking alcohol while taking narcotic pain medication * Care for your drain as you have been instructed prior to discharge Continue all your antibiotics as directed * May use Ibuprofen/Tylenol over the counter for pain as tolerated. Do not exceed 3grams of Tylenol per 24 hours * Expect some swelling and bruising. * Diet- you may resume your regular diet Call your doctor if: * Temperature above 101 degrees, nausea/vomiting, fever/chills * Pain not relieved by pain medicine ordered * There is increased drainage or redness from any incision * You have any unanswered questions or concerns [phone]. FOLLOW UP VISIT: If not already scheduled, please call the office for a follow-up visit. Office Pending Studies at Discharge: Yes Stand-Alone Forms: My [facility], Smoking Cessation Medications and DC Order Prescriptions: New oxycodone 5 mg tablet 5 - 10 mg PO .[id number] PRN (Reason: pain, for initial therapy, max 6 tabs per day) Qty: 15 0RF Eliquis 5 mg tablet 5 mg PO BID Qty: 70 0RF Rx Instructions: 10mg (2 pills) bid x 7 days, then 1 pill (5mg) po bid amoxicillin-pot clavulanate 875-125 mg tablet 1 tab PO Q12H 14 Days Qty: 28 0RF Continued [place] [employer]-3 Krill Oil 998-10-66-50 mg capsule 1 cap PO QAM sildenafil (pulm.hypertension) 20 mg tablet 20 mg PO ONCE PRN (Reason: sexual activity) Qty: 30 5RF Rx Instructions: Take 1-5 tablets approx 1 hour prior to activity. Avoid large or heavy meals for maximum effectiveness. levothyroxine 75 mcg tablet 75 mcg PO QAM Qty: 90 3RF telmisartan 20 mg tablet 20 mg PO QAM 90 Days Qty: 90 3RF rosuvastatin 5 mg tablet 5 mg PO HS Qty: 90 3RF Rx Instructions: TAKE 1 TABLET AT BEDTIME famotidine 20 mg tablet 20 mg PO UD PRN (Reason: Acid Reflux) coQ10 (ubiquinol) 100 mg capsule 100 mg PO QAM folic acid 1 mg tablet 1 mg PO DAILY celecoxib [Celebrex] 200 mg capsule 200 mg PO BID cholecalciferol (vitamin D3) [Vitamin D3] 125 mcg (5,000 unit) Tablet 125 mcg PO QAM melatonin 5 mg Tablet,Chewable 5 mg PO HS PRN (Reason: Sleep) ondansetron 4 mg tablet,disintegrating 4 mg PO Q6H PRN (Reason: nausea and vomiting) Qty: 20 0RF magnesium 250 mg Tablet 250 mg PO DAILY hydroxyurea 500 mg capsule 0 mg PO UD Hold Instructions: Resume on 06/10/24. HOLD medication until your follow up with Dr. Durbin and he states you may resume this medication Rx Instructions: Currently on hold per pt: Original Directions 1000mg M// and 500mg Tu/Th/Sat/Sun aspirin 81 mg Capsule 81 mg PO QAM meclizine 12.5 mg tablet 12.5 - 25 mg PO TID PRN (Reason: dizziness) Patient Comments: rare use Rx Instructions: 1 to 2 tablets PO three times a day PRN; omeprazole 20 mg capsule,delayed release(DR/EC) 40 mg PO DAILY PRN (Reason: gerd) Discharge Orders: Discharge Order (Routine); Ordered 07/15/24 Ordered By: Everardo De La Torre Admission Data Admit Date/Time: 07/08/24 17:44 Attending Provider: Camden Durbin Admit Provider: Camden Durbin Primary Care Provider: Stephane Fiore Other Providers: Hever Alston Other Interventions: Discharge Summary Assessment (RN) Last Done: 07/15/24 13:41 Supervising Physician Co-Signing Physician Notes I have seen and examined this patient this am with the surgical team. I agree with this plan. Coding Level of Care Code 09211 INP/OBS DISCH >30 MIN Diagnoses Abdominal fluid collection R18.8
--- NOTE | 2024-07-15 18:01 | Hospitalist Progress Note ---
Date of Service July 15, 2024 Assessment & Plan (1) Pulmonary embolism: Plan: fortunately appears to be entirely asymptomatic, clots likely provoked given major abdominal surgery and prolonged hospital stay. Discussed all of this with patient extensively. Would favor anticoagulating at least for 3 months (6 if he shows any symptomsbut given how good he looks right now, probably 3 months will suffice). Initiated Eliquis. Educated on risk/benefit of anticoagulation and what to watch for as far as any worrisome bleeding. PCP follow-up. Does appear safe/stable for home from this perspective. Surgical team informed. Admission and Anticipated Discharge Date Admission Date: July 08, 2024 Subjective surgical team reached out and asked for reevaluation due to pulmonary emboli incidentally found on follow-up CT abdomen pelvis. Reviewed CTagree with radiology they do appear to be real. Patient seen and examined and denies any chest pain shortness of breath or other characteristic symptoms. He is hoping to go home. Review of Systems Review of Systems: All systems reviewed & are unremarkable except as noted in HPI & below Physical Exam Physical Exam: General he is awake and alert pleasant no distress. HEENT normocephalic atraumatic mucous membranes moist. Breathing unlabored no accessory muscle use good effort. Skin shows no rashes no pallor or icterus. Neuro without focal deficits. Results & Data Results & Data Vital Signs (Past 12 Hours) Vital Signs Temp Pulse Pulse Resp BP Pulse Ox O2 Del Method 07/15/24 13:41 97.9 F 74 80 16 112/66 98 07/15/24 12:16 97.9 F 74 16 112/66 98 Room Air 07/15/24 08:24 98.1 F 80 14 114/76 97 Room Air 07/15/24 07:20 Room Air PG Care Time/CCT Total # of Minutes Spent Total Time Spent with Patient: Total time spent is greater than 50% in coordination of care (as documented) at patient's floor/unit and/or counseling patient: Coding Level of Care Code 68505 SUB INP/OBS CARE 3/50MIN Diagnoses Pulmonary embolism I26.99
--- NOTE | 2024-07-17 13:07 | Coding Query ---
PATHOLOGY To promote full compliance with coding requirements relating to patient care, physician participation is requested in all cases of rental agent uncertainty. Please assist us with the question(s) below: Please review the Pathology report and please document any relevant diagnosis(es) below: Pt adm with abdominal pain, fluid collection. CT guided bx now finaled. Please document, if known or suspected, the etiology of the abdominal fluid collection. Thanks for your help! Diagnosis(es): the etiology is truly unknown. Thank you MIRTA Jo [facility]
== END 2024-07-15 14:59 | disposition home or self-care (01) | DRG 939 ==
LOC: ED 10:27 → PACUINP 17:44 → 3N 19:50

== ENCOUNTER 2024-12-15 17:29 | Inpatient (IN) ==
[2024-12-15 18:12] LABS: Hematocrit (blood only) 37.8 % (42.0-52.0); Hemoglobin 12.7 g/dl (14.0-18.0); Mean Corpuscular Hemoglobin 29.1 pg (25.0-34.0); Mean Corpuscular Hgb Conc 33.6 g/dL (32.0-36.0); Mean Corpuscular Volume 86.7 fL (80.0-100.0); Mean Platelet Volume 8.6 fL (9.4-12.4); Platelet Count 506 K/uL (130-400); RDW Coefficient of Variation 15.7 % (11.5-14.5); RDW Standard Deviation 49.4 fL (36.4-46.3); Red Blood Count 4.36 M/uL (4.70-6.10); White Blood Count 21.34 K/ul (4.8-10.8)
[2024-12-15 18:27] LABS: Albumin Globulin Ratio 0.8 (0.9-2); Albumin Level 3.9 gm/dl (3.4-5.0); BUN Creatinine Ratio 16.3 (10-20); Bilirubin,Total 1.5 mg/dl (0.2-1.0); Calcium 9.5 mg/dl (8.6-10.3); Creatinine Clr Calc Pharmacy 56.1 ml/min; Globulin 4.6 gm/dl (2.5-4.0); Potassium 4.5 mmol/L (3.5-5.1); Total Protein 8.5 gm/dl (6.0-8.3)
--- NOTE | 2024-12-15 18:48 | Emergency Department Note ---
ED DC CONDITION Conditon at Discharge Condition at Discharge: Serious Impression & Plan Intra-abdominal abscess ED Provider Note Diagnosis: Intra-abdominal abscess Disposition: Admission CHIEF COMPLAINT: Abdominal pain HPI: Patient is a 68-year-old male presenting with complaint of generalized weakness and abdominal pain. Patient states that his symptoms have started since Thursday. Patient states he only recently went back to work full-time and full capabilities and thought he just had overdone it over the past 2 days time. Patient states however over the past day he has felt abdominal pain that radiates to his back. Patient very concerned because over the winter he had sustained a abdominal abscess that needed IR drainage. Patient worried that this has recurred. Patient states that he is currently being treated for urinary tract infection and originally was on Augmentin and then switched to a sulfur antibiotic. PAST MEDICAL HISTORY: See Below PAST SURGICAL HISTORY: See Below SOCIAL HISTORY: See Below HOME MEDICATIONS: See Below ALLERGIES: See Below VITALS: See Below PHYSICAL EXAMINATION: GENERAL: Well appearing, well nourished, NAD, non-toxic. EYE EXAM: Normal conjunctiva. OROPHARYNX: Moist mucus membranes. Grossly normal dentition. NECK: Supple, LUNGS: Clear to auscultation. Normal chest wall mechanics. HEART: NSR ABDOMEN: Abdomen soft, diffuse tenderness BACK: No CVA TTP. SKIN: No rashes and no bruising. UPPER EXTREMITIES: Upper extremities are grossly normal LOWER EXTREMITIES: Grossly normal, no edema. NEURO EXAM: A&O x3,, normal speech, moves all 4 extremities PSYCH: Cooperative MEDICAL DECISION MAKING: History obtained from: Patient ER Course: Patient 68-year-old male presenting with history of prior intra-abdominal abscess requiring IR drainage and antibiotics. Patient reports that he has been having abdominal pain weakness and feels worried that it is recurred. Patient has a leukocytosis in the 20s today. Patient had lactate and blood cultures drawn. Patient's lactate is not elevated. Patient given IV fluids and broad- spectrum antibiotics. Patient CT of abdomen pelvis shows intra-abdominal abscess present. Patient admitted to medicine service with consultation with surgery. Labs (independently interpreted) are significant for: Leukocytosis Medications given: Zosyn, vancomycin Consultants: Physician ward assistant from general surgery team been came down evaluated patient okay with keeping them at our facility and consult with medicine team as the admitting team. Discussion with medicine service accepts patient to their service further treatment and evaluation Triage Nursing notes reviewed and agree them. 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 Valera H/O exploratory laparotomy (07/08/24) Exploratory Laparotomy(Not Applicable) - [place] Durbin DO Pulmonary embolism Abdominal fluid collection Allergic rhinitis Hypercholesteremia H/O right hemicolectomy (05/12/24) Laparoscopic Right Hemicolectomy(Right) - [place] Durbin DO History of laparoscopic cholecystectomy Abdominal lymphadenopathy Erectile dysfunction Hypothyroidism Hypercholesteremia Hypertension Medical History Polycythemia Constipation Arthritis Elevated bilirubin Acute urinary retention Abdominal fluid collection Back pain Abdominal pain Right-sided thoracic back pain Encounter for pre-operative examination Chronic anemia Hypercholesteremia Anxiety Myelofibrosis Colon cancer (03/2024) Erectile dysfunction Hypertension Constipation History of prostate cancer Dx 2020, s/p prostatectomy Back problem Syncope Remote hx s/p unremarkable holter, no recent issues Male stress incontinence Osteoarthritis Acid reflux History of duodenal ulcer Remote hx in early Diverticular disease Tinnitus Hypothyroidism Myalgia chronic Surgical History History of colonoscopy [facility] (02/2024) Hx laparoscopic cholecystectomy 2022 History of robot-assisted laparoscopic radical prostatectomy Robotic laparoscopic radial retropubic prostatectomy, pelvic lymph node dissection (03/21/21): Grade view 2, MAC#3, ETT 7.[address] [facility] History of esophagogastroduodenoscopy (EGD) History of wisdom tooth extraction History of prostate biopsy Family History Brother Carotid artery disease Heart disease H/O cardiac surgery Mother Diabetes Stroke Father , 81yo Heart disease Cardiac stent Arthritis Aunt Diabetes Grandfather Heart disease Family/Other Hypertension Other No family history of adverse response to anesthesia Denies family history of Ovarian cancer Prostate cancer Breast cancer Colorectal cancer Social History Smoking Status: Never smoker Second Hand Exposure: No; Do You Dip or Chew Tobacco: No; Hx Alcohol Use: No Hx Substance Use: No Preferred Language: Nepali Communication Ability: Effective Visual Impairment: No Limitations Hearing Ability: Normal Assistant Professor Of Surgery Required: No Beliefs That Will Affect Care: None marital status: Current Living Situation: Spouse current occupational status: employed and unemployed 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, 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 [employer] How many Children do You have: 4 Feels Safe at Home: Yes Diet: regular caffeine: No during the past year weight has: decreased > 10 lbs Dental Care, Regularly: Yes Seatbelt Use: always Sunscreen Use: Yes Assistive Devices: Walker Allergies Allergies Allergy/AdvReac Type Severity Reaction Status Date / Time atorvastatin AdvReac Unknown muscle Verified 09/12/24 11:52 weakness Home Meds Home Medications Medication Instructions Recorded Confirmed cholecalciferol (vitamin D3) 125 125 mcg PO QAM 03/26/21 12/15/24 mcg (5,000 unit) tablet (Vitamin D3) melatonin 5 mg chewable tablet 5 mg PO HS Sleep 03/26/21 12/15/24 coQ10 (ubiquinol) 100 mg capsule 100 mg PO QAM 09/04/21 12/15/24 krill 350 mg-omega-3 90 mg-dha 24 1 cap PO QAM 09/04/21 12/15/24 mg-epa 50 [id number] capsule (MegaRed [place]-3 Krill Oil) famotidine 20 mg tablet 20 mg PO UD PRN Acid Reflux 09/04/22 12/15/24 hydroxyurea 500 mg capsule 0 mg PO UD 03/02/24 12/15/24 meclizine 12.5 mg tablet 12.5 - 25 mg PO TID PRN dizziness 03/02/24 12/15/24 folic acid 1 mg tablet 1 mg PO QAM 05/20/24 12/15/24 cyanocobalamin (vitamin B-12) 500 500 mcg PO QAM 12/15/24 12/15/24 mcg tablet omeprazole 20 mg capsule,delayed 20 mg PO QAM gerd 12/15/24 12/15/24 release Previous Rx's Medication Instructions Recorded ondansetron 4 mg disintegrating 4 mg PO Q6H PRN nausea and 01/12/23 tablet vomiting #20 tabs sildenafil (pulm.hypertension) 20 20 mg PO ONCE PRN sexual activity 08/18/23 mg tablet #30 tabs rosuvastatin 5 mg tablet 5 mg PO HS #90 tabs 06/30/24 telmisartan 20 mg tablet 20 mg PO QAM 90 days #90 tabs 06/30/24 apixaban 5 mg tablet (Eliquis) 5 mg PO BID #60 tabs 09/27/24 levothyroxine 75 mcg tablet 75 mcg PO QAM #90 tabs 12/07/24 sulfamethoxazole 800 1 tab PO BID 7 days #14 tabs 12/12/24 mg-trimethoprim 160 mg tablet (Bactrim DS) Results & Data (ED) Vital Signs Vital Signs - 24 hr 12/15/24 17:34 12/15/24 19:23 12/15/24 19:25 Temperature 36.6 C Temperature Source Skin Pulse Rate 111 H 94 H Pulse Rate [Apical] 95 H Respiratory Rate 19 16 Respiratory Effort / Characteristics Non-Labored Spontaneous Non-Labored Spontaneous Respiratory Depth Normal Normal Respiratory Pattern Regular Regular Blood Pressure 121/74 Blood Pressure [Right Arm] 103/72 Blood Pressure Mean 89 Blood Pressure Mean [Right Arm] 82 Blood Pressure Position [Right Arm] Lying Pulse Oximetry 98 96 Oxygen Delivery Method Room Air Room Air Sepsis Recent Fever Within 48 Hours No Sepsis New/Unexplained Change in Mental Status N/A Sepsis Action Taken by Nursing No Action Required Laboratory Data 12/15/24 17:49 12/15/24 17:49 Lab Results 12/15/24 12/15/24 12/15/24 Range/Units 17:49 19:41 Unknown WBC 21.34 H (4.8-10.8) K/ul RBC 4.36 L (4.70-6.10) M/uL Hgb 12.7 L (14.0-18.0) g/dl Hct 37.8 L (42.0-52.0) % MCV 86.7 (80.0-100.0) fL MCH 29.1 (25.0-34.0) pg MCHC 33.6 (32.0-36.0) g/dL RDW Std Deviation 49.4 H (36.4-46.3) fL RDW Coeff of Jason 15.7 H (11.5-14.5) % Plt Count 506 H (130-400) K/uL MPV 8.6 L (9.4-12.4) fL Neutrophils % (Manual) 86 % Lymphocytes % (Manual) 12 % Monocytes % (Manual) 2 % Neutrophils # (Manual) 18.35 H (1.40-6.50) K/uL Total Absolute Neuts 18.35 H (1.4-6.5) K/uL Lymphocytes # (Manual) 2.56 (1.2-3.4) K/uL Total Abs Lymphocytes 2.56 (1.2-3.4) K/uL Monocytes # (Manual) 0.43 (0.11-0.59) K/uL Polychromasia 1+ Sodium 133 L (136-145) mmol/L Potassium 4.5 (3.5-5.1) mmol/L Chloride 100 (98-107) mmol/L Carbon Dioxide 24 (21-32) mmol/L Anion Gap 9 (3-11) BUN 24 H (6-23) mg/dl Creatinine 1.47 H (0.6-1.4) mg/dl Est Cr Clr Drug Dosing 56.1 ml/min eGFR 52.28 BUN/Creatinine Ratio 16.3 (10-20) Glucose 109 H (70-99(Fasting)) mg/dl Lactate 1.2 (0.4-2.0) mmol/L Calcium 9.5 (8.6-10.3) mg/dl Total Bilirubin 1.5 H (0.2-1.0) mg/dl AST 12 L (13-39) U/L ALT 10 (7-52) U/L Alkaline Phosphatase 111 H (34-104) U/L Total Protein 8.5 H (6.0-8.3) gm/dl Albumin 3.9 (3.4-5.0) gm/dl Globulin 4.6 H (2.5-4.0) gm/dl Albumin/Globulin Ratio 0.8 L (0.9-2) Lipase 21 (11-82) U/L Urine Color Yellow Urine Appearance Clear (Clear) Urine pH 6.0 (4.5-7.5) Ur Specific [place] 1.023 (1.000-1.030) Urine Protein Trace H (Negative) Urine Glucose (UA) Negative (Negative) Urine Ketones Trace H (Negative) Urine Blood Negative (Negative) Urine Nitrite Negative (Negative) Urine Bilirubin Negative (Negative) Urine Urobilinogen Positive H (Negative) Ur Leukocyte Esterase Trace H (Negative) Urine WBC (Auto) 0-5 (0-5) /hpf Urine RBC (Auto) 0-2 (0-2) /hpf U Hyaline Cast (Auto) 0-2 (0-2) /lpf U Epithel Cells (Auto) 0-2 (0-2) /hpf Urine Bacteria (Auto) None Seen (None Seen) Urine Comment Administered Medications Vancomycin HCl 1,750 mg/ (Sodium Chloride) 535 mls @ 200 mls/hr IV NOW ONE Stop: 12/15/24 23:01 Last Admin: 12/15/24 21:10 Dose: 200 mls/hr Documented By: Discontinued Medications Sodium Chloride (Nss) 1,000 mls @ 999 mls/hr IV .Q1H1M ONE Stop: 12/15/24 19:39 Last Infusion: 12/15/24 20:40 Dose: Infused Documented By: Admin: 12/15/24 19:19 Dose: 999 mls/hr Documented By: Piperacillin Sod/Tazobactam Sod (Zosyn) 4.5 gm in 100 mls @ 200 mls/hr IV NOW ONE; Protocol Stop: 12/15/24 20:50 Last Infusion: 12/15/24 21:24 Dose: Infused Documented By: Admin: 12/15/24 20:45 Dose: 200 mls/hr Documented By: LAURENCE Ioversol (Optiray 320 100ml) 93 ml IV ONCE ONE Stop: 12/15/24 19:10 Last Admin: 12/15/24 19:09 Dose: 93 ml Documented By: ROSENDA Morphine Sulfate (Morphine Sulfate 2 Mg/Ml Carp) 2 mg IV NOW STA Stop: 12/15/24 20:51 Last Admin: 12/15/24 21:10 Dose: 2 mg Documented By: Imaging Data Radiologist's Impression: Abdomen/Pelvis CT 12/15/24 18:39 EXAMINATION: Abdomen and pelvis CT with CLINICAL HISTORY: Lower abdominal pain, nausea PRIORS: 09/05/2024 TECHNIQUE: Contiguous axial images were obtained through the abdomen and pelvis with the use of intravenous contrast. Sagittal and coronal reformations are supplied. FINDINGS: Mild hypoventilatory change at the right lung base. A subhepatic complicated fluid collection is again noted inferior to the right lobe of the liver, image 37, series 2. This is approximately round in shape, well circumscribed with a smooth thin periphery and measures 8.3 cm in anteroposterior dimension by 7.7 cm in transverse dimension by 10.0 cm in craniocaudal dimension this compares to, measuring at a similar location, 12.4 x 11.3 x 14.2 cm. The fluid collection now consists of gas and minimally complicated fluid which compares to fat and fluid on the prior examination.. A surgical suture or calcification is present within the posterior wall, unchanged. The pigtail drainage catheter has been removed. Surgical suture noted in the transverse colon abutting the mass. Moderate mesenteric inflammatory change is present surrounding the fluid collection with multiple prominent lymph nodes present in the mesentery medial and inferior to this. No extraluminal gas or ascites. A large amount of formed stool and gas present throughout the colon. Ascending colon may be absent. The liver shows no enhancing mass. The spleen, stomach, adrenals, aorta and IVC are morphologically unremarkable. Moderate atherosclerotic disease of the abdominal aorta noted. Kidneys enhance symmetrically. Small nonpathologically enlarged lymph nodes present in the root of the mesentery. No retroperitoneal adenopathy. Calcification noted in the urinary bladder. Urinary bladder is under distended. Moderate bilateral inguinal hernias, left greater than right containing fat. Phleboliths noted in the pelvis. A prostate is not identified, likely surgically absent with coarse calcifications in the surgical bed. In bone windows, advanced degenerative change throughout the lumbar spine. IMPRESSION: Infrahepatic complicated fluid collection, containing fluid and gas, smaller in size with interval removal of percutaneous pigtail catheter. Mild regional mesenteric inflammatory change and prominent nonpathologically enlarged lymph nodes. ACT 112: Positive. There are findings on this examination that require communication between the performing entity and the patient following Patient Test Result Information Act ([place] ACT 112) guidelines. Electronically signed by Linda Rodriguez 12-15-2024 7:51 PM Discharge Plan Visit Data Chief Complaint: Flank Pain Stated Complaint: FRONT AND BACK PAIN RIGHT SIDE, NAUSEA ED Provider: Ilir Corbin Discharge Problem: Intra-abdominal abscess Condition: Fair Forms Stand Alone Forms: [employer] Prescriptions Prescriptions: No Action MegaRed [place]-3 Krill Oil [id number] mg capsule 1 cap PO QAM sildenafil (pulm.hypertension) 20 mg tablet 20 mg PO ONCE PRN (Reason: sexual activity) Qty: 30 5RF Rx Instructions: Take 1-5 tablets approx 1 hour prior to activity. Avoid large or heavy meals for maximum effectiveness. telmisartan 20 mg tablet 20 mg PO QAM 90 Days Qty: 90 3RF rosuvastatin 5 mg tablet 5 mg PO HS Qty: 90 3RF Rx Instructions: TAKE 1 TABLET AT BEDTIME Eliquis 5 mg tablet 5 mg PO BID Qty: 60 4RF levothyroxine 75 mcg tablet 75 mcg PO QAM Qty: 90 3RF sulfamethoxazole-trimethoprim [Bactrim DS] 800-160 mg tablet 1 tab PO BID 7 Days Qty: 14 0RF famotidine 20 mg tablet 20 mg PO UD PRN (Reason: Acid Reflux) coQ10 (ubiquinol) 100 mg capsule 100 mg PO QAM folic acid 1 mg tablet 1 mg PO QAM cholecalciferol (vitamin D3) [Vitamin D3] 125 mcg (5,000 unit) Tablet 125 mcg PO QAM melatonin 5 mg Tablet,Chewable 5 mg PO HS ondansetron 4 mg tablet,disintegrating 4 mg PO Q6H PRN (Reason: nausea and vomiting) Qty: 20 0RF cyanocobalamin (vitamin B-12) 500 mcg tablet 500 mcg PO QAM omeprazole 20 mg capsule,delayed release(DR/EC) 20 mg PO QAM hydroxyurea 500 mg capsule 0 mg PO UD Hold Instructions: Resume on 06/10/24. HOLD medication until your follow up with Dr. Durbin and he states you may resume this medication Rx Instructions: Currently on hold per pt: Original Directions 1000mg M/W/F and 500mg Tues/Thurs/Sat/Sun meclizine 12.5 mg tablet 12.5 - 25 mg PO TID PRN (Reason: dizziness) Patient Comments: rare use Rx Instructions: 1 to 2 tablets PO three times a day PRN; Referrals Referrals: Stephane Fiore DO [Primary Care Provider] -
[2024-12-15 18:51] LABS: ALC (manual) 2.56 K/uL (1.2-3.4); ANC (manual) 18.35 K/uL (1.4-6.5); Lymphocytes # (manual) 2.56 K/uL (1.2-3.4); Lymphocytes % (manual) 12 %; Monocytes # (manual) 0.43 K/uL (0.11-0.59); Monocytes % (manual) 2 %; Neutrophils # (manual) 18.35 K/uL (1.40-6.50); Neutrophils % (manual) 86 %; Polychromasia 1+
[2024-12-15 19:06] LABS: Appearance Urine Clear (Clear); Bacteria Urine Automated None Seen (None Seen); Bilirubin Urine Negative (Negative); Blood Urine Negative (Negative); Cast Urine Automated 0-2 /lpf (0-2); Color Urine Yellow; Epithelial Cell Urine Auto 0-2 /hpf (0-2); Glucose Urine UA Negative (Negative); Ketones Urine Trace (Negative); Leukocyte Esterase Urine Trace (Negative); Nitrite Urine Negative (Negative); Protein Urine Trace (Negative); RBC Urine Automated 0-2 /hpf (0-2); Specific Gravity Urine 1.023 (1.000-1.030); Urobilinogen Urine Positive (Negative); WBC Urine Automated 0-5 /hpf (0-5)
[2024-12-15] MEDS: OPTIRAY 320 100ml IV ONE (19:09)
[2024-12-15] MEDS: SODIUM CHLORIDE 0.9% 1,000 ML IV ONE ×2 (19:19→22:06)
--- NOTE | 2024-12-15 19:52 | CT Scan Report ---
EXAMINATION: Abdomen and pelvis CT with CLINICAL HISTORY: Lower abdominal pain, nausea PRIORS: 09/05/2024 TECHNIQUE: Contiguous axial images were obtained through the abdomen and pelvis with the use of intravenous contrast. Sagittal and coronal reformations are supplied. FINDINGS: Mild hypoventilatory change at the right lung base. A subhepatic complicated fluid collection is again noted inferior to the right lobe of the liver, image 37, series 2. This is approximately round in shape, well circumscribed with a smooth thin periphery and measures 8.3 cm in anteroposterior dimension by 7.7 cm in transverse dimension by 10.0 cm in craniocaudal dimension this compares to, measuring at a similar location, 12.4 x 11.3 x 14.2 cm. The fluid collection now consists of gas and minimally complicated fluid which compares to fat and fluid on the prior examination.. A surgical suture or calcification is present within the posterior wall, unchanged. The pigtail drainage catheter has been removed. Surgical suture noted in the transverse colon abutting the mass. Moderate mesenteric inflammatory change is present surrounding the fluid collection with multiple prominent lymph nodes present in the mesentery medial and inferior to this. No extraluminal gas or ascites. A large amount of formed stool and gas present throughout the colon. Ascending colon may be absent. The liver shows no enhancing mass. The spleen, stomach, adrenals, aorta and IVC are morphologically unremarkable. Moderate atherosclerotic disease of the abdominal aorta noted. Kidneys enhance symmetrically. Small nonpathologically enlarged lymph nodes present in the root of the mesentery. No retroperitoneal adenopathy. Calcification noted in the urinary bladder. Urinary bladder is under distended. Moderate bilateral inguinal hernias, left greater than right containing fat. Phleboliths noted in the pelvis. A prostate is not identified, likely surgically absent with coarse calcifications in the surgical bed. In bone windows, advanced degenerative change throughout the lumbar spine. IMPRESSION: Infrahepatic complicated fluid collection, containing fluid and gas, smaller in size with interval removal of percutaneous pigtail catheter. Mild regional mesenteric inflammatory change and prominent nonpathologically enlarged lymph nodes. ACT 112: Positive. There are findings on this examination that require communication between the performing entity and the patient following Patient Test Result Information Act ([place] ACT 112) guidelines. Electronically signed by Linda Rodriguez 12-15-2024 7:51 PM
[2024-12-15] MEDS ORDERED: VANCOMYCIN CONSULT ACTIVE PRN ×2 (20:21→23:42)
--- NOTE | 2024-12-15 20:37 | History & Physical Report ---
Date of Service December 15, 2024 Assessment & Plan (1) Sepsis: (2) Intra-abdominal abscess: (3) UTI (urinary tract infection): (4) Renal insufficiency, mild: Plan Patient is a 68-year-old male s/p hemicolectomy due to colon cancer last fall with complications resulting in an abscess drained by IR IR 2 months later, hypertension, prostate cancer s/p prostatectomy, hypothyroidism, HLD, history of PE. patient presented due to abdominal pain and weakness and was found to have infrahepatic fluid collection; does meet SIRS criteria with white count 21.34 and tachycardia (HR 111). #Sepsis/abdominal abscess - History of hemicolectomy (05/12/24) and previous abscess requiring drainage by IR (07/12/24) after ex lap (07/08/24). AP CT showed infrahepatic collection complicated fluid collection, surrounding lymphadenopathy. LFTs reveal mildly elevated alkaline phos, 111. + SIRS: WBC 21.34 with neutrophil predominance, hypotensive 103/72, tachycardic 111. Lactate negative, 1.2. Afebrile. - Sepsis fluid bolus for ideal body weight = 2263.50; given 1L NSS in ED - will complete sepsis fluid bolus of 1.25 L NSS followed gentle resuscitation with by LR @ 125 ml/hr - ABX coverage with Vancomycin and Zosyn -renally dose vancomycin to q12h - Blood cultures ordered - Trend CBC - IV Tylenol and Morphine as needed for pain; avoid Toradol with increased creatinine - Zosyn as needed - N.p.o. after midnight - General Surgery team consulted; may require drainage by IR, holding Eliquis (last dose 12/15 AM) #UTI - outpatient tx with Bactrim started 12/12 - Culture 12/05 grew pansensitive Proteus mirabilis - urine culture sent however UA does not appear infectious and already several days of abx treatment - Hold Bactrim with antibiotic coverage as above Suspect component of obstruction based off patient's symptoms, has urology appointment with Dr. Alston mid January, could consider cystoscopy - bladder scan prn #renal insufficiency - Suspect 2/2 hypovolemia and poor perfusion with hypotension. Does not meet criteria for ALINA given CR increased from 1.02 to 1.47. BUN 24. - IV hydration as above - mag ordered - Trend BMP - discontinuing Bactrim (started 12/12) for UTI #Hyponatremia - suspect 2/2 poor po intake. Na 133. - NSS as above - trend BMP #HTN - hypotensive with sepsis above - hold telmisartan #GERD - with acid reflux on admission - IV PPI ordered x1 and daily #polycythemia vera with myeloproliferative neoplasm patient reports has been off oxygen hydroxyurea while on Eliquis - White count baseline around 11, elevated with above - plt count 506, baseline - continue to follow with heme/onc, Dr. Valera #Hx of PE - 07/15/24 during hospitalization likely provoked given major abdominal surgery, prolonged hospital stay, malignancy. Holding Eliquis with potential procedure Could consider decreasing dose of Eliquis/ continue discontinuing in near future to return back on hydroxyurea #Hypothyroidism - continue levothyroxine VTE ppx: SCDs; hold Eliquis with possible IR or surgical intervention Dispo: PCU Admission and Anticipated Discharge Date Admission Date: 12/15/24 History of Present Illness Chief Complaint: flank pain Primary Care Provider: Stephane Fiore DO Patient is a 68-year-old male s/p hemicolectomy due to colon cancer last fall with complications resulting in an abscess drained by IR IR 2 months later, hypertension, prostate cancer, hypothyroidism, HLD, history of PE. patient presented due to abdominal pain and weakness and was found to have infrahepatic fluid collection; does meet SIRS criteria with white count 21.34 and tachycardia (HR 111). Patient seen at bedside with his present via phone. He stated at the beginning of the week he developed right upper abdominal pain and back pain which then progressed to nausea and having a poor appetite; this felt exactly the same as to when he had an abscess before so he came in due to concern for this. He also endorses chills however denies any fever, dizziness, lightheadedness, chest pain, shortness of breath. No episodes of vomiting. He did think his nausea could have been secondary to the Bactrim he was started on for UTI. He has had a long history of urinary tract issues since admission in May. He stated he had a Rasmussen catheter that he believes has messed up his urinary tract, he has an appointment with Dr. Alston the urologist mid January. Patient frequently has waxing and waning urinary retention as well as recent hematuria. He completed a course of amoxicillin for UTI and then was transition to Bactrim, he spoke with someone over the phone for this (no documentation in chart). He started Bactrim Thursday evening however missed the dose today due to feeling nauseous. 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 He has been off hydroxyurea since May due to being on Eliquis, he is supposed to resume hydroxyurea in February, his symptoms of polycythemia vera have returned and he has occasional dizziness and vertigo. He denies nicotine or alcohol use. He will be due for his evening medications. He is having a acid reflux at bedside, PPI ordered. He stated he previously got extremely dry mouth when made n.p.o., mouth swabs ordered. Wishes to be full code. Allergies Allergy/AdvReac Type Severity Reaction Status Date / Time atorvastatin AdvReac Unknown muscle Verified 09/12/24 11:52 weakness Home Medications Medication Instructions Recorded Confirmed Type cholecalciferol (vitamin D3) 125 125 mcg PO QAM 03/26/21 12/15/24 History mcg (5,000 unit) tablet (Vitamin D3) melatonin 5 mg chewable tablet 5 mg PO HS Sleep 03/26/21 12/15/24 History coQ10 (ubiquinol) 100 mg capsule 100 mg PO QAM 09/04/21 12/15/24 History krill 350 mg-omega-3 90 mg-dha 24 1 cap PO QAM 09/04/21 12/15/24 History mg-epa 50 qo-[id number]-bsnqp capsule (MegaRed [place]-3 Krill Oil) famotidine 20 mg tablet 20 mg PO UD PRN Acid Reflux 09/04/22 12/15/24 History ondansetron 4 mg disintegrating 4 mg PO Q6H PRN nausea and 01/12/23 12/15/24 Rx tablet vomiting #20 tabs sildenafil (pulm.hypertension) 20 20 mg PO ONCE PRN sexual activity 08/18/23 12/15/24 Rx mg tablet #30 tabs hydroxyurea 500 mg capsule 0 mg PO UD 03/02/24 12/15/24 History meclizine 12.5 mg tablet 12.5 - 25 mg PO TID PRN dizziness 03/02/24 12/15/24 History folic acid 1 mg tablet 1 mg PO QAM 05/20/24 12/15/24 History rosuvastatin 5 mg tablet 5 mg PO HS #90 tabs 06/30/24 12/15/24 Rx telmisartan 20 mg tablet 20 mg PO QAM 90 days #90 tabs 06/30/24 12/15/24 Rx apixaban 5 mg tablet (Eliquis) 5 mg PO BID #60 tabs 09/27/24 12/15/24 Rx levothyroxine 75 mcg tablet 75 mcg PO QAM #90 tabs 12/07/24 12/15/24 Rx sulfamethoxazole 800 1 tab PO BID 7 days #14 tabs 12/12/24 12/15/24 Rx mg-trimethoprim 160 mg tablet (Bactrim DS) cyanocobalamin (vitamin B-12) 500 500 mcg PO QAM 12/15/24 12/15/24 History mcg tablet omeprazole 20 mg capsule,delayed 20 mg PO QAM gerd 12/15/24 12/15/24 History release Past Med/Surg History Problem List (Updated 12/15/24 @ 21:53 by Ivett Jorge PA-C) Renal insufficiency, mild UTI (urinary tract infection) Sepsis Intra-abdominal abscess (Acute) Hypomagnesemia Hypokalemia Urinary incontinence Polycythemia vera Dx 06/2023, w/myelofibrosis Follows with Dr. Valera H/O exploratory laparotomy (07/08/24) Exploratory Laparotomy(Not Applicable) - [place] Durbin DO Pulmonary embolism Abdominal fluid collection Allergic rhinitis Hypercholesteremia H/O right hemicolectomy (05/12/24) Laparoscopic Right Hemicolectomy(Right) - [place] Durbin DO History of laparoscopic cholecystectomy Abdominal lymphadenopathy Erectile dysfunction Hypothyroidism Hypercholesteremia Hypertension Medical History Polycythemia Constipation Arthritis Elevated bilirubin Acute urinary retention Abdominal fluid collection Back pain Abdominal pain Right-sided thoracic back pain Encounter for pre-operative examination Chronic anemia Hypercholesteremia Anxiety Myelofibrosis Colon cancer (03/2024) Erectile dysfunction Hypertension Constipation History of prostate cancer Dx 2020, s/p prostatectomy Back problem Syncope Remote hx s/p unremarkable holter, no recent issues Male stress incontinence Osteoarthritis Acid reflux History of duodenal ulcer Remote hx in early Diverticular disease Tinnitus Hypothyroidism Myalgia chronic Surgical History History of colonoscopy [facility] (02/2024) Hx laparoscopic cholecystectomy 2022 History of robot-assisted laparoscopic radical prostatectomy Robotic laparoscopic radial retropubic prostatectomy, pelvic lymph node dissection (03/21/21): Grade view 2, MAC#3, ETT 7.5 at [facility] History of esophagogastroduodenoscopy (EGD) History of wisdom tooth extraction History of prostate biopsy Family History Brother Carotid artery disease Heart disease H/O cardiac surgery Mother Diabetes Stroke Father , 81yo Heart disease Cardiac stent Arthritis Aunt Diabetes Grandfather Heart disease Family/Other Hypertension Other No family history of adverse response to anesthesia Denies family history of Ovarian cancer Prostate cancer Breast cancer Colorectal cancer Social History Smoking Status: Never smoker Second Hand Exposure: No; Do You Dip or Chew Tobacco: No; Hx Alcohol Use: No Hx Substance Use: No Preferred Language: Greek Communication Ability: Effective Visual Impairment: No Limitations Hearing Ability: Normal Sr Account Executive Required: No Beliefs That Will Affect Care: None marital status: Current Living Situation: Spouse current occupational status: employed and unemployed 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 Non-toxic appearing. HEENT- EOMI, mucous membranes moist. Hearing grossly intact. Heart-normal S1 and S2. No murmurs, rubs or gallops. Lungs-clear bilaterally, no respiratory distress, no accessory muscle use. Abdomen-normal bowel sounds and soft. No ascites noted. Tender RUQ. Extremities- no clubbing, cyanosis, or edema. Rheumatologic-normal range of motion. Psychiatric-normal affect. Results & Data Results & Data Vital Signs (Past 12 Hours) Vital Signs Temp Pulse Pulse Resp BP BP Pulse Ox 12/15/24 19:25 94 H 12/15/24 19:23 95 H 16 103/72 96 12/15/24 17:34 36.6 C 111 H 19 121/74 98 O2 Del Method 12/15/24 19:25 12/15/24 19:23 Room Air 12/15/24 17:34 Room Air Laboratory Results reviewed CBC, CMP, lactate, lipase, UA Diagnostic Findings reviewed AP CT Medications Administered EDZosyn 4.5 g iV, vancomycin IV, NSS 1L bolus ECG Additional Comments: ordered Code Status & VTE Plan Code Status full VTE Prophylaxis Plan VTE Prophylaxis will be ordered: Yes Supervising Physician Co-Signing Physician Notes patient seen and examined, chart reviewed, case discussed with MARTINA Jorge and I agree with the assessment and plan as document above. In brief, patient is a 68-year-old male status post hemicolectomy with subsequent development of intra- abdominal abscess requiring IR drainage returning with abdominal pain and weakness Patient with sepsis present on admission with leukocytosis WBC = 21.34, tachycardia with heart rate = 111 Most likely intra-abdominal source On physical exam he is afebrile, tachycardic, nontoxic in appearance Skinwarm, dry, intact, no rashes or lesions HEENTmoist mucous membranes, neck supple Heart+ S1, S2, regular, tachycardic, no murmur/rub/gallops LungsCTA anteriorly Abdomenpositive bowel sounds, soft, mildly tender but no rebound/guarding/peritonitis And labs and images reviewed Assessment/[id number] male presenting with sepsis, evidence of intra- abdominal abscess Appreciate general surgery consultation. May need IR consult for possible drainage Continue vancomycin and Zosyn, broad coverage Follow cultures Pain control with Tylenol, morphine as needed Keep patient n.p.o. after midnight Continue IV fluids Remainder as above PG Care Time/CCT Total # of Minutes Spent Total Time Spent with Patient: Total time spent is greater than 50% in coordination of care (as documented) at patient's floor/unit and/or counseling patient: Coding Level of Care Code 29855 INT INP/OBS CARE 3/75MIN Diagnoses Sepsis A41.9 Intra-abdominal abscess K65.1 UTI (urinary tract infection) N39.0 Renal insufficiency, mild N28.9
[2024-12-15] MEDS: PIPERACILLIN/TAZOBACTAM 4.5 GM/100 ML BAG IV ONE (20:45)
--- NOTE | 2024-12-15 20:50 | Surgery Consultation ---
Date of Consultation December 15, 2024 Assessment & Plan (1) Abdominal fluid collection: I discussed with the treating emergency room physician and the patient is being admitted on the hospitalist service from a surgical perspective we recommend the following: Provide analgesics Provide antiemetics Provide gentle fluid for hydration Follow serial labs Treating emergency room physician has initiated broad-spectrum antibiotics in form of Zosyn and vancomycin which should continue Blood cultures have been sent and the results of these will be followed for and antibiotics were adjusted accordingly Would recommend making the patient n.p.o. after midnight As the patient has a persistent fluid collection the question will be whether patient requires additional sampling of this fluid collection. We may consider enlisting the help of our interventional radiology colleagues to see if a percutaneous procedure can be performed to obtain a sample of this for additional cytology or culture as well as drain placement. The patient does take Eliquis for history of pulmonary emboli and this should be held if clinically feasible Additional recommendations to be forthcoming based on his clinical course as it unfolds History of Present Illness Reason for Consultation: Subhepatic fluid collection History of Present Illness This is a 68-year-old male known to [facility] group general surgery. On 05/02/2024 Dr. Durbin performed a laparoscopic assisted right hemicolectomy. The patient did reasonably well after the surgery however he required readmission to the hospital on 07/08/2024 as patient had a CT scan abdomen pelvis on 07/08/2024 that showed patient had development of a large fat fluid collection in the right hemiabdomen. Because of this fluid collection there is concern the patient may have had an anastomotic leak so he was taken to the operating room for exploratory surgery on 07/08/2024. During this surgery there was no evidence of anastomotic leak. The fat/fluid collection noted on CT scan was unable to be resected safely and therefore the patient's surgery was concluded. Following the surgery interventional radiology was consulted and patient had a biopsy and also percutaneous drains placed on 07/12/2024. Cytology from this biopsy was negative for malignancy and microbiology grew P fragilis as well as acute cutibacterium. The patient says that he had his drain removed in July 2024 at which time he had antibiotics that he was taking conclude. He did follow-up with Dr. Durbin in August [address] scan was ordered. He did undergo this repeat CT scan on 09/05/2024 that again showed a well-defined subhepatic fluid collection which was concerning for a possible abscess. The patient did present to the emergency department today as over the past several days he has had decreased appetite and nausea without vomiting. He also notes some right-sided flank and abdominal pain. He did not check his temp erature but he did have occasional shakes and chills and generally feels weak and tired. He notes that he has not had any change in bowel habits. He does report that he has recently been treated for urinary tract infection and was treated with amoxicillin but this has been switched to Bactrim.(Urine culture from 12/05/2024 shows the patient has a Proteus mirabilis urinary tract infection which is pansensitive) Since arrival to the emergency department today the patient has had labs and imaging which I independently reviewed. A CT scan of the abdomen pelvis showed the patient had an infrahepatic complicated fluid collection which contained fluid and gas. This collection measured approximately 12.4 x 11.3 x 14.2 cm. (Of note the patient did have a CT scan of the abdomen pelvis performed on 09/05/2024 that showed a similar subhepatic fluid collection measuring 13.9 x 10.3 x 12.3 cm). Labs including CBC were white blood cell count was elevated at 21.3. Hemoglobin and hematocrit are 12.7 and 37.8. Platelet count is 506,000. Chemistry profile showed sodium was 133 with a potassium of 4.5. BUN and creatinine were 24 and 1.4. The urinalysis showed trace leukocyte Estrace but was otherwise not indicative of infection. At the time of my interview he was resting comfortably in bed he was no distress. Allergies Allergy/AdvReac Type Severity Reaction Status Date / Time atorvastatin AdvReac Unknown muscle Verified 09/12/24 11:52 weakness Home Medications Medication Instructions Recorded Confirmed Type cholecalciferol (vitamin D3) 125 125 mcg PO QAM 03/26/21 09/12/24 History mcg (5,000 unit) tablet (Vitamin D3) melatonin 5 mg chewable tablet 5 mg PO HS PRN Sleep 03/26/21 09/12/24 History coQ10 (ubiquinol) 100 mg capsule 100 mg PO QAM 09/04/21 09/12/24 History krill 350 mg-omega-3 90 mg-dha 24 1 cap PO QAM 09/04/21 09/12/24 History mg-epa 50 mu-[id number]-vwdcg capsule (MegaRed [place]-3 Krill Oil) famotidine 20 mg tablet 20 mg PO UD PRN Acid Reflux 09/04/22 09/12/24 History ondansetron 4 mg disintegrating 4 mg PO Q6H PRN nausea and 01/12/23 09/12/24 Rx tablet vomiting #20 tabs sildenafil (pulm.hypertension) 20 20 mg PO ONCE PRN sexual activity 08/18/23 09/12/24 Rx mg tablet #30 tabs aspirin 81 mg capsule 81 mg PO QAM 03/02/24 09/12/24 History hydroxyurea 500 mg capsule 0 mg PO UD 03/02/24 09/12/24 History meclizine 12.5 mg tablet 12.5 - 25 mg PO TID PRN dizziness 03/02/24 09/12/24 History folic acid 1 mg tablet 1 mg PO DAILY 05/20/24 09/12/24 History celecoxib 200 mg capsule (Celebrex) 200 mg PO BID 06/15/24 09/12/24 History rosuvastatin 5 mg tablet 5 mg PO HS #90 tabs 06/30/24 09/12/24 Rx telmisartan 20 mg tablet 20 mg PO QAM 90 days #90 tabs 06/30/24 09/12/24 Rx magnesium 250 mg tablet 250 mg PO DAILY 07/08/24 09/12/24 History apixaban 5 mg tablet (Eliquis) 5 mg PO BID #60 tabs 09/27/24 Rx omeprazole 20 mg capsule,delayed 20 mg PO DAILY PRN gerd #90 caps 10/04/24 Rx release levothyroxine 75 mcg tablet 75 mcg PO QAM #90 tabs 12/07/24 Rx sulfamethoxazole 800 1 tab PO BID 7 days #14 tabs 12/12/24 Rx mg-trimethoprim 160 mg tablet (Bactrim DS) Patient History Medical History Polycythemia Constipation Arthritis Elevated bilirubin Acute urinary retention Abdominal fluid collection Back pain Abdominal pain Right-sided thoracic back pain Encounter for pre-operative examination Chronic anemia Hypercholesteremia Anxiety Myelofibrosis Colon cancer (03/2024) Erectile dysfunction Hypertension Constipation History of prostate cancer Dx 2020, s/p prostatectomy Back problem Syncope Remote hx s/p unremarkable holter, no recent issues Male stress incontinence Osteoarthritis Acid reflux History of duodenal ulcer Remote hx in early Diverticular disease Tinnitus Hypothyroidism Myalgia chronic Surgical History History of colonoscopy [facility] (02/2024) Hx laparoscopic cholecystectomy 2022 History of robot-assisted laparoscopic radical prostatectomy Robotic laparoscopic radial retropubic prostatectomy, pelvic lymph node dissection (03/21/21): Grade view 2, MAC#3, ETT 7.5 at [facility] History of esophagogastroduodenoscopy (EGD) History of wisdom tooth extraction History of prostate biopsy Family History Brother Carotid artery disease Heart disease H/O cardiac surgery Mother Diabetes Stroke Father , 81yo Heart disease Cardiac stent Arthritis Aunt Diabetes Grandfather Heart disease Family/Other Hypertension Other No family history of adverse response to anesthesia Denies family history of Ovarian cancer Prostate cancer Breast cancer Colorectal cancer Social History Smoking Status: Never smoker Second Hand Exposure: No; Do You Dip or Chew Tobacco: No; Hx Alcohol Use: No Hx Substance Use: No Preferred Language: Persian Communication Ability: Effective Visual Impairment: No Limitations Hearing Ability: Normal Cupola Charger Required: No Beliefs That Will Affect Care: None marital status: Current Living Situation: Spouse current occupational status: employed and unemployed 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, 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 [employer] How many Children do You have: 4 Feels Safe at Home: Yes Diet: regular caffeine: No during the past year weight has: decreased > 10 lbs Dental Care, Regularly: Yes Seatbelt Use: always Sunscreen Use: Yes Assistive Devices: Walker Review of Systems Review of Systems: All systems reviewed & are unremarkable except as noted in HPI & below Physical Exam Constitutional: WD/WN, vitals as above Eyes: no conjunctival abnormality ENMT: Ears: no hearing impairment and no external ear abnormality Mouth: no oropharynx abnormality Neck: trachea midline Respiratory: normal respiratory effort; no respiratory distress and no labored breathing Cardiovascular: Rate/Rhythm: regular rate and regular rhythm Vessels: dorsalis pedis pulses present and radial pulses present Gastrointestinal (Abdomen): Patient's abdomen is rotund but soft. It is nonrigid and there is no rebound tenderness or guarding. He had a well-healed midline incision without any open areas or areas of drainage. He did have some tenderness to palpation on the right side of his abdomen greatest in the right upper quadrant. He also did have some CVA tenderness with percussion on the right Musculoskeletal: No calf tenderness. Patient had trace to 1+ lower extremity edema bilaterally. Feet are warm and well-perfused Skin: no rashes Neurologic: moves all extremities Psychiatric: A+Ox3, euthymic affect Genitourinary: CVA tenderness noted with percussion on the right, not on the left Results & Data Vital Signs (Past 12 Hours) Vital Signs Temp Pulse Pulse Resp BP BP Pulse Ox 12/15/24 19: 94 H 12/15/24 19:23 95 H 16 103/72 96 12/15/24 17:34 36.6 C 111 H 19 121/74 98 O2 Del Method 12/15/24 19:25 12/15/24 19:23 Room Air 12/15/24 17:34 Room Air PG Care Time/CCT Total # of Minutes Spent Total Time Spent with Patient: Total time spent is greater than 50% in coordination of care (as documented) at patient's floor/unit and/or counseling patient: Coding Level of Care Code 38450 INT INP/OBS CARE 3/75MIN Diagnoses Abdominal fluid collection R18.8
[2024-12-15] MEDS: MoRPHine SULFATE 2 MG/ML CARP IV STA (21:10)
[2024-12-15] MEDS: VANCOMYCIN HCL 1,750 MG in SODIUM CHLORIDE 0.9% 500 ML IV ONE (21:10)
[2024-12-15] MEDS ORDERED: ACETAMINOPHEN 1,000 MG/100 ML VIAL IV PRN (21:42)
[2024-12-15] MEDS: PANTOprazole 40 MG/10 ML SYR IV ONE (22:03)
[2024-12-15] MEDS ORDERED: MoRPHine SULFATE 4 MG/ML 1 ML CARP\\VIAL IV PRN (23:42)
[2024-12-15] MEDS ORDERED: DOCUSATE SODIUM 100 MG CAP PO PRN (23:42)
[2024-12-15] MEDS ORDERED: MoRPHine SULFATE 2 MG/ML CARP IV PRN (23:42)
[2024-12-15] MEDS ORDERED: MELATONIN 3 MG TAB PO PRN (23:42)
[2024-12-15] MEDS ORDERED: NALOXONE HCL 0.4 MG/1 ML VIAL/CARP IV PRN (23:42)
[2024-12-15] MEDS ORDERED: ONDANSETRON INJ 2 MG/ML 2 ML VIAL IV PRN (23:42)
[2024-12-16] MEDS: SODIUM CHLORIDE 0.9% 250 ML IV ONE (00:37)
[2024-12-16] MEDS: LACTATED RINGER'S 1,000 ML IV SCH (01:05)
[2024-12-16] MEDS: ROSUVASTATIN CALCIUM 5 MG TAB PO SCH (01:05)
[2024-12-16] MEDS: PIPERACILLIN/TAZOBACTAM 4.5 GM/100 ML BAG IV SCH (01:16)
[2024-12-16] MEDS: LEVOTHYROXINE SODIUM 75 MCG TABLET PO SCH (05:25)
[2024-12-16 06:31] LABS: Hematocrit (blood only) 32.9 % (42.0-52.0); Hemoglobin 10.9 g/dl (14.0-18.0); Mean Corpuscular Hemoglobin 29.5 pg (25.0-34.0); Mean Corpuscular Hgb Conc 33.1 g/dL (32.0-36.0); Mean Corpuscular Volume 88.9 fL (80.0-100.0); Mean Platelet Volume 8.8 fL (9.4-12.4); Platelet Count 436 K/uL (130-400); RDW Coefficient of Variation 15.8 % (11.5-14.5); RDW Standard Deviation 51.1 fL (36.4-46.3); White Blood Count 14.72 K/ul (4.8-10.8)
[2024-12-16 06:56] LABS: Dohle Bodies 1+; Polychromasia 1+; Toxic Granulation 1+
[2024-12-16 07:04] LABS: BUN Creatinine Ratio 17.5 (10-20); Calcium 8.5 mg/dl (8.6-10.3); Creatinine Clr Calc Pharmacy 66.1 ml/min; Potassium 4.3 mmol/L (3.5-5.1)
--- NOTE | 2024-12-16 08:24 | Hospitalist Progress Note ---
Date of Service December 16, 2024 Assessment & Plan (1) Sepsis: (2) Intra-abdominal abscess: (3) UTI (urinary tract infection): (4) Renal insufficiency, mild: Plan Patient is a 68-year-old male s/p hemicolectomy due to colon cancer last fall with complications resulting in an abscess drained by IR IR 2 months later, hypertension, prostate cancer s/p prostatectomy, hypothyroidism, HLD, history of PE. patient presented due to abdominal pain and weakness and was found to have infrahepatic fluid collection; does meet SIRS criteria with white count 21.34 and tachycardia (HR 111). #Sepsis/abdominal abscess - History of hemicolectomy (05/12/24) and previous abscess requiring drainage by IR (07/12/24) after ex lap (07/08/24). - CT-A/P: infrahepatic collection complicated fluid collection, surrounding lymphadenopathy. LFTs reveal mildly elevated alkaline phos, 111. Met SIRS criteria on admission due to leukocytosis, hypotension, tachycardia. Lactate normal. Received completion of sepsis guided fluid boluses on admission Zosyn/vancomycin - Blood cultures ordered - Trend CBC -IV Tylenol, morphine as needed for breakthrough pain Zofran as needed for nausea - General Surgery team consulted; may require drainage by IR, holding Eliquis (last dose 12/15 AM). Agree with Vanco and Zosyn. Additional recommendations pending progression and IR consultation. Appreciate recommendations History of exploratoryLaparotomy 07/08/2024 for abdominal fluid collection. abdominal cultures at that time positive for B fragilis/cutibacterium anerobe #UTI - outpatient tx with Bactrim started 12/12 -UCx 12/05 grew pansensitive Proteus mirabilis -UA does not appear acutely infected. Bactrim held, patient has been transition to Zosyn/vancomycin as -Possible obstruction on admit. Bladder scan every shift. Straight cath for PVR greater than 350, [place] if recurrent #renal insufficiency Suspected prerenal with hypotension/hypovolemia. Did not meet criteria for ALINA due to minimal rise. May have a mild obstructive component being monitored with straight cath. Has a history of prostate cancer s/p laparoscopic prostatectomy. IV fluids as noted Bactrim discontinued BMP trended #Hyponatremia - suspect 2/2 poor po intake. Na 133. Improving to 135 with fluids - trend BMP #HTN - hypotensive with sepsis above - hold telmisartan #GERD Continue PPI #polycythemia vera with myeloproliferative neoplasm patient reports has been off oxygen hydroxyurea while on Eliquis - White count baseline around 11, acutely elevated on admission - plt count 506, baseline - continue to follow with heme/onc, Dr. Valera History of colon cancer S/p right hemicolectomy due to colon cancer S/p ex lap 07/08/2024 for abdominal fluid collection #Hx of PE - 07/15/24 during hospitalization likely provoked given major abdominal surgery, prolonged hospital stay, malignancy. Holding Eliquis with potential procedure Could consider decreasing dose of Eliquis/ continue discontinuing in near future to return back on hydroxyurea #Hypothyroidism - continue levothyroxine VTE ppx: SCDs; coagulation held pending surgical/IR evaluation and potential intervention Dispo: PCU Admission and Anticipated Discharge Date Admission Date: December 15, 2024 Results & Data Results & Data Vital Signs (Past 12 Hours) Vital Signs Temp Pulse Pulse Pulse Resp BP BP 12/16/24 08:10 36.6 C 93 H 18 119/79 12/16/24 03:11 37.0 C 74 18 96/60 L 12/15/24 23:51 101 H 12/15/24 23:45 12/15/24 23:42 36.9 C 104 H 18 114/69 12/15/24 23:40 36.9 C 104 H 18 114/69 12/15/24 22:52 92 H 16 98/68 L 12/15/24 22:00 98 H 20 12/15/24 22:00 115/89 Pulse Ox O2 Del Method 12/16/24 08:10 95 Room Air 12/16/24 03:11 95 Room Air 12/15/24 23:51 12/15/24 23:45 Room Air 12/15/24 23:42 96 Room Air 12/15/24 23:40 96 Room Air 12/15/24 22:52 97 Room Air 12/15/24 22:00 97 12/15/24 22:00 PG Care Time/CCT Total # of Minutes Spent Total Time Spent with Patient: Total time spent is greater than 50% in coordination of care (as documented) at patient's floor/unit and/or counseling patient: Coding Diagnoses Sepsis A41.9 Intra-abdominal abscess K65.1 UTI (urinary tract infection) N39.0 Renal insufficiency, mild N28.9
[2024-12-16 08:32] LABS: ALC (manual) 2.94 K/uL (1.2-3.4); ANC (manual) 10.75 K/uL (1.4-6.5); Neutrophils % (manual) 73 %
[2024-12-16 08:33] LABS: Basophils % (manual) 0 %; Eosinophils # (manual) 0.13 K/uL (0-0.50); Eosinophils % (manual) 1 %; Lymphocytes # (manual) 2.94 K/uL (1.2-3.4); Lymphocytes % (manual) 20 %; Monocytes # (manual) 0.88 K/uL (0.11-0.59); Monocytes % (manual) 6 %; Neutrophils # (manual) 10.75 K/uL (1.40-6.50)
[2024-12-16] MEDS: PANTOprazole 40 MG/10 ML SYR IV SCH (08:56)
--- NOTE | 2024-12-16 09:41 | Surgery Progress Note ---
Date of Service December 16, 2024 Assessment & Plan (1) Intra-abdominal abscess: Plan: Patient with intra-abdominal abscess wbc 14 (21) , HR 93, bp 119/79, afebrile TTP RUQ , abd soft throughout Spoke with radiology department IR , they are unable to drain abscess today Discussed with surgeon Dr Durbin and hospitalist service Recommending transferring patient for IR drainage as above. pt seen. " I feel much better today". started to feel poorly about 1 week ago. states his bm's have been good and normal. lack of taste but has been having no problem eating and has actually gained some weight. reviewed ct scan. discussed with [facility] who is concerned there is a fistula from the colon to the right sided abdominal cavity. will d/w [facility] regarding definitive treatment thoughts. He is scheduled to go there for IR drain placement. awaiting call from Dr. Adkins from [place] to discuss. (2) Sepsis: Admission and Anticipated Discharge Date Admission Date: December 15, 2024 Subjective pt resting in bed, complaint of RUQ pain mild nausea Review of Systems Constitutional: no fever and no chills Respiratory: no dyspnea Cardiovascular: no chest pain Gastrointestinal: + abdominal pain and + nausea; no vomiti ng Physical Exam Constitutional: cooperative Respiratory: normal respiratory effort and able to speak in complete sentences; no respiratory distress Cardiovascular: Rate/Rhythm: + tachycardic Gastrointestinal (Abdomen): Inspection/Auscultation: + abdominal surgical scar; abdomen not distended Percussion/Palpation: + abdomen tender and abdomen soft Results & Data Vital Signs (Past 12 Hours) Vital Signs Temp Pulse Pulse Pulse Resp BP BP 12/16/24 08:10 97.9 F 93 H 18 119/79 12/16/24 03:11 98.6 F 74 18 96/60 L 12/15/24 23:51 101 H 12/15/24 23:45 12/15/24 23:42 98.4 F 104 H 18 114/69 12/15/24 23:40 98.4 F 104 H 18 114/69 12/15/24 22:52 92 H 16 98/68 L 12/15/24 22:00 98 H 20 12/15/24 22:00 115/89 Pulse Ox O2 Del Method 12/16/24 08:10 95 Room Air 12/16/24 03:11 95 Room Air 12/15/24 23:51 12/15/24 23:45 Room Air 12/15/24 23:42 96 Room Air 12/15/24 23:40 96 Room Air 12/15/24 22:52 97 Room Air 12/15/24 22:00 97 12/15/24 22:00 Diagnostic Findings [place], [place] [phone] CT Scan Report Patient: BEBA CASTRO Admit Date: 12/15/24 MR#: [id number] Address1: [address] [place] [address] Acct ID:[id number] Address2: Date: 1955 [facility] Zip: [place] [address] Age: 68 Location: ED Sex: M Room/Bed: Att Phy: Diagnosis: FRONT AND BACK PAIN RIGHT SIDE, NAUSEA Niurka Phy: Stephane Fiore DO Service Date: 12/15/24 Fam Phy: Interpreting Phy: Linda Rodriguez MDAdmit Phy: Ordering Phy: Ilir Corbin DO cc: ~ EXAMINATION: Abdomen and pelvis CT with CLINICAL HISTORY: Lower abdominal pain, nausea PRIORS: 09/05/2024 TECHNIQUE: Contiguous axial images were obtained through the abdomen and pelvis with the use of intravenous contrast. Sagittal and coronal reformations are supplied. FINDINGS: Mild hypoventilatory change at the right lung base. A subhepatic complicated fluid collection is again noted inferior to the right lobe of the liver, image 37, series 2. This is approximately round in shape, well circumscribed with a smooth thin periphery and measures 8.3 cm in anteroposterior dimension by 7.7 cm in transverse dimension by 10.0 cm in craniocaudal dimension this compares to, measuring at a similar location, 12.4 x 11.3 x 14.2 cm. The fluid collection now consists of gas and minimally complicated fluid which compares to fat and fluid on the prior examination.. A surgical suture or calcification is present within the posterior wall, unchanged. The pigtail drainage catheter has been removed. Surgical suture noted in the transverse colon abutting the mass. Moderate mesenteric inflammatory change is present surrounding the fluid collection with multiple prominent lymph nodes present in the mesentery medial and inferior to this. No extraluminal gas or ascites. A large amount of formed stool and gas present throughout the colon. Ascending colon may be absent. The liver shows no enhancing mass. The spleen, stomach, adrenals, aorta and IVC are morphologically unremarkable. Moderate atherosclerotic disease of the abdominal aorta noted. Kidneys enhance symmetrically. Small nonpathologically enlarged lymph nodes present in the root of the mesentery. No retroperitoneal adenopathy. Calcification noted in the urinary bladder. Urinary bladder is under distended. Moderate bilateral inguinal hernias, left greater than right containing fat. Phleboliths noted in the pelvis. A prostate is not identified, likely surgically absent with coarse calcifications in the surgical bed. In bone windows, advanced degenerative change throughout the lumbar spine. IMPRESSION: Infrahepatic complicated fluid collection, containing fluid and gas, smaller in size with interval removal of percutaneous pigtail catheter. Mild regional mesenteric inflammatory change and prominent nonpathologically enlarged lymph nodes. ACT 112: Positive. There are findings on this examination that require communication between the performing entity and the patient following Patient Test Result Information Act ([place] ACT 112) guidelines. Electronically signed by Linda Rodriguez 12-15-2024 7:51 PM Dictated: 12/15/[id number] Transcribed: Results CBC w Diff Results: RBC 3.70 M/uL (4.70-6.10) L 12/16/24 WBC 14.72 K/ul (4.8-10.8) H 12/16/24 Hgb 10.9 g/dl (14.0-18.0) L 12/16/24 Hct 32.9 % (42.0-52.0) L 12/16/24 MCV 88.9 fL (80.0-100.0) 12/16/24 MCH 29.5 pg (25.0-34.0) 12/16/24 MCHC 33.1 g/dL (32.0-36.0) 12/16/24 RDW Standard Deviation 51.1 fL (36.4-46.3) H 12/16/24 RDW Coefficient of Variation 15.8 % (11.5-14.5) H 12/16/24 Plt Count 436 K/uL (130-400) H 12/16/24 MPV 8.8 fL (9.4-12.4) L 12/16/24 Nucleated Red Blood Cells % (auto) 0.2 % 07/15 Nucleated RBC Absolute Count (auto) 0.02 K/uL (0.00-0.12) 1 09/15/23 Neutrophils (%) (Auto) % 12/16/24 Lymphocytes (%) (Auto) % 12/16/24 Monocytes # (Auto) K/uL (0.11-0.59) 12/16/24 Eosinophils # (Auto) K/uL (0.00-0.50) 12/16/24 Immature Granulocyte % (Auto) % 12/16/24 Neutrophils # (Auto) K/uL (1.40-6.50) 12/16/24 Lymphocytes # (Auto) K/uL (1.20-3.40) 12/16/24 Monocytes # (Auto) K/uL (0.11-0.59) 12/16/24 Eosinophils # (Auto) K/uL (0.00-0.50) 12/16/24 Basophils # (Auto) K/uL (0.00-0.20) 12/16/24 Immature Granulocyte # (Auto) K/uL (0.01-0.20) 12/16/24 ANC 10.75 K/uL (1.4-6.5) H 12/16/24 ALC 2.94 K/uL (1.2-3.4) 12/16/24 Neutrophils % (Manual) 73 % 12/16/24 Lymphocytes % (Manual) 20 % 12/16/24 Monocytes % (Manual) 6 % 12/16/24 Eosinophils % (Manual) 1 % 12/16/24 Basophils % (Manual) 0 % 12/16/24 Neutrophils # (Manual) 10.75 K/uL (1.40-6.50) H 12/16/24 Lymphocytes # (Manual) 2.94 K/uL (1.2-3.4) 12/16/24 Monocytes # (Manual) 0.88 K/uL (0.11-0.59) H 12/16/24 Eosinophils # (Manual) 0.13 K/uL (0-0.50) 12/16/24 Hypersegmented Neutrophils 1+ 02/15/24 Polychromasia 1+ 12/16/24 Echinocytes 1+ 05/29/22 Anisocytosis Present 02/15/24 Macrocytosis Present 04/27/24 Tear Drop Cells 1+ 07/09/24 Ovalocytes 1+ 07/09/24 Toxic Granulation 1+ 12/16/24 Dohle Bodies 1+ 12/16/24 PG Care Time/CCT Total # of Minutes Spent Total Time Spent with Patient: Total time spent is greater than 50% in coordination of care (as documented) at patient's floor/unit and/or counseling patient: Coding Level of Care Code 36641 SUB INP/OBS CARE 08/20MIN Diagnoses Intra-abdominal abscess K65.1 Sepsis A41.9
--- NOTE | 2024-12-16 09:47 | Pharmacy Report ---
Pharmacy PK ABX Note - Date of Service December 16, 2024 - Assessment and Plan Assessment 68 year old M receiving empiric vancomycin and piperacillin/tazobactam for treatment of sepsis presumed secondary to abdominal abscess. Patient w/ history of colon and prostate cancer s/p prostatectomy and hemicolectomy (05/12/24) w/ prior abscess postoperatively that required drainage by IR (07/12/24). Apparent ALINA on presentation w/ improvement overnight, SCr 1.47 mg/dL -> 1.28 mg/dL (baseline SCr ~0.9 mg/dL) - will dose by random level for now until resolution of ALINA. Pertinent microbiologic data includes: blood cultures x 2 and urine culture pending. Surgery consulted. Day # 2 of antimicrobial therapy. Plan Vancomycin * Loading dose: 1750 mg IV x 1 * Random level obtained this morning and resulted as 9 mcg/mL * Maintenance dose: 1250 mg IV every 12 hours * Regimen is predicted to achieve target AUC/PETRONA of 400-600 mg/L.hr * Random level ordered for: 12/17/24 in light of ALINA Pharmacy will continue to follow and will adjust dose/frequency as necessary. [facility] has transitioned to AUC monitoring for vancomycin. AUC/PETRONA is the preferred PK/PD target and is associated with decreased risk of nephrotoxicity compared to traditional trough targets.
[2024-12-16] MEDS: PLASMA-LYTE A 1,000 ML IV SCH (11:18)
[2024-12-16] MEDS: VANCOMYCIN HCL 1,250 MG in SODIUM CHLORIDE 0.9% 250 ML IV SCH (11:41)
[2024-12-16 12:11] VITALS: O2SAT 96
[2024-12-16] MEDS ORDERED: VANCOMYCIN HCL 1,500 MG in SODIUM CHLORIDE 0.9% 500 ML IV SCH (16:00)
--- NOTE | 2024-12-16 16:16 | Electrocardiogram Report ---
Test Reason : Blood Pressure : */* mmHG Vent. Rate : 86 BPM Atrial Rate : 86 BPM P-R Int : 156 ms QRS Dur : 74 ms QT Int : 374 ms P-R-T Axes : 47 1 18 degrees QTcB Int : 447 ms Normal sinus rhythm Low voltage QRS Borderline ECG When compared with ECG of 08-Jul-2024 11:20, No significant change was found Confirmed by Juanjo Upton ([id number]) on 12/16/2024 4:16:06 PM Referred By: REFERRED SELF Confirmed By: Juanjo Upton
[2024-12-16 16:34] VITALS: BP 110/74; RESP 20; TEMP 98.2
--- NOTE | 2024-12-16 18:01 | Discharge Summary ---
Discharge Summary Date of Service December 16, 2024 Principal Dx & Hospital Course #1 = Principal Diagnosis (1) Sepsis: (2) Intra-abdominal abscess: (3) UTI (urinary tract infection): (4) Renal insufficiency, mild: Plan 68-year-old male with past medical history of well-controlled hypertension, polycythemia vera versus myeloproliferative neoplasm last with platelet count 506/white count 11/hemoglobin stable 912 currently 10.9, with hx Right hemicolectomy due to colon cancer 05/12/2024. Was doing well until he returned to the emergency department 07/08/2024 for right upper quadrant abdominal pain radiating to the back. He underwent exploratory laparotomy 07/08/2020 for for an abdominal fluid collection. During that procedure a large firm palpable mass was palpable but not visible and there was no intra-abdominal fluid or foul odor suggestive of anastomotic leak. 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 No safe window for biopsy. It was recommended to close the abdomen and have radiology attempted percutaneous biopsy. patient underwent percutaneous drainage of 900 cc of fluid and drainage catheter was left in place. Abdominal cultures were positive for Bacteroides fragilis and cutibacterium/anaerobes. Pathology showed sheets of PMN leukocytes, bacteria, and no evidence of tumor. Antibiotics were transitioned to Augmentin. had a drain in place was removed in July, completed a course of antibiotics clinical improvement. Repeat imaging 09/05 showed a well-defined fluid collection but had not had any ongoing symptoms at that time. Decreasing cavity size and was recommended for interval CT in 6 months, monitoring for cavity to resolve. Did well up until he presented back to the ER 12/15/2024 with abdominal pain and several days of worsened appetite nausea and some vomiting with shaking and chills. Did have a recent UTI treated with amoxicillin and Bactrim, no ongoing urinary symptoms. CTA/P: Infrahepatic complicated fluid collection with fluid and gas, 8.3 x 7.7 x 10 cm. Compared to 09/05/2024 12.4 x 11.3 x 14.2 cm inflammatory change of the mesentery and lymphadenopathy noted. On initial eval Leukocytosis of 21, platelet count 506, creatinine 1.4; Hypotensive 96/60; tachycardic 120, improved following fluid. Lactate was not elevated Was seen by surgery and was recommended for IR however IR intervention was not recommended due to his last dose of Eliquis being 12/15. Patient clarifies that he last took this in the morning. IR is not available till the following weekend, was recommended for [place] [facility] Case was reviewed with [facility] and medical team, follow-up call was made to include general surgeon. Transfer was requested for IR drainage however communicating tract from bowel into the infrahepatic abscess was noted and reviewed. Was recommended for transfer for IR, and consultation between our surgical group and colorectal surgery at [facility] was requested. Patient was accepted for transfer for IR while ongoing discussion for best management of the communicating tract was pending. At bedside assessment patient had improved pain but was still runner in the right upper quadrant. He was not septic or toxic. BP 110/74 in reassessment, pulse 76.. Afebrile Was discharged to [facility] for further care #Sepsis/abdominal abscess - History of hemicolectomy (05/12/24) and previous abscess requiring drainage by IR (07/12/24) after ex lap (07/08/24). - CT-A/P: infrahepatic collection complicated fluid collection, surrounding lymphadenopathy. LFTs reveal mildly elevated alkaline phos, 111. Met SIRS criteria on admission due to leukocytosis, hypotension, tachycardia. Lactate normal. Received completion of sepsis guided fluid boluses on admission Zosyn/vancomycin - Blood cultures ordered - Trend CBC -IV Tylenol, morphine as needed for breakthrough pain Zofran as needed for nausea - General Surgery team consulted. Recommended for transfer. Case reviewed with [facility]. Transfer for IR services History of exploratoryLaparotomy 07/08/2024 for abdominal fluid collection. abdominal cultures at that time positive for B fragilis/cutibacterium anerobe #UTI - outpatient tx with Bactrim started 12/12 -UCx 12/05 grew pansensitive Proteus mirabilis -UA does not appear acutely infected. Bactrim held, patient has been transition to Zosyn/vancomycin as -Possible obstruction on admit. Bladder scan every shift. Straight cath for PVR greater than 350, Rasmussen if recurrent #renal insufficiency Suspected prerenal with hypotension/hypovolemia. Did not meet criteria for ALINA due to minimal rise. May have a mild obstructive component being monitored with straight cath. Has a history of prostate cancer s/p laparoscopic prostatectomy. IV fluids as noted Bactrim discontinued BMP trended #Hyponatremia - suspect 2/2 poor po intake. Na 133. Improving to 135 with fluids - trend BMP #HTN - hypotensive with sepsis above - hold telmisartan #GERD Continue PPI #polycythemia vera with myeloproliferative neoplasm patient reports has been off oxygen hydroxyurea while on Eliquis - White count baseline around 11, acutely elevated on admission - plt count 506, baseline - continue to follow with heme/onc, Dr. Valera History of colon cancer S/p right hemicolectomy due to colon cancer S/p ex lap 07/08/2024 for abdominal fluid collection #Hx of PE - 07/15/24 during hospitalization likely provoked given major abdominal surgery, prolonged hospital stay, malignancy. Holding Eliquis with potential procedure Could consider decreasing dose of Eliquis/ continue discontinuing in near future to return back on hydroxyurea #Hypothyroidism - continue levothyroxine VTE ppx: SCDs; coagulation held pending surgical/IR evaluation and potential intervention Dispo: PCU Admission HPI Per Admitting Provider Patient is a 68-year-old male s/p hemicolectomy due to colon cancer last fall with complications resulting in an abscess drained by IR IR 2 months later, hypertension, prostate cancer, hypothyroidism, HLD, history of PE. patient presented due to abdominal pain and weakness and was found to have infrahepatic fluid collection; does meet SIRS criteria with white count 21.34 and tachycardia (HR 111). Patient seen at bedside with his present via phone. He stated at the beginning of the week he developed right upper abdominal pain and back pain which then progressed to nausea and having a poor appetite; this felt exactly the same as to when he had an abscess before so he came in due to concern for this. He also endorses chills however denies any fever, dizziness, l ightheadedness, chest pain, shortness of breath. No episodes of vomiting. He did think his nausea could have been secondary to the Bactrim he was started on for UTI. He has had a long history of urinary tract issues since admission in May. He stated he had a Rasmussen catheter that he believes has messed up his urinary tract, he has an appointment with Dr. Alston the urologist mid January. Patient frequently has waxing and waning urinary retention as well as recent hematuria. He completed a course of amoxicillin for UTI and then was transition to Bactrim, he spoke with someone over the phone for this (no documentation in chart). He started Bactrim Thursday evening however missed the dose today due to feeling nauseous. 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 He has been off hydroxyurea since May due to being on Eliquis, he is supposed to resume hydroxyurea in February, his symptoms of polycythemia vera have returned and he has occasional dizziness and vertigo. He denies nicotine or alcohol use. He will be due for his evening medications. He is having a acid reflux at bedside, PPI ordered. He stated he previously got extremely dry mouth when made n.p.o., mouth swabs ordered. Wishes to be full code. Discharge Exam General: A&Ox3. NAD. Cooperative. HEENT: Atraumatic, normocephalic. Vision and hearing grossly intact Pulm: CTAB A&P. -wheezes, -rales, -rhonchi. Symmetrical chest rise. No increase in work of breathing. No respiratory distress. Cardiac: RRR, -mrg. Radial pulses intact and symmetrical. Abdominal: Right upper quadrant tender to palpation. No rebound/involuntary guarding Discharge Plan Discharge Items Patient Disposition: Transfer Acute Care Hospital Reason For Visit: SEPSIS, ABDOMIAL ABSCESS Discharge Diagnosis: Abdominal Abscess Condition on Discharge: Fair Activity: Resume your previous activity Non-emergency contact: Hospitalist and Surgeon Call non-emergency contact if: you have any medication questions, your symptoms worsen and your pain is not controlled Follow-up/Referrals: Stephane Fiore, [Primary Care Provider] - Diet: Nothing by Mouth Addtl Attending Provider Instructions: 68-year-old male with past medical history of well-controlled hypertension, polycythemia vera versus myeloproliferative neoplasm last with platelet count 506/white count 11/hemoglobin stable 912 currently 10.9, with hx Right hemicolectomy due to colon cancer 05/12/2024. Was doing well until he returned to the emergency department 07/08/2024 for right upper quadrant abdominal pain radiating to the back. He underwent exploratory laparotomy 07/08/2020 for for an abdominal fluid collection. During that procedure a large firm palpable mass was palpable but not visible and there was no intra-abdominal fluid or foul odor suggestive of anastomotic leak. 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 No safe window for biopsy. It was recommended to close the abdomen and have radiology attempted percutaneous biopsy. patient underwent percutaneous drainage of 900 cc of fluid and drainage catheter was left in place. Abdominal cultures were positive for Bacteroides fragilis and cutibacterium/anaerobes. Pathology showed sheets of PMN leukocytes, bacteria, and no evidence of tumor. Antibiotics were transitioned to Augmentin. had a drain in place was removed in July, completed a course of antibiotics clinical improvement. Repeat imaging 09/05 showed a well-defined fluid collection but had not had any ongoing symptoms at that time. Decreasing cavity size and was recommended for interval CT in 6 months, monitoring for cavity to resolve. Did well up until he presented back to the ER 12/15/2024 with abdominal pain and several days of worsened appetite nausea and some vomiting with shaking and chills. Did have a recent UTI treated with amoxicillin and Bactrim, no ongoing urinary symptoms. CTA/P: Infrahepatic complicated fluid collection with fluid and gas, 8.3 x 7.7 x 10 cm. Compared to 09/05/2024 12.4 x 11.3 x 14.2 cm inflammatory change of the mesentery and lymphadenopathy noted. On initial eval Leukocytosis of 21, platelet count 506, creatinine 1.4; Hypotensive 96/60; tachycardic 120, improved following fluid. Lactate was not elevated Was seen by surgery and was recommended for IR however IR intervention was not recommended due to his last dose of Eliquis being 12/15. Patient clarifies that he last took this in the morning. IR is not available till the following weekend, was recommended for transfer [place] [facility] Case was reviewed with [facility] and medical team, follow-up call was made to include general surgeon. Transfer was requested for IR drainage however communicating tract from bowel into the infrahepatic abscess was noted and reviewed. Was recommended for transfer for IR, and consultation between our surgical group and colorectal surgery at [facility] was requested. Patient was accepted for transfer for IR while ongoing discussion for best management of the communicating tract was pending. Was discharged to [facility] for further care Pending Studies at Discharge: No Stand-Alone Forms: [facility] Skilled Items Patient informed of condition?: Yes DNR: Yes Discharge Level of Care: Other Communicable Disease: No Discharge Prognosis: Stable Lines: None Urinary Catheter: No Medications and DC Order Prescriptions: Continued MegaRed Metz-3 Krill Oil [id number] mg capsule 1 cap PO QAM sildenafil (pulm.hypertension) 20 mg tablet 20 mg PO ONCE PRN (Reason: sexual activity) Qty: 30 5RF Rx Instructions: Take 1-5 tablets approx 1 hour prior to activity. Avoid large or heavy meals for maximum effectiveness. telmisartan 20 mg tablet 20 mg PO QAM 90 Days Qty: 90 3RF rosuvastatin 5 mg tablet 5 mg PO HS Qty: 90 3RF Rx Instructions: TAKE 1 TABLET AT BEDTIME Eliquis 5 mg tablet 5 mg PO BID Qty: 60 4RF levothyroxine 75 mcg tablet 75 mcg PO QAM Qty: 90 3RF sulfamethoxazole-trimethoprim [Bactrim DS] 800-160 mg tablet 1 tab PO BID 7 Days Qty: 14 0RF famotidine 20 mg tablet 20 mg PO UD PRN (Reason: Acid Reflux) coQ10 (ubiquinol) 100 mg capsule 100 mg PO QAM folic acid 1 mg tablet 1 mg PO QAM cholecalciferol (vitamin D3) [Vitamin D3] 125 mcg (5,000 unit) Tablet 125 mcg PO QAM melatonin 5 mg Tablet,Chewable 5 mg PO HS ondansetron 4 mg tablet,disintegrating 4 mg PO Q6H PRN (Reason: nausea and vomiting) Qty: 20 0RF cyanocobalamin (vitamin B-12) 500 mcg tablet 500 mcg PO QAM omeprazole 20 mg capsule,delayed release(DR/EC) 20 mg PO QAM hydroxyurea 500 mg capsule 0 mg PO UD Hold Instructions: Resume on 06/10/24. HOLD medication until your follow up with Dr. Durbin and he states you may resume this medication Rx Instructions: Currently on hold per pt: Original Directions 1000mg M/W/F and 500mg Tues/Thurs/Sat/Sun meclizine 12.5 mg tablet 12.5 - 25 mg PO TID PRN (Reason: dizziness) Patient Comments: rare use Rx Instructions: 1 to 2 tablets PO three times a day PRN; Discharge Orders: Discharge Order (Routine); Ordered 12/16/24 Ordered By: Humberto Magana Admission Data Admit Date/Time: 12/15/24 21:20 Attending Provider: Humberto Magana Admit Provider: Tori Camarillo Primary Care Provider: Stephane Fiore Other Providers: Manuel Reed Other Interventions: Discharge Summary Assessment (RN) Last Done: 12/16/24 19:45 Hospital Stay Data Consultations 12/15/24 20:32 ED Decision to Admit Stat 12/15/24 20:39 Consult General Surgery Routine 12/16/24 17:25 Burn CD for patient Stat Diagnostic Imagining Performed 12/15/24 18:39 CT abd pelvis IV con only Stat Discharge Instructions Given to Patient (Per Discharging Provider) 68-year-old male with past medical history of well-controlled hypertension, polycythemia vera versus myeloproliferative neoplasm last with platelet count 506/white count 11/hemoglobin stable 912 currently 10.9, with hx Right hemicolectomy due to colon cancer 05/12/2024. Was doing well until he returned to the emergency department 07/08/2024 for right upper quadrant abdominal pain radiating to the back. He underwent exploratory laparotomy 07/08/2020 for for an abdominal fluid collection. During that procedure a large firm palpable mass was palpable but not visible and there was no intra-abdominal fluid or foul odor suggestive of anastomotic leak. 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 No safe window for biopsy. It was recommended to close the abdomen and have radiology attempted percutaneous biopsy. patient underwent percutaneous drainage of 900 cc of fluid and drainage catheter was left in place. Abdominal cultures were positive for Bacteroides fragilis and cutibacterium/anaerobes. Pathology showed sheets of PMN leukocytes, bacteria, and no evidence of tumor. Antibiotics were transitioned to Augmentin. had a drain in place was removed in July, completed a course of antibiotics clinical improvement. Repeat imaging 09/05 showed a well-defined fluid collection but had not had any ongoing symptoms at that time. Decreasing cavity size and was recommended for interval CT in 6 months, monitoring for cavity to resolve. Did well up until he presented back to the ER 12/15/2024 with abdominal pain and several days of worsened appetite nausea and some vomiting with shaking and chills. Did have a recent UTI treated with amoxicillin and Bactrim, no ongoing urinary symptoms. CTA/P: Infrahepatic complicated fluid collection with fluid and gas, 8.3 x 7.7 x 10 cm. Compared to 09/05/2024 12.4 x 11.3 x 14.2 cm inflammatory change of the mesentery and lymphadenopathy noted. On initial eval Leukocytosis of 21, platelet count 506, creatinine 1.4; Hypotensive 96/60; tachycardic 120, improved following fluid. Lactate was not elevated Was seen by surgery and was recommended for IR however IR intervention was not recommended due to his last dose of Eliquis being 12/15. Patient clarifies that he last took this in the morning. IR is not available till the following weekend, was recommended for transfer to [facility]. Case was reviewed with [facility] and medical team, follow-up call was made to include general surgeon. Transfer was requested for IR drainage however communicating tract from bowel into the infrahepatic abscess was noted and reviewed. Was recommended for transfer for IR, and consultation between our surgical group and colorectal surgery at [facility] was requested. Patient was accepted for transfer for IR while ongoing discussion for best management of the communicating tract was pending. Was discharged to [facility] for further care Total Time Total Time Spent Total Time Spent (In Minutes): 75 Coding Level of Care Code 67956 INP/OBS DISCH >30 MIN Diagnoses Sepsis A41.9 Intra-abdominal abscess K65.1 UTI (urinary tract infection) N39.0 Renal insufficiency, mild N28.9
[2024-12-16 23:33] VITALS: PULSE 92
== END 2024-12-16 19:45 | disposition short-term general hospital (02) | DRG 871 ==
LOC: ED 17:29 → SUATTDRO 21:20 → 4W 21:20
DX: D45 Polycythemia vera; E86.1 Hypovolemia; K65.1 Peritoneal abscess; Z86.711 Personal history of pulmonary embolism; C94.6 Myelodysplastic disease, not elsewhere classified; Z79.01 Long term (current) use of anticoagulants; E03.9 Hypothyroidism, unspecified; E78.5 Hyperlipidemia, unspecified; Z85.46 Personal history of malignant neoplasm of prostate; E87.1 Hypo-osmolality and hyponatremia; Z85.038 Personal history of other malignant neoplasm of large intestine; N39.0 Urinary tract infection, site not specified; A41.9 Sepsis, unspecified organism; Z79.890 Hormone replacement therapy; I10 Essential (primary) hypertension